=== PATIENT | female | born 1970 | race Caucasian/White ===

== ENCOUNTER 2017-09-23 21:34 | Inpatient (IN) | payer OTHER ==
[2017-09-23] MEDS: HEPARIN 5,000 UNIT/0.5 ML VIAL SC ×2 (09:00→21:00)
[2017-09-24 01:09] LABS: ADD MAN DIFF? NO
[2017-09-24 01:13] LABS: WHITE BLOOD COUNT 12.7 10^3/ul (4.8-10.8)
[2017-09-24 01:13] LABS: BASOPHILS % 0.2 % (0.0-2.0); EOSINOPHILS # 0.1 10^3/ul (0.0-0.5); EOSINOPHILS % 0.9 % (0.0-7.0); HEMOGLOBIN 7.3 g/dl (12.0-16.0); LYMPHOCYTES # 1.3 10^3/ul (0.8-2.9); LYMPHOCYTES % 10.5 % (15.0-51.0); MEAN CORPUSCULAR HEMOGLOBIN 26.3 pg (29.0-33.0); MEAN CORPUSCULAR HGB CONC 33.2 g/dl (32.0-37.0); MEAN CORPUSCULAR VOLUME 79.1 fl (82.0-101.0); MONOCYTE # 0.5 10^3/ul (0.3-0.9); MONOCYTES % 3.6 % (0.0-11.0); NEUTROPHIL # 10.7 10^3/ul (1.6-7.5); NEUTROPHILS % 84.2 % (39.0-77.0); PLATELET COUNT 435 10^3/UL (140-415); RED BLOOD COUNT 2.78 10^6/ul (4.20-5.40); RED CELL DISTRIBUTION WIDTH 13.9 % (11.5-14.5)
[2017-09-24 01:30] LABS: PHOSPHORUS 5.6 mg/dl (2.5-4.9)
[2017-09-24 01:30] LABS: MAGNESIUM 2.1 mg/dl (1.7-2.5)
[2017-09-24 01:31] LABS: INR 1.01; PROTIME 13.4 Sec (11.9-14.9)
[2017-09-24 01:32] LABS: PARTIAL THROMBOPLASTIN TIME 34.3 Sec (25.0-35.0)
[2017-09-24] MEDS: ACETAMINOPHEN 325 MG TAB PO ×2 (01:33→20:13)
[2017-09-24 01:34] LABS: D-DIMER 3446.92 ng/ml (<460)
[2017-09-24 03:24] LABS: ALANINE AMINOTRANSFERASE 64 IU/L (13-69); ALBUMIN 3.1 g/dl (3.3-4.9); ALBUMIN/GLOBULIN RATIO 0.88; ALKALINE PHOSPHATASE 108 IU/L (42-121); ANION GAP 11 (8-16); ASPARTATE AMINO TRANSFERASE 42 IU/L (15-46); BILIRUBIN,INDIRECT 0.9 mg/dl (0-1.1); BILIRUBIN,TOTAL 0.9 mg/dl (0.2-1.3); BLOOD UREA NITROGEN 45 mg/dl (7-20); CALCIUM 8.6 mg/dl (8.4-10.2); CARBON DIOXIDE 21 mmol/L (21-31); CHLORIDE 110 mmol/L (97-110); CREATININE 3.25 mg/dl (0.44-1.00); GLUCOSE 106 mg/dl (70-220); POTASSIUM 3.2 mmol/L (3.5-5.1); SODIUM 139 mmol/L (135-144); TOTAL PROTEIN 6.6 g/dl (6.1-8.1)
[2017-09-24] MEDS: HEPARIN 5,000 UNIT/0.5 ML VIAL SC ×2 (08:37→20:17)
[2017-09-24] MEDS ORDERED: ONDANSETRON 4 MG INJ IV (09:30)
[2017-09-24] MEDS ORDERED: NACL 0.9% 3 ML SYG IV (09:30)
[2017-09-24] MEDS ORDERED: ALBUTEROL/IPRATROPIUM (NEB) 3 ML AMP HHN (09:30)
[2017-09-24] MEDS: POTASSIUM CHLORIDE (SR) 20 MEQ TAB PO (10:18)
[2017-09-24] MEDS: LEVOFLOXACIN 500MG/D5W (PMX) 100 ML IVPB (10:18)
[2017-09-24] MEDS: CEFTRIAXONE 1 GM/50 ML (PMX) 50 ML IVPB (13:08)
[2017-09-24] MEDS: AZITHROMYCIN 500MG/NS (PMX) 250 ML IVPB (13:56)
[2017-09-24] MEDS: SOD CHLORIDE 0.45% 1,000 ML IV (17:39)
[2017-09-24 18:31] LABS: HAAIG REFLEX REFLEX FILED
[2017-09-24 18:50] LABS: MAGNESIUM 2.1 mg/dl (1.7-2.5)
[2017-09-24 19:00] LABS: B-TYPE NATRIURETIC PEPTIDE 4450 PG/ML (0-125)
[2017-09-24 19:12] LABS: IRON 25 ug/dl (35-150)
[2017-09-24 19:21] LABS: % IRON SATURATION 10 % SAT (22-52); TOTAL IRON BINDING CAPACITY 254 ug/dl (241-421)
[2017-09-24 19:22] LABS: HEPATITIS B SURFACE ANTIGEN NEGATIVE (NEGATIVE)
[2017-09-24 19:40] LABS: HEPATITIS B CORE ANTIBODY NEGATIVE (NEGATIVE); HEPATITIS C VIRAL ANTIBODY NEGATIVE (NEGATIVE)
[2017-09-24] MEDS ORDERED: HEPARIN 5,000 UNIT/0.5 ML VIAL SC (21:00)
[2017-09-25] MEDS: ZOLPIDEM 5 MG TAB PO (02:20)
[2017-09-25 06:08] LABS: ADD MAN DIFF? NO
[2017-09-25 06:14] LABS: WHITE BLOOD COUNT 11.2 10^3/ul (4.8-10.8)
[2017-09-25 06:14] LABS: ABNORMAL IP MESSAGE 1; BASOPHILS % 0.1 % (0.0-2.0); EOSINOPHILS # 0.2 10^3/ul (0.0-0.5); EOSINOPHILS % 1.8 % (0.0-7.0); HEMATOCRIT 20.1 % (37.0-47.0); LYMPHOCYTES # 1.3 10^3/ul (0.8-2.9); LYMPHOCYTES % 11.8 % (15.0-51.0); MEAN CORPUSCULAR HEMOGLOBIN 25.7 pg (29.0-33.0); MEAN CORPUSCULAR HGB CONC 32.3 g/dl (32.0-37.0); MEAN CORPUSCULAR VOLUME 79.4 fl (82.0-101.0); MEAN PLATELET VOLUME 9.2 fl (7.4-10.4); MONOCYTE # 0.6 10^3/ul (0.3-0.9); MONOCYTES % 5.2 % (0.0-11.0); NEUTROPHILS % 80.3 % (39.0-77.0); PLATELET COUNT 449 10^3/UL (140-415); RED BLOOD COUNT 2.53 10^6/ul (4.20-5.40); RED CELL DISTRIBUTION WIDTH 14.3 % (11.5-14.5)
[2017-09-25 06:52] LABS: PHOSPHORUS 4.4 mg/dl (2.5-4.9)
[2017-09-25 06:55] LABS: IRON 24 ug/dl (35-150)
[2017-09-25 07:02] LABS: ALANINE AMINOTRANSFERASE 89 IU/L (13-69); ALBUMIN 3.1 g/dl (3.3-4.9); ALBUMIN/GLOBULIN RATIO 0.93; ALKALINE PHOSPHATASE 123 IU/L (42-121); ANION GAP 12 (8-16); ASPARTATE AMINO TRANSFERASE 59 IU/L (15-46); BILIRUBIN,INDIRECT 1.2 mg/dl (0-1.1); BILIRUBIN,TOTAL 1.2 mg/dl (0.2-1.3); BLOOD UREA NITROGEN 53 mg/dl (7-20); CALCIUM 8.2 mg/dl (8.4-10.2); CARBON DIOXIDE 19 mmol/L (21-31); CHLORIDE 114 mmol/L (97-110); GLUCOSE 101 mg/dl (70-220); HEMOGLOBIN 6.5 g/dl (12.0-16.0); MAGNESIUM 2.2 mg/dl (1.7-2.5); POTASSIUM 3.2 mmol/L (3.5-5.1); SODIUM 142 mmol/L (135-144); TOTAL PROTEIN 6.4 g/dl (6.1-8.1)
[2017-09-25 07:03] LABS: POSITIVE DIFF @See below
[2017-09-25 07:04] LABS: TOTAL IRON BINDING CAPACITY 245 ug/dl (241-421)
[2017-09-25 07:13] LABS: % IRON SATURATION 10 % SAT (22-52)
[2017-09-25] MEDS: AMLODIPINE 5 MG TAB PO (08:30)
[2017-09-25] MEDS: HEPARIN 5,000 UNIT/0.5 ML VIAL SC ×2 (08:33→20:21)
[2017-09-25 08:40] LABS: HEMOGLOBIN A1C 5.9 % (0-5.9)
[2017-09-25 10:41] LABS: ANISOCYTOSIS 1+ (0-0); BAND NEUTROPHILS #M 0.1 10^3/ul (0.0-0.6); BAND NEUTROPHILS % (M) 1 % (0-4); EOSINOPHILS % (M) 1 % (0-7); HYPOCHROMASIA 1+ (0-0); LYMPHOCYTES #M 0.6 10^3/ul (0.8-2.9); LYMPHOCYTES % (M) 6 % (15-51); MICROCYTOSIS 1+ (0-0); MONOCYTE #M 0.1 10^3/ul (0.3-0.9); MONOCYTES % (M) 1 % (0-11); PLATELET ESTIMATE NORMAL; POLYCHROMASIA 3+ (0-0); SEG NEUT #M 10.2 10^3/ul (1.6-7.5); SEGMENTED NEUTROPHILS (M) % 91 % (39-77); SMUDGE%M 15 % (0-0)
[2017-09-25] MEDS: POTASSIUM CHLORIDE (SR) 20 MEQ TAB PO (10:43)
[2017-09-25] MEDS: CEFTRIAXONE 1 GM/50 ML (PMX) 50 ML IVPB (12:06)
[2017-09-25] MEDS: AZITHROMYCIN 500MG/NS (PMX) 250 ML IVPB (12:14)
[2017-09-25] MEDS: SOD CHLORIDE 0.45% 1,000 ML IV (13:30)
[2017-09-25 15:21] LABS: IMMEDIATE SPIN CROSSMATCH 1 2
[2017-09-25] MEDS: SOD CHLORIDE 0.9% 250 ML IV* (15:29)
[2017-09-25] MEDS: ACETAMINOPHEN 325 MG TAB PO (16:01)
[2017-09-25 17:02] LABS: COMPLEMENT C3 179 mg/dl (88-165); COMPLEMENT C4 42 mg/dl (14-44)
[2017-09-25 17:40] LABS: RETICULOCYTE COUNT # 0.081 X10^6 (0.020-0.110); RETICULOCYTE COUNT % 2.9 % (0.5-1.5)
[2017-09-25 17:40] LABS: RETICULOCYTE RBC 2.83
[2017-09-25 17:55] LABS: CREATININE,URINE RANDOM 73.92 mg/dl (20-320); CREATININE,URINE RANDOM 74.13 mg/dl (20-320)
[2017-09-25 18:04] LABS: SODIUM,URINE RANDOM 41 mmol/L (30-90)
[2017-09-25 18:05] LABS: LACTATE DEHYDROGENASE 2001 IU/L (313-618)
[2017-09-25] MEDS: FUROSEMIDE 40 MG INJ IV (18:07)
[2017-09-25 18:39] LABS: ADD UMIC YES; UR AMORPHOUS CRYSTAL MODERATE /HPF (NONE SEEN); UR ASCORBIC ACID NEGATIVE (NEGATIVE); UR BACTERIA FEW /HPF (NONE SEEN); UR BILIRUBIN (Dip) NEGATIVE (NEGATIVE); UR BLOOD (Dip) 3+ mg/dL (NEGATIVE); UR CLARITY SLIGHTLY CLOUDY (CLEAR); UR COLOR YELLOW (YELLOW); UR GLUCOSE (Dip) NEGATIVE (NEGATIVE); UR KETONES (Dip) NEGATIVE (NEGATIVE); UR LEUKOCYTE ESTERASE (Dip) NEGATIVE Leu/ul (NEGATIVE); UR NITRITE (Dip) NEGATIVE (NEGATIVE); UR RBC 165 /HPF (0-5); UR SPECIFIC GRAVITY (Dip) 1.015 (1.003-1.030); UR SQUAMOUS EPITHELIAL CELL FEW /HPF (FEW); UR TOTAL PROTEIN (Dip) 3+ mg/dl (NEGATIVE); UR UROBILINOGEN (Dip) NEGATIVE (NEGATIVE); UR WBC 20 /HPF (0-5)
[2017-09-25 19:03] LABS: PROTEIN URINE > 600.0 mg/dl (0.0-11.9); PROTEIN/CREAT RATIO 8.11 RATIO
[2017-09-25] MEDS ORDERED: ZOLPIDEM 5 MG TAB PO (21:00)
[2017-09-25 21:03] LABS: OSMOLALITY,URINE 366 mOsm/kg (250-1200)
[2017-09-25] MEDS: LORAZEPAM 2 MG INJ IV (21:40)
[2017-09-26 07:25] LABS: ADD MAN DIFF? NO
[2017-09-26 07:34] LABS: WHITE BLOOD COUNT 11.7 10^3/ul (4.8-10.8)
[2017-09-26 07:34] LABS: BASOPHILS % 0.1 % (0.0-2.0); EOSINOPHILS # 0.2 10^3/ul (0.0-0.5); HEMATOCRIT 25.1 % (37.0-47.0); HEMOGLOBIN 8.3 g/dl (12.0-16.0); LYMPHOCYTES # 1.2 10^3/ul (0.8-2.9); LYMPHOCYTES % 10.5 % (15.0-51.0); MEAN CORPUSCULAR HEMOGLOBIN 26.6 pg (29.0-33.0); MEAN CORPUSCULAR HGB CONC 33.1 g/dl (32.0-37.0); MEAN CORPUSCULAR VOLUME 80.4 fl (82.0-101.0); MEAN PLATELET VOLUME 8.9 fl (7.4-10.4); MONOCYTE # 0.5 10^3/ul (0.3-0.9); MONOCYTES % 4.4 % (0.0-11.0); NEUTROPHIL # 9.5 10^3/ul (1.6-7.5); NEUTROPHILS % 81.8 % (39.0-77.0); PLATELET COUNT 449 10^3/UL (140-415); RED BLOOD COUNT 3.12 10^6/ul (4.20-5.40); RED CELL DISTRIBUTION WIDTH 15.1 % (11.5-14.5)
[2017-09-26 07:55] LABS: ALANINE AMINOTRANSFERASE 92 IU/L (13-69); ALBUMIN 3.1 g/dl (3.3-4.9); ALBUMIN/GLOBULIN RATIO 0.86; ALKALINE PHOSPHATASE 143 IU/L (42-121); ANION GAP 13 (8-16); ASPARTATE AMINO TRANSFERASE 56 IU/L (15-46); BILIRUBIN,INDIRECT 1.7 mg/dl (0-1.1); BILIRUBIN,TOTAL 1.7 mg/dl (0.2-1.3); BLOOD UREA NITROGEN 63 mg/dl (7-20); CALCIUM 8.2 mg/dl (8.4-10.2); CARBON DIOXIDE 19 mmol/L (21-31); CHLORIDE 114 mmol/L (97-110); CREATININE 4.61 mg/dl (0.44-1.00); GLUCOSE 98 mg/dl (70-220); POTASSIUM 3.3 mmol/L (3.5-5.1); SODIUM 143 mmol/L (135-144); TOTAL PROTEIN 6.7 g/dl (6.1-8.1)
[2017-09-26] MEDS: AMLODIPINE 5 MG TAB PO (09:05)
[2017-09-26] MEDS: HEPARIN 5,000 UNIT/0.5 ML VIAL SC (09:07)
[2017-09-26] MEDS: SOD CHLORIDE 0.45% 1,000 ML IV (09:13)
[2017-09-26] MEDS: CEFTRIAXONE 1 GM/50 ML (PMX) 50 ML IVPB (12:47)
[2017-09-26] MEDS: POTASSIUM CHLORIDE (SR) 20 MEQ TAB PO (13:02)
[2017-09-26] MEDS: METHYLPREDNISOLONE 125 MG INJ IV ×2 (14:16→22:34)
[2017-09-26] MEDS: FUROSEMIDE 20 MG INJ IV (14:17)
[2017-09-26] MEDS: FAMOTIDINE 20 MG INJ IV (14:17)
[2017-09-26] MEDS: ZOLPIDEM 5 MG TAB PO (22:45)
[2017-09-27] MEDS: AMLODIPINE 5 MG TAB PO (08:18)
[2017-09-27] MEDS: METHYLPREDNISOLONE 125 MG INJ IV ×2 (08:19→21:19)
[2017-09-27] MEDS: FUROSEMIDE 20 MG INJ IV (08:19)
[2017-09-27] MEDS: FAMOTIDINE 20 MG INJ IV (08:19)
[2017-09-27 08:22] LABS: HIV 1&2 ANTIBODY NEGATIVE (NEGATIVE)
[2017-09-27 10:09] LABS: ADD MAN DIFF? NO
[2017-09-27 10:14] LABS: WHITE BLOOD COUNT 13.4 10^3/ul (4.8-10.8)
[2017-09-27 10:14] LABS: BASOPHILS % 0.1 % (0.0-2.0); HEMATOCRIT 25.7 % (37.0-47.0); HEMOGLOBIN 8.6 g/dl (12.0-16.0); LYMPHOCYTES % 7.2 % (15.0-51.0); MEAN CORPUSCULAR HEMOGLOBIN 26.4 pg (29.0-33.0); MEAN CORPUSCULAR HGB CONC 33.5 g/dl (32.0-37.0); MEAN CORPUSCULAR VOLUME 78.8 fl (82.0-101.0); MEAN PLATELET VOLUME 9.2 fl (7.4-10.4); MONOCYTE # 0.2 10^3/ul (0.3-0.9); MONOCYTES % 1.8 % (0.0-11.0); NEUTROPHILS % 89.5 % (39.0-77.0); PLATELET COUNT 472 10^3/UL (140-415); RED BLOOD COUNT 3.26 10^6/ul (4.20-5.40); RED CELL DISTRIBUTION WIDTH 15.3 % (11.5-14.5)
[2017-09-27 10:38] LABS: ALANINE AMINOTRANSFERASE 83 IU/L (13-69); ALBUMIN 3.3 g/dl (3.3-4.9); ALBUMIN/GLOBULIN RATIO 0.91; ALKALINE PHOSPHATASE 152 IU/L (42-121); ANION GAP 15 (8-16); ASPARTATE AMINO TRANSFERASE 37 IU/L (15-46); BILIRUBIN,INDIRECT 1.2 mg/dl (0-1.1); BILIRUBIN,TOTAL 1.2 mg/dl (0.2-1.3); BLOOD UREA NITROGEN 88 mg/dl (7-20); CALCIUM 8.2 mg/dl (8.4-10.2); CARBON DIOXIDE 16 mmol/L (21-31); CHLORIDE 113 mmol/L (97-110); CREATININE 5.43 mg/dl (0.44-1.00); GLUCOSE 141 mg/dl (70-220); POTASSIUM 3.4 mmol/L (3.5-5.1); SODIUM 141 mmol/L (135-144); TOTAL PROTEIN 6.9 g/dl (6.1-8.1)
[2017-09-27 13:46] LABS: ANA SCREEN NEGATIVE (NEGATIVE)
[2017-09-27] MEDS: POTASSIUM CHLORIDE 100 ML IVPB (14:13)
[2017-09-27 14:32] LABS: ANCA SCREEN NEGATIVE (NEGATIVE)
[2017-09-27] MEDS: POTASSIUM CHLORIDE (SR) 20 MEQ TAB PO (14:54)
[2017-09-27] MEDS: LORAZEPAM 2 MG INJ IV (21:44)
[2017-09-28] MEDS: DIPHENHYDRAMINE 50 MG INJ IV (06:57)
[2017-09-28 08:27] LABS: ADD MAN DIFF? NO
[2017-09-28] MEDS: PROPOFOL 40 ML (08:27)
[2017-09-28] MEDS: FENTAnyl 50 MCG/ML VIAL (08:27)
[2017-09-28] MEDS: MIDAZOLAM 1 MG/ML 2 ML INJ (08:27)
[2017-09-28 08:36] LABS: WHITE BLOOD COUNT 17.5 10^3/ul (4.8-10.8)
[2017-09-28 08:36] LABS: BASOPHILS % 0.1 % (0.0-2.0); HEMATOCRIT 26.4 % (37.0-47.0); HEMOGLOBIN 8.6 g/dl (12.0-16.0); LYMPHOCYTES # 1.3 10^3/ul (0.8-2.9); LYMPHOCYTES % 7.4 % (15.0-51.0); MEAN CORPUSCULAR HEMOGLOBIN 25.9 pg (29.0-33.0); MEAN CORPUSCULAR HGB CONC 32.6 g/dl (32.0-37.0); MEAN CORPUSCULAR VOLUME 79.5 fl (82.0-101.0); MEAN PLATELET VOLUME 9.1 fl (7.4-10.4); MONOCYTE # 0.6 10^3/ul (0.3-0.9); MONOCYTES % 3.5 % (0.0-11.0); NEUTROPHIL # 15.3 10^3/ul (1.6-7.5); NEUTROPHILS % 87.2 % (39.0-77.0); PLATELET COUNT 512 10^3/UL (140-415); RED BLOOD COUNT 3.32 10^6/ul (4.20-5.40); RED CELL DISTRIBUTION WIDTH 15.7 % (11.5-14.5)
[2017-09-28] MEDS: AMLODIPINE 5 MG TAB PO ×2 (08:37→11:16)
[2017-09-28] MEDS: METHYLPREDNISOLONE 125 MG INJ IV ×2 (08:54→11:16)
[2017-09-28] MEDS: FAMOTIDINE 20 MG INJ IV ×2 (08:54→17:22)
[2017-09-28] MEDS: ONDANSETRON 4 MG INJ (08:56)
[2017-09-28 09:04] LABS: ANION GAP 15 (8-16); BLOOD UREA NITROGEN 116 mg/dl (7-20); CALCIUM 8.1 mg/dl (8.4-10.2); CARBON DIOXIDE 17 mmol/L (21-31); CHLORIDE 113 mmol/L (97-110); CREATININE 6.38 mg/dl (0.44-1.00); GLUCOSE 122 mg/dl (70-220); LACTATE DEHYDROGENASE 1721 IU/L (313-618); MAGNESIUM 2.3 mg/dl (1.7-2.5); PHOSPHORUS 7.6 mg/dl (2.5-4.9); POTASSIUM 4.2 mmol/L (3.5-5.1); SODIUM 141 mmol/L (135-144)
[2017-09-28] MEDS: SOD CHLORIDE 0.9% 500 ML (09:07)
[2017-09-28] MEDS ORDERED: HYDROmorphONE 1 MG/5 ML IV SYRINGE IV ×3 (09:30)
[2017-09-28] MEDS ORDERED: DIPHENHYDRAMINE 50 MG INJ IV (09:30)
[2017-09-28] MEDS ORDERED: MEPERIDINE 25 MG INJ IV (09:30)
[2017-09-28] MEDS ORDERED: FENTAnyl 50 MCG/ML VIAL IV ×2 (09:30)
[2017-09-28] MEDS ORDERED: ONDANSETRON 4 MG INJ IV (09:30)
[2017-09-28] MEDS: LIDOCAINE 1% (MDV) 10 ML INJ (09:45)
[2017-09-28] MEDS: GELATIN 12MM X 7 MM SPONGE (09:50)
[2017-09-28] MEDS: CALCIUM ACETATE 667 MG CAP PO (17:22)
[2017-09-28] MEDS: METHYLPRED. NA SUCC 1,000 MG in DEXTROSE 5% 50 ML IVPB (17:22)
[2017-09-28] MEDS: ONDANSETRON 4 MG INJ IV (17:22)
[2017-09-28] MEDS: INSULIN ASPART [NOVOLOG] 3 ML PEN SC ×2 (17:22→21:08)
[2017-09-28 17:24] LABS: ADD MAN DIFF? NO
[2017-09-28 17:26] LABS: WHITE BLOOD COUNT 16.9 10^3/ul (4.8-10.8)
[2017-09-28 17:26] LABS: BASOPHILS % 0.1 % (0.0-2.0); HEMATOCRIT 26.9 % (37.0-47.0); HEMOGLOBIN 8.9 g/dl (12.0-16.0); LYMPHOCYTES # 1.1 10^3/ul (0.8-2.9); LYMPHOCYTES % 6.6 % (15.0-51.0); MEAN CORPUSCULAR HEMOGLOBIN 26.2 pg (29.0-33.0); MEAN CORPUSCULAR HGB CONC 33.1 g/dl (32.0-37.0); MEAN CORPUSCULAR VOLUME 79.1 fl (82.0-101.0); MEAN PLATELET VOLUME 8.7 fl (7.4-10.4); MONOCYTE # 0.8 10^3/ul (0.3-0.9); MONOCYTES % 4.4 % (0.0-11.0); NEUTROPHIL # 14.7 10^3/ul (1.6-7.5); PLATELET COUNT 524 10^3/UL (140-415); RED CELL DISTRIBUTION WIDTH 15.7 % (11.5-14.5)
[2017-09-28 19:00] LABS: IMMUNOGLOBULIN A 171 mg/dl (70-400); IMMUNOGLOBULIN G 775 mg/dl (700-1600); IMMUNOGLOBULIN M 118 mg/dl (40-230)
[2017-09-28 19:21] LABS: ADD UMIC YES; UR AMORPHOUS CRYSTAL FEW /HPF (NONE SEEN); UR ASCORBIC ACID NEGATIVE (NEGATIVE); UR BACTERIA FEW /HPF (NONE SEEN); UR BILIRUBIN (Dip) NEGATIVE (NEGATIVE); UR BLOOD (Dip) 3+ mg/dL (NEGATIVE); UR CLARITY CLOUDY (CLEAR); UR COLOR RED (YELLOW); UR GLUCOSE (Dip) NEGATIVE (NEGATIVE); UR KETONES (Dip) NEGATIVE (NEGATIVE); UR LEUKOCYTE ESTERASE (Dip) NEGATIVE Leu/ul (NEGATIVE); UR NITRITE (Dip) NEGATIVE (NEGATIVE); UR RBC > 182 /HPF (0-5); UR SPECIFIC GRAVITY (Dip) 1.013 (1.003-1.030); UR SQUAMOUS EPITHELIAL CELL MODERATE /HPF (FEW); UR TOTAL PROTEIN (Dip) 3+ mg/dl (NEGATIVE); UR UROBILINOGEN (Dip) NEGATIVE (NEGATIVE); UR WBC 20 /HPF (0-5)
[2017-09-28] MEDS: NA BICARBONATE 650 MG TAB PO (20:59)
[2017-09-28] MEDS: CALCIUM/VITAMIN D (250/125) TAB PO (21:00)
[2017-09-28] MEDS: LORAZEPAM 2 MG INJ IV (21:10)
[2017-09-28 22:40] LABS: COLD AGGLUTININ 0 (<=1:32)
[2017-09-29] MEDS: ACCU-CHEK XX (02:08)
[2017-09-29 06:08] LABS: ADD MAN DIFF? NO
[2017-09-29 06:16] LABS: BASOPHILS % 0.1 % (0.0-2.0); HEMATOCRIT 26.1 % (37.0-47.0); HEMOGLOBIN 8.8 g/dl (12.0-16.0); LYMPHOCYTES # 1.2 10^3/ul (0.8-2.9); LYMPHOCYTES % 7.8 % (15.0-51.0); MEAN CORPUSCULAR HEMOGLOBIN 27.2 pg (29.0-33.0); MEAN CORPUSCULAR HGB CONC 33.7 g/dl (32.0-37.0); MEAN CORPUSCULAR VOLUME 80.6 fl (82.0-101.0); MEAN PLATELET VOLUME 9.1 fl (7.4-10.4); MONOCYTE # 0.4 10^3/ul (0.3-0.9); MONOCYTES % 2.4 % (0.0-11.0); NEUTROPHIL # 13.1 10^3/ul (1.6-7.5); NEUTROPHILS % 87.8 % (39.0-77.0); PLATELET COUNT 495 10^3/UL (140-415); RED BLOOD COUNT 3.24 10^6/ul (4.20-5.40); RED CELL DISTRIBUTION WIDTH 15.5 % (11.5-14.5)
[2017-09-29 06:42] LABS: ANION GAP 17 (8-16); CALCIUM 8.1 mg/dl (8.4-10.2); CARBON DIOXIDE 15 mmol/L (21-31); CHLORIDE 110 mmol/L (97-110); GLUCOSE 129 mg/dl (70-220); POTASSIUM 4.3 mmol/L (3.5-5.1); SODIUM 138 mmol/L (135-144)
[2017-09-29 06:45] LABS: MAGNESIUM 2.2 mg/dl (1.7-2.5)
[2017-09-29 06:45] LABS: PHOSPHORUS 10.4 mg/dl (2.5-4.9)
[2017-09-29 06:49] LABS: BLOOD UREA NITROGEN 136 mg/dl (7-20)
[2017-09-29 06:57] LABS: CREATINE KINASE 96 IU/L (23-200)
[2017-09-29 07:20] LABS: RETICULOCYTE COUNT # 0.132 X10^6 (0.020-0.110)
[2017-09-29 07:20] LABS: RETICULOCYTE RBC 3.28
[2017-09-29] MEDS: CALCIUM ACETATE 667 MG CAP PO ×3 (08:08→17:44)
[2017-09-29] MEDS: NA BICARBONATE 650 MG TAB PO ×3 (08:10→21:25)
[2017-09-29] MEDS: METHYLPRED. NA SUCC 500 MG in DEXTROSE 5% 50 ML IVPB ×2 (08:10→21:25)
[2017-09-29] MEDS: AMLODIPINE 5 MG TAB PO (08:10)
[2017-09-29] MEDS: CALCIUM/VITAMIN D (250/125) TAB PO ×2 (08:10→21:25)
[2017-09-29] MEDS: ONDANSETRON 4 MG INJ IV (08:11)
[2017-09-29] MEDS: INSULIN ASPART [NOVOLOG] 3 ML PEN SC ×4 (08:21→21:57)
[2017-09-29] MEDS: FAMOTIDINE 20 MG INJ IV (08:23)
[2017-09-29 08:41] LABS: BILIRUBIN,INDIRECT 0.8 mg/dl (0-1.1); BILIRUBIN,TOTAL 0.8 mg/dl (0.2-1.3)
[2017-09-29] MEDS: SODIUM BICARBONATE (IV ADD) 100 MEQ in DEXTROSE 5% 1,000 ML IV (09:37)
[2017-09-29] MEDS ORDERED: ALBUMIN HUMAN 25% 50 ML IV (10:00)
[2017-09-29] MEDS ORDERED: SODIUM CHLORIDE 0.9% 1L BAG IV (10:00)
[2017-09-29] MEDS: CEFTRIAXONE 1 GM/50 ML (PMX) 50 ML IVPB (10:14)
[2017-09-29] MEDS ORDERED: HEPARIN 1000 UNITS/ML 10 ML INJ (12:59)
[2017-09-29] MEDS ORDERED: LIDOCAINE 1% (MDV) 10 ML INJ (12:59)
[2017-09-29 13:04] LABS: OCCULT BLOOD STOOL NEGATIVE (NEGATIVE)
[2017-09-29] MEDS: ACETAMINOPHEN 325 MG TAB PO ×2 (13:49→20:29)
[2017-09-29] MEDS: MANNITOL 25% 50 ML IV ×2 (17:02→17:25)
[2017-09-29] MEDS: HEPARIN 1000 UNITS/ML 10 ML INJ CATHETER (17:46)
[2017-09-29] MEDS ORDERED: CALCIUM GLUCONATE IVPB (19:53)
[2017-09-29] MEDS ORDERED: DEXTROSE 5% IVPB (19:53)
[2017-09-29] MEDS: ALBUMIN HUMAN 5% IV (20:55)
[2017-09-29] MEDS: CITRATE DEXTROSE SOLUTION 1,000 ML SOLUTION MC (20:55)
[2017-09-29] MEDS: DEXTROSE 5% IVPB (20:58)
[2017-09-29] MEDS: CALCIUM GLUCONATE IVPB (20:58)
[2017-09-30] MEDS: ACCU-CHEK XX (02:14)
[2017-09-30 04:57] LABS: ADD MAN DIFF? NO
[2017-09-30 05:00] LABS: BASOPHILS % 0.1 % (0.0-2.0); HEMATOCRIT 24.4 % (37.0-47.0); HEMOGLOBIN 8.4 g/dl (12.0-16.0); LYMPHOCYTES # 1.2 10^3/ul (0.8-2.9); MEAN CORPUSCULAR HGB CONC 34.4 g/dl (32.0-37.0); MEAN CORPUSCULAR VOLUME 78.5 fl (82.0-101.0); MEAN PLATELET VOLUME 8.6 fl (7.4-10.4); MONOCYTE # 0.6 10^3/ul (0.3-0.9); NEUTROPHIL # 12.5 10^3/ul (1.6-7.5); NEUTROPHILS % 86.1 % (39.0-77.0); PLATELET COUNT 404 10^3/UL (140-415); RED BLOOD COUNT 3.11 10^6/ul (4.20-5.40); RED CELL DISTRIBUTION WIDTH 15.4 % (11.5-14.5)
[2017-09-30 05:00] LABS: WHITE BLOOD COUNT 14.6 10^3/ul (4.8-10.8)
[2017-09-30 05:27] LABS: PROTIME 17.4 Sec (11.9-14.9); PT RATIO 1.4
[2017-09-30 05:28] LABS: PARTIAL THROMBOPLASTIN TIME 26.1 Sec (25.0-35.0)
[2017-09-30 05:37] LABS: ANION GAP 18 (8-16); BLOOD UREA NITROGEN 105 mg/dl (7-20); CALCIUM 7.7 mg/dl (8.4-10.2); CARBON DIOXIDE 18 mmol/L (21-31); CHLORIDE 110 mmol/L (97-110); CREATININE 5.12 mg/dl (0.44-1.00); GLUCOSE 115 mg/dl (70-220); POTASSIUM 4.1 mmol/L (3.5-5.1); SODIUM 142 mmol/L (135-144)
[2017-09-30 05:53] LABS: MAGNESIUM 1.8 mg/dl (1.7-2.5)
[2017-09-30] MEDS: CALCIUM ACETATE 667 MG CAP PO ×3 (08:29→17:17)
[2017-09-30] MEDS: NA BICARBONATE 650 MG TAB PO (08:30)
[2017-09-30] MEDS: CEFTRIAXONE 1 GM/50 ML (PMX) 50 ML IVPB (08:30)
[2017-09-30] MEDS: CALCIUM/VITAMIN D (250/125) TAB PO ×2 (08:30→21:11)
[2017-09-30] MEDS: INSULIN ASPART [NOVOLOG] 3 ML PEN SC ×4 (08:31→21:26)
[2017-09-30] MEDS: METHYLPRED. NA SUCC 500 MG in DEXTROSE 5% 50 ML IVPB ×2 (08:32→21:11)
[2017-09-30] MEDS: AMLODIPINE 5 MG TAB PO (08:32)
[2017-09-30] MEDS ORDERED: MANNITOL 25% 50 ML IV (09:00)
[2017-09-30] MEDS ORDERED: SODIUM CHLORIDE 0.9% 1L BAG IV (09:00)
[2017-09-30] MEDS ORDERED: ALBUMIN HUMAN 25% 50 ML IV (09:00)
[2017-09-30] MEDS: ACETAMINOPHEN 325 MG TAB PO ×2 (09:22→23:31)
[2017-09-30] MEDS: ONDANSETRON 4 MG INJ IV (09:22)
[2017-09-30] MEDS ORDERED: FAMOTIDINE 20 MG TAB PO (09:30)
[2017-09-30] MEDS: MANNITOL 25% 50 ML IV ×2 (11:59→13:00)
[2017-09-30] MEDS: HEPARIN 1000 UNITS/ML 10 ML INJ CATHETER (14:20)
[2017-09-30] MEDS: SOD CHLORIDE 0.9% 250 ML IV* (15:35)
[2017-09-30] MEDS ORDERED: CA GLUCONATE (50 MG/ML) IV SYG IVPB (16:00)
[2017-09-30] MEDS: ALBUMIN HUMAN 5% 500ML INJ CATHETER (16:30)
[2017-09-30] MEDS: CALCIUM GLUCONATE IVPB (18:18)
[2017-09-30] MEDS: CITRATE DEXTROSE SOLUTION 1,000 ML SOLUTION MC (18:18)
[2017-09-30] MEDS: DEXTROSE 5% IVPB (18:18)
[2017-09-30] MEDS: ONDANSETRON INJ 16 MG, DEXAMETHASONE 4 MG/ML 20 MG in SOD CHLORIDE 0.9% 50 ML IV (21:56)
[2017-09-30] MEDS: CYCLOPHOSPHAMIDE IV (22:51)
[2017-09-30] MEDS: SOD CHLORIDE 0.9% IV (22:51)
[2017-10-01] MEDS: ACCU-CHEK XX (02:45)
[2017-10-01] MEDS: INSULIN ASPART [NOVOLOG] 3 ML PEN SC ×5 (07:35→21:00)
[2017-10-01] MEDS: CALCIUM/VITAMIN D (250/125) TAB PO ×2 (08:09→21:13)
[2017-10-01] MEDS: CALCIUM ACETATE 667 MG CAP PO ×3 (08:09→18:16)
[2017-10-01] MEDS: MULTIVIT/CA CARB/B CMPLX/FA TAB PO (08:09)
[2017-10-01] MEDS: CEFTRIAXONE 1 GM/50 ML (PMX) 50 ML IVPB (08:09)
[2017-10-01 10:51] LABS: ANION GAP 17 (8-16); BLOOD UREA NITROGEN 85 mg/dl (7-20); CALCIUM 8.1 mg/dl (8.4-10.2); CARBON DIOXIDE 25 mmol/L (21-31); CHLORIDE 101 mmol/L (97-110); CREATININE 4.44 mg/dl (0.44-1.00); GLUCOSE 223 mg/dl (70-220); POTASSIUM 3.6 mmol/L (3.5-5.1); SODIUM 139 mmol/L (135-144)
[2017-10-01] MEDS ORDERED: GLUCOSE GEL 15 GRAM TUBE BUCCAL (13:00)
[2017-10-01] MEDS ORDERED: DEXTROSE 50% 50 ML SYRINGE IV ×2 (13:00)
[2017-10-01] MEDS ORDERED: GLUCAGON 1 MG INJ IM (13:00)
[2017-10-01] MEDS ORDERED: GLUCOSE GEL 15 GRAM TUBE PO ×2 (13:00)
[2017-10-01 13:17] LABS: ADD MAN DIFF? NO
[2017-10-01 13:20] LABS: WHITE BLOOD COUNT 15.2 10^3/ul (4.8-10.8)
[2017-10-01 13:20] LABS: ABNORMAL IP MESSAGE 1; BASOPHILS % 0.1 % (0.0-2.0); HEMATOCRIT 25.5 % (37.0-47.0); HEMOGLOBIN 8.7 g/dl (12.0-16.0); LYMPHOCYTES # 0.5 10^3/ul (0.8-2.9); LYMPHOCYTES % 3.3 % (15.0-51.0); MEAN CORPUSCULAR HEMOGLOBIN 26.7 pg (29.0-33.0); MEAN CORPUSCULAR HGB CONC 34.1 g/dl (32.0-37.0); MEAN CORPUSCULAR VOLUME 78.2 fl (82.0-101.0); MEAN PLATELET VOLUME 8.6 fl (7.4-10.4); MONOCYTE # 0.5 10^3/ul (0.3-0.9); MONOCYTES % 3.4 % (0.0-11.0); NEUTROPHILS % 91.8 % (39.0-77.0); PLATELET COUNT 412 10^3/UL (140-415); POSITIVE DIFF @See below; RED BLOOD COUNT 3.26 10^6/ul (4.20-5.40); RED CELL DISTRIBUTION WIDTH 15.4 % (11.5-14.5)
[2017-10-01] MEDS ORDERED: CA GLUCONATE (50 MG/ML) IV SYG IVPB (14:00)
[2017-10-01] MEDS: ALBUMIN HUMAN 5% 500ML INJ CATHETER (14:00)
[2017-10-01] MEDS: predniSONE 20 MG TAB PO (14:03)
[2017-10-01] MEDS: CITRATE DEXTROSE SOLUTION 1,000 ML SOLUTION MC (16:02)
[2017-10-01] MEDS: DEXTROSE 5% IVPB (16:02)
[2017-10-01] MEDS: CALCIUM GLUCONATE IVPB (16:02)
[2017-10-01] MEDS: TRIMETHOPRIM/SULFAMETHOX (DS) TAB PO (18:15)
[2017-10-02] MEDS: ACCU-CHEK XX (02:00)
[2017-10-02 06:00] LABS: MAGNESIUM 1.9 mg/dl (1.7-2.5)
[2017-10-02 06:00] LABS: PHOSPHORUS 8.4 mg/dl (2.5-4.9)
[2017-10-02 06:05] LABS: ALANINE AMINOTRANSFERASE 30 IU/L (13-69); ALBUMIN 3.2 g/dl (3.3-4.9); ALBUMIN/GLOBULIN RATIO 1.77; ALKALINE PHOSPHATASE 24 IU/L (42-121); ANION GAP 16 (8-16); ASPARTATE AMINO TRANSFERASE 13 IU/L (15-46); BLOOD UREA NITROGEN 101 mg/dl (7-20); CALCIUM 8.5 mg/dl (8.4-10.2); CARBON DIOXIDE 27 mmol/L (21-31); CHLORIDE 102 mmol/L (97-110); CREATININE 5.12 mg/dl (0.44-1.00); GLUCOSE 120 mg/dl (70-220); POTASSIUM 3.8 mmol/L (3.5-5.1); SODIUM 141 mmol/L (135-144)
[2017-10-02] MEDS ORDERED: SODIUM CHLORIDE 0.9% 1L BAG IV (07:00)
[2017-10-02] MEDS ORDERED: MANNITOL 25% 50 ML IV (07:00)
[2017-10-02] MEDS ORDERED: ALBUMIN HUMAN 25% 50 ML IV (07:00)
[2017-10-02] MEDS ORDERED: HEPARIN 1000 UNITS/ML 10 ML INJ CATHETER (07:00)
[2017-10-02] MEDS: INSULIN ASPART [NOVOLOG] 3 ML PEN SC ×7 (07:35→21:00)
[2017-10-02] MEDS: CALCIUM ACETATE 667 MG CAP PO ×3 (07:36→18:06)
[2017-10-02] MEDS ORDERED: ALBUMIN HUMAN 5% 0 ML (10:59)
[2017-10-02] MEDS ORDERED: ONDANSETRON 4 MG INJ IV (11:30)
[2017-10-02] MEDS: ALBUMIN HUMAN 5% 500ML INJ CATHETER (11:30)
[2017-10-02] MEDS: CA GLUCONATE (50 MG/ML) IV SYG IVPB (11:38)
[2017-10-02 11:39] LABS: TYPE AND SCREEN 1 1
[2017-10-02] MEDS: DEXTROSE 5% IVPB (11:39)
[2017-10-02] MEDS: CALCIUM GLUCONATE IVPB (11:39)
[2017-10-02] MEDS: CITRATE DEXTROSE SOLUTION 1,000 ML SOLUTION MC (11:40)
[2017-10-02] MEDS: ONDANSETRON 4 MG INJ IV (12:12)
[2017-10-02] MEDS: CALCIUM/VITAMIN D (250/125) TAB PO ×2 (12:15→21:05)
[2017-10-02] MEDS: MULTIVIT/CA CARB/B CMPLX/FA TAB PO (12:15)
[2017-10-02] MEDS: predniSONE 20 MG TAB PO (12:16)
[2017-10-02] MEDS: MANNITOL 25% 50 ML IV ×2 (17:59→18:59)
[2017-10-02] MEDS: HEPARIN 1000 UNITS/ML 10 ML INJ CATHETER (20:19)
[2017-10-02] MEDS ORDERED: FAMOTIDINE 20 MG INJ IV (21:00)
[2017-10-02] MEDS: PANTOPRAZOLE 40 MG INJ IV (21:05)
[2017-10-03] MEDS: ACCU-CHEK XX (02:00)
[2017-10-03 05:12] LABS: ADD MAN DIFF? NO
[2017-10-03 05:21] LABS: BASOPHILS % 0.1 % (0.0-2.0); HEMATOCRIT 22.3 % (37.0-47.0); HEMOGLOBIN 7.6 g/dl (12.0-16.0); LYMPHOCYTES # 0.8 10^3/ul (0.8-2.9); LYMPHOCYTES % 5.3 % (15.0-51.0); MEAN CORPUSCULAR HEMOGLOBIN 27.4 pg (29.0-33.0); MEAN CORPUSCULAR HGB CONC 34.1 g/dl (32.0-37.0); MEAN CORPUSCULAR VOLUME 80.5 fl (82.0-101.0); MONOCYTE # 0.9 10^3/ul (0.3-0.9); MONOCYTES % 5.5 % (0.0-11.0); NEUTROPHIL # 14.1 10^3/ul (1.6-7.5); NEUTROPHILS % 88.2 % (39.0-77.0); PLATELET COUNT 363 10^3/UL (140-415); RED BLOOD COUNT 2.77 10^6/ul (4.20-5.40); RED CELL DISTRIBUTION WIDTH 15.5 % (11.5-14.5)
[2017-10-03 06:00] LABS: ANION GAP 13 (8-16); BLOOD UREA NITROGEN 71 mg/dl (7-20); CALCIUM 8.6 mg/dl (8.4-10.2); CARBON DIOXIDE 29 mmol/L (21-31); CHLORIDE 103 mmol/L (97-110); CREATININE 3.79 mg/dl (0.44-1.00); GLUCOSE 112 mg/dl (70-220); POTASSIUM 3.9 mmol/L (3.5-5.1); SODIUM 141 mmol/L (135-144)
[2017-10-03] MEDS: PANTOPRAZOLE 40 MG INJ IV ×2 (06:21→17:17)
[2017-10-03] MEDS: INSULIN ASPART [NOVOLOG] 3 ML PEN SC ×8 (07:35→21:13)
[2017-10-03] MEDS: TRIMETHOPRIM/SULFAMETHOX (DS) TAB PO (08:26)
[2017-10-03] MEDS: CALCIUM ACETATE 667 MG CAP PO ×3 (08:27→19:06)
[2017-10-03] MEDS: MULTIVIT/CA CARB/B CMPLX/FA TAB PO (08:27)
[2017-10-03] MEDS: predniSONE 20 MG TAB PO (08:27)
[2017-10-03] MEDS: CALCIUM/VITAMIN D (250/125) TAB PO ×2 (08:27→21:07)
[2017-10-03] MEDS: ONDANSETRON 4 MG INJ IV (09:08)
[2017-10-03] MEDS ORDERED: CALCIUM GLUCONATE IVPB (15:54)
[2017-10-03] MEDS ORDERED: CITRATE DEXTROSE SOLUTION 1,000 ML SOLUTION MC (15:54)
[2017-10-03] MEDS ORDERED: ALBUMIN HUMAN 5% 500ML INJ CATHETER (15:54)
[2017-10-03] MEDS ORDERED: DEXTROSE 5% IVPB (15:54)
[2017-10-03] MEDS: ALBUMIN HUMAN 5% 500ML INJ CATHETER (16:25)
[2017-10-03] MEDS: CITRATE DEXTROSE SOLUTION 1,000 ML SOLUTION MC (18:30)
[2017-10-03] MEDS: DEXTROSE 5% IVPB (18:32)
[2017-10-03] MEDS: CALCIUM GLUCONATE IVPB (18:32)
[2017-10-03] MEDS: DIPHENHYDRAMINE 25 MG CAP PO (23:22)
[2017-10-03] MEDS: HYDROCODONE/APAP (5/325) TAB PO (23:23)
[2017-10-04] MEDS: ACCU-CHEK XX (02:41)
[2017-10-04] MEDS: PANTOPRAZOLE 40 MG INJ IV ×2 (06:08→17:16)
[2017-10-04 06:33] LABS: ADD MAN DIFF? NO
[2017-10-04 06:37] LABS: BASOPHILS % 0.1 % (0.0-2.0); EOSINOPHILS % 0.1 % (0.0-7.0); HEMATOCRIT 21.1 % (37.0-47.0); LYMPHOCYTES % 6.2 % (15.0-51.0); MEAN CORPUSCULAR HEMOGLOBIN 26.8 pg (29.0-33.0); MEAN CORPUSCULAR HGB CONC 33.2 g/dl (32.0-37.0); MEAN CORPUSCULAR VOLUME 80.8 fl (82.0-101.0); MEAN PLATELET VOLUME 9.6 fl (7.4-10.4); MONOCYTES % 5.9 % (0.0-11.0); NEUTROPHILS % 86.8 % (39.0-77.0); PLATELET COUNT 317 10^3/UL (140-415); RED BLOOD COUNT 2.61 10^6/ul (4.20-5.40); RED CELL DISTRIBUTION WIDTH 15.8 % (11.5-14.5)
[2017-10-04 06:37] LABS: WHITE BLOOD COUNT 16.2 10^3/ul (4.8-10.8)
[2017-10-04 07:03] LABS: MAGNESIUM 1.9 mg/dl (1.7-2.5)
[2017-10-04 07:03] LABS: PHOSPHORUS 8.2 mg/dl (2.5-4.9)
[2017-10-04 07:04] LABS: ANION GAP 12 (8-16); BLOOD UREA NITROGEN 94 mg/dl (7-20); CALCIUM 8.8 mg/dl (8.4-10.2); CARBON DIOXIDE 28 mmol/L (21-31); CHLORIDE 104 mmol/L (97-110); CREATININE 4.86 mg/dl (0.44-1.00); GLUCOSE 96 mg/dl (70-220); POTASSIUM 4.2 mmol/L (3.5-5.1); SODIUM 140 mmol/L (135-144)
[2017-10-04] MEDS: INSULIN ASPART [NOVOLOG] 3 ML PEN SC ×7 (07:55→21:00)
[2017-10-04] MEDS: predniSONE 20 MG TAB PO (08:50)
[2017-10-04] MEDS: CALCIUM ACETATE 667 MG CAP PO ×3 (08:50→17:18)
[2017-10-04] MEDS: MULTIVIT/CA CARB/B CMPLX/FA TAB PO (08:50)
[2017-10-04] MEDS: CALCIUM/VITAMIN D (250/125) TAB PO ×2 (08:50→21:43)
[2017-10-04] MEDS ORDERED: CA GLUCONATE (50 MG/ML) IV SYG IVPB (10:00)
[2017-10-04] MEDS: AMLODIPINE 10 MG TAB PO (10:09)
[2017-10-04] MEDS: ALBUMIN HUMAN 5% 500ML INJ CATHETER (11:29)
[2017-10-04] MEDS: CALCIUM GLUCONATE IVPB (11:29)
[2017-10-04] MEDS: CITRATE DEXTROSE SOLUTION 1,000 ML SOLUTION MC (11:29)
[2017-10-04] MEDS: DEXTROSE 5% IVPB (11:29)
[2017-10-04] MEDS ORDERED: HEPARIN 1000 UNITS/ML 10 ML INJ CATHETER (11:30)
[2017-10-04] MEDS ORDERED: SODIUM CHLORIDE 0.9% 1L BAG IV (11:30)
[2017-10-04] MEDS ORDERED: ALBUMIN HUMAN 25% 50 ML IV (11:30)
[2017-10-04] MEDS ORDERED: MANNITOL 25% 50 ML IV (11:30)
[2017-10-04] MEDS: ONDANSETRON 4 MG INJ IV ×2 (12:01→18:40)
[2017-10-04] MEDS: SOD FERRIC GLUC COMPLX 125 MG in SOD CHLORIDE 0.9% 100 ML IVPB ×2 (17:00→23:17)
[2017-10-04] MEDS: EPOETIN 3000 UNITS/1 ML INJ (ESRD) SC (22:50)
[2017-10-05] MEDS: ACCU-CHEK XX (02:00)
[2017-10-05 05:59] LABS: ADD MAN DIFF? NO
[2017-10-05] MEDS: PANTOPRAZOLE 40 MG INJ IV ×2 (06:01→17:41)
[2017-10-05 06:34] LABS: ANION GAP 11 (8-16); BLOOD UREA NITROGEN 56 mg/dl (7-20); CARBON DIOXIDE 26 mmol/L (21-31); CHLORIDE 103 mmol/L (97-110); CREATININE 3.32 mg/dl (0.44-1.00); GLUCOSE 83 mg/dl (70-220); POTASSIUM 4.9 mmol/L (3.5-5.1); SODIUM 135 mmol/L (135-144)
[2017-10-05] MEDS: INSULIN ASPART [NOVOLOG] 3 ML PEN SC ×7 (07:55→20:56)
[2017-10-05] MEDS: TRIMETHOPRIM/SULFAMETHOX (DS) TAB PO (08:44)
[2017-10-05] MEDS: MULTIVIT/CA CARB/B CMPLX/FA TAB PO (08:44)
[2017-10-05] MEDS: predniSONE 20 MG TAB PO (08:44)
[2017-10-05] MEDS: AMLODIPINE 10 MG TAB PO (08:44)
[2017-10-05] MEDS: CALCIUM/VITAMIN D (250/125) TAB PO ×2 (08:44→20:57)
[2017-10-05] MEDS: CALCIUM ACETATE 667 MG CAP PO ×3 (08:45→17:41)
[2017-10-05 09:05] LABS: BASOPHILS % 0.1 % (0.0-2.0); EOSINOPHILS # 0.1 10^3/ul (0.0-0.5); EOSINOPHILS % 0.3 % (0.0-7.0); HEMATOCRIT 22.7 % (37.0-47.0); HEMOGLOBIN 7.6 g/dl (12.0-16.0); LYMPHOCYTES # 1.4 10^3/ul (0.8-2.9); LYMPHOCYTES % 8.4 % (15.0-51.0); MEAN CORPUSCULAR HGB CONC 33.5 g/dl (32.0-37.0); MEAN CORPUSCULAR VOLUME 80.5 fl (82.0-101.0); MEAN PLATELET VOLUME 9.6 fl (7.4-10.4); MONOCYTE # 1.1 10^3/ul (0.3-0.9); MONOCYTES % 6.4 % (0.0-11.0); NEUTROPHIL # 14.3 10^3/ul (1.6-7.5); NEUTROPHILS % 84.1 % (39.0-77.0); PLATELET COUNT 312 10^3/UL (140-415); RED BLOOD COUNT 2.82 10^6/ul (4.20-5.40); RED CELL DISTRIBUTION WIDTH 15.3 % (11.5-14.5)
[2017-10-05] MEDS ORDERED: POLYETHYLENE GLYCOL 17 GM PACKET PO (10:30)
[2017-10-05] MEDS ORDERED: CA GLUCONATE (50 MG/ML) IV SYG IVPB (11:00)
[2017-10-05] MEDS: ONDANSETRON 4 MG INJ IV (11:54)
[2017-10-05] MEDS: DOCUSATE SODIUM 100 MG CAP PO ×2 (11:57→20:57)
[2017-10-05] MEDS: CALCIUM GLUCONATE IVPB (12:16)
[2017-10-05] MEDS: DEXTROSE 5% IVPB (12:16)
[2017-10-05] MEDS: CITRATE DEXTROSE SOLUTION 1,000 ML SOLUTION MC (12:17)
[2017-10-05] MEDS: ALBUMIN HUMAN 5% 500ML INJ CATHETER (12:18)
[2017-10-05] MEDS: SOD FERRIC GLUC COMPLX 125 MG in SOD CHLORIDE 0.9% 100 ML IVPB (23:20)
[2017-10-06] MEDS: ACCU-CHEK XX (02:00)
[2017-10-06] MEDS: PANTOPRAZOLE 40 MG INJ IV ×2 (06:06→18:43)
[2017-10-06] MEDS: INSULIN ASPART [NOVOLOG] 3 ML PEN SC ×7 (07:28→20:52)
[2017-10-06 07:44] LABS: ADD MAN DIFF? NO
[2017-10-06 07:53] LABS: BASOPHILS % 0.1 % (0.0-2.0); EOSINOPHILS % 0.1 % (0.0-7.0); HEMATOCRIT 21.7 % (37.0-47.0); HEMOGLOBIN 7.4 g/dl (12.0-16.0); LYMPHOCYTES # 1.4 10^3/ul (0.8-2.9); LYMPHOCYTES % 7.8 % (15.0-51.0); MEAN CORPUSCULAR HEMOGLOBIN 27.7 pg (29.0-33.0); MEAN CORPUSCULAR HGB CONC 34.1 g/dl (32.0-37.0); MEAN CORPUSCULAR VOLUME 81.3 fl (82.0-101.0); MEAN PLATELET VOLUME 9.5 fl (7.4-10.4); MONOCYTE # 1.3 10^3/ul (0.3-0.9); MONOCYTES % 6.9 % (0.0-11.0); NEUTROPHIL # 15.2 10^3/ul (1.6-7.5); NEUTROPHILS % 84.4 % (39.0-77.0); PLATELET COUNT 303 10^3/UL (140-415); RED BLOOD COUNT 2.67 10^6/ul (4.20-5.40); RED CELL DISTRIBUTION WIDTH 15.3 % (11.5-14.5)
[2017-10-06 08:18] LABS: ALANINE AMINOTRANSFERASE 51 IU/L (13-69); ALBUMIN/GLOBULIN RATIO 1.66; ALKALINE PHOSPHATASE 29 IU/L (42-121); ANION GAP 13 (8-16); ASPARTATE AMINO TRANSFERASE 23 IU/L (15-46); BILIRUBIN,INDIRECT 1.7 mg/dl (0-1.1); BILIRUBIN,TOTAL 1.7 mg/dl (0.2-1.3); BLOOD UREA NITROGEN 73 mg/dl (7-20); CALCIUM 8.6 mg/dl (8.4-10.2); CARBON DIOXIDE 26 mmol/L (21-31); CHLORIDE 102 mmol/L (97-110); CREATININE 4.77 mg/dl (0.44-1.00); GLUCOSE 86 mg/dl (70-220); POTASSIUM 3.6 mmol/L (3.5-5.1); SODIUM 137 mmol/L (135-144); TOTAL PROTEIN 4.8 g/dl (6.1-8.1)
[2017-10-06 08:36] LABS: INR 1.21; PROTIME 15.5 Sec (11.9-14.9); PT RATIO 1.2
[2017-10-06] MEDS: CALCIUM/VITAMIN D (250/125) TAB PO ×2 (09:08→21:30)
[2017-10-06] MEDS: DOCUSATE SODIUM 100 MG CAP PO ×2 (09:08→21:30)
[2017-10-06] MEDS: CALCIUM ACETATE 667 MG CAP PO ×3 (09:08→18:42)
[2017-10-06] MEDS: predniSONE 20 MG TAB PO (09:09)
[2017-10-06] MEDS: MULTIVIT/CA CARB/B CMPLX/FA TAB PO (09:09)
[2017-10-06] MEDS: AMLODIPINE 10 MG TAB PO (09:09)
[2017-10-06] MEDS ORDERED: ALBUMIN HUMAN 25% 50 ML IV (10:30)
[2017-10-06] MEDS ORDERED: SODIUM CHLORIDE 0.9% 1L BAG IV (10:30)
[2017-10-06 12:21] LABS: IMMEDIATE SPIN CROSSMATCH 1 2
[2017-10-06] MEDS: ALBUMIN HUMAN 5% 500ML INJ CATHETER (12:30)
[2017-10-06] MEDS: DEXTROSE 5% IVPB (12:30)
[2017-10-06] MEDS: CITRATE DEXTROSE SOLUTION 1,000 ML SOLUTION MC (12:30)
[2017-10-06] MEDS: CALCIUM GLUCONATE IVPB (12:30)
[2017-10-06 16:24] LABS: IMMEDIATE SPIN CROSSMATCH 1
[2017-10-06] MEDS: EPOETIN 4000 UNITS/1 ML INJ (ESRD) SC (18:43)
[2017-10-06] MEDS: HEPARIN 1000 UNITS/ML 10 ML INJ CATHETER (20:35)
[2017-10-06] MEDS: SOD FERRIC GLUC COMPLX 125 MG in SOD CHLORIDE 0.9% 100 ML IVPB (23:57)
[2017-10-07] MEDS: ACCU-CHEK XX (02:00)
[2017-10-07] MEDS: hydrALAzine 20 MG INJ IV (02:36)
[2017-10-07] MEDS: PANTOPRAZOLE 40 MG INJ IV ×2 (05:06→17:52)
[2017-10-07] MEDS: METOPROLOL 25 MG TAB PO (05:06)
[2017-10-07 07:34] LABS: ADD MAN DIFF? NO
[2017-10-07 07:41] LABS: WHITE BLOOD COUNT 16.4 10^3/ul (4.8-10.8)
[2017-10-07 07:41] LABS: BASOPHILS % 0.1 % (0.0-2.0); EOSINOPHILS % 0.1 % (0.0-7.0); HEMOGLOBIN 7.7 g/dl (12.0-16.0); LYMPHOCYTES # 1.9 10^3/ul (0.8-2.9); LYMPHOCYTES % 11.3 % (15.0-51.0); MEAN CORPUSCULAR HEMOGLOBIN 27.1 pg (29.0-33.0); MEAN CORPUSCULAR HGB CONC 33.5 g/dl (32.0-37.0); MEAN PLATELET VOLUME 9.6 fl (7.4-10.4); MONOCYTE # 1.2 10^3/ul (0.3-0.9); MONOCYTES % 7.4 % (0.0-11.0); NEUTROPHIL # 13.2 10^3/ul (1.6-7.5); PLATELET COUNT 269 10^3/UL (140-415); RED BLOOD COUNT 2.84 10^6/ul (4.20-5.40); RED CELL DISTRIBUTION WIDTH 14.8 % (11.5-14.5)
[2017-10-07] MEDS: INSULIN ASPART [NOVOLOG] 3 ML PEN SC ×7 (07:55→21:00)
[2017-10-07 08:03] LABS: ANION GAP 9 (8-16); BLOOD UREA NITROGEN 45 mg/dl (7-20); CALCIUM 8.4 mg/dl (8.4-10.2); CARBON DIOXIDE 31 mmol/L (21-31); CHLORIDE 100 mmol/L (97-110); CREATININE 3.37 mg/dl (0.44-1.00); GLUCOSE 81 mg/dl (70-220); POTASSIUM 3.3 mmol/L (3.5-5.1); SODIUM 137 mmol/L (135-144)
[2017-10-07] MEDS: CALCIUM ACETATE 667 MG CAP PO ×3 (08:18→17:52)
[2017-10-07] MEDS: DOCUSATE SODIUM 100 MG CAP PO ×2 (08:19→21:09)
[2017-10-07] MEDS: MULTIVIT/CA CARB/B CMPLX/FA TAB PO (08:19)
[2017-10-07] MEDS: predniSONE 20 MG TAB PO (08:19)
[2017-10-07] MEDS: CALCIUM/VITAMIN D (250/125) TAB PO ×2 (08:19→21:09)
[2017-10-07] MEDS: AMLODIPINE 10 MG TAB PO (08:21)
[2017-10-07] MEDS: TRIMETHOPRIM/SULFAMETHOX (DS) TAB PO (11:08)
[2017-10-07] MEDS: ALBUMIN HUMAN 5% 500ML INJ CATHETER (13:19)
[2017-10-07] MEDS ORDERED: CA GLUCONATE (50 MG/ML) IV SYG IVPB (13:30)
[2017-10-07] MEDS: FUROSEMIDE 20 MG TAB PO (16:19)
[2017-10-07] MEDS: POTASSIUM CHLORIDE (SR) 20 MEQ TAB PO (16:20)
[2017-10-07] MEDS: ONDANSETRON 4 MG INJ IV (16:41)
[2017-10-07] MEDS: CITRATE DEXTROSE SOLUTION 1,000 ML SOLUTION MC (18:58)
[2017-10-07] MEDS: DEXTROSE 5% IVPB (18:59)
[2017-10-07] MEDS: CALCIUM GLUCONATE IVPB (18:59)
[2017-10-08] MEDS: ACCU-CHEK XX (02:00)
[2017-10-08] MEDS: PANTOPRAZOLE 40 MG INJ IV ×2 (06:17→17:51)
[2017-10-08 06:40] LABS: ADD MAN DIFF? NO
[2017-10-08 06:51] LABS: WHITE BLOOD COUNT 15.1 10^3/ul (4.8-10.8)
[2017-10-08 06:51] LABS: BASOPHILS % 0.1 % (0.0-2.0); EOSINOPHILS % 0.1 % (0.0-7.0); HEMATOCRIT 22.5 % (37.0-47.0); HEMOGLOBIN 7.5 g/dl (12.0-16.0); LYMPHOCYTES # 1.6 10^3/ul (0.8-2.9); LYMPHOCYTES % 10.3 % (15.0-51.0); MEAN CORPUSCULAR HEMOGLOBIN 27.5 pg (29.0-33.0); MEAN CORPUSCULAR HGB CONC 33.3 g/dl (32.0-37.0); MEAN CORPUSCULAR VOLUME 82.4 fl (82.0-101.0); MEAN PLATELET VOLUME 9.8 fl (7.4-10.4); MONOCYTE # 1.2 10^3/ul (0.3-0.9); MONOCYTES % 7.9 % (0.0-11.0); NEUTROPHIL # 12.2 10^3/ul (1.6-7.5); NEUTROPHILS % 80.6 % (39.0-77.0); PLATELET COUNT 252 10^3/UL (140-415); RED BLOOD COUNT 2.73 10^6/ul (4.20-5.40); RED CELL DISTRIBUTION WIDTH 15.2 % (11.5-14.5)
[2017-10-08 07:51] LABS: ANION GAP 12 (8-16); BLOOD UREA NITROGEN 61 mg/dl (7-20); CALCIUM 8.7 mg/dl (8.4-10.2); CARBON DIOXIDE 28 mmol/L (21-31); CHLORIDE 102 mmol/L (97-110); CREATININE 5.04 mg/dl (0.44-1.00); GLUCOSE 87 mg/dl (70-220); POTASSIUM 3.9 mmol/L (3.5-5.1); SODIUM 138 mmol/L (135-144)
[2017-10-08] MEDS: INSULIN ASPART [NOVOLOG] 3 ML PEN SC ×7 (07:55→20:37)
[2017-10-08] MEDS: MULTIVIT/CA CARB/B CMPLX/FA TAB PO (08:36)
[2017-10-08] MEDS: CALCIUM/VITAMIN D (250/125) TAB PO ×2 (08:36→22:40)
[2017-10-08] MEDS: CALCIUM ACETATE 667 MG CAP PO ×3 (08:36→17:51)
[2017-10-08] MEDS: DOCUSATE SODIUM 100 MG CAP PO ×2 (08:36→22:40)
[2017-10-08] MEDS: predniSONE 20 MG TAB PO (08:37)
[2017-10-08] MEDS: AMLODIPINE 10 MG TAB PO (08:37)
[2017-10-08] MEDS ORDERED: CA GLUCONATE (50 MG/ML) IV SYG IVPB (08:57)
[2017-10-08] MEDS: ALBUMIN HUMAN 5% 500ML INJ CATHETER (09:00)
[2017-10-08] MEDS: ONDANSETRON 4 MG INJ IV ×2 (10:55→18:41)
[2017-10-08] MEDS: CALCIUM GLUCONATE IVPB (13:08)
[2017-10-08] MEDS: DEXTROSE 5% IVPB (13:08)
[2017-10-08] MEDS: CITRATE DEXTROSE SOLUTION 1,000 ML SOLUTION MC (13:08)
[2017-10-08] MEDS ORDERED: SOD CHLORIDE 0.9% 1,000 ML IV (16:50)
[2017-10-08] MEDS: EPOETIN 4000 UNITS/1 ML INJ (ESRD) SC (17:52)
[2017-10-08] MEDS: HEPARIN 1000 UNITS/ML 10 ML INJ CATHETER (22:31)
[2017-10-09] MEDS: ACCU-CHEK XX (01:22)
[2017-10-09] MEDS: PANTOPRAZOLE 40 MG INJ IV ×2 (06:13→18:20)
[2017-10-09 07:24] LABS: ADD MAN DIFF? NO
[2017-10-09 07:26] LABS: BASOPHILS % 0.1 % (0.0-2.0); EOSINOPHILS % 0.3 % (0.0-7.0); HEMATOCRIT 21.9 % (37.0-47.0); HEMOGLOBIN 7.2 g/dl (12.0-16.0); LYMPHOCYTES % 12.9 % (15.0-51.0); MEAN CORPUSCULAR HEMOGLOBIN 27.9 pg (29.0-33.0); MEAN CORPUSCULAR HGB CONC 32.9 g/dl (32.0-37.0); MEAN CORPUSCULAR VOLUME 84.9 fl (82.0-101.0); MEAN PLATELET VOLUME 9.5 fl (7.4-10.4); MONOCYTE # 1.1 10^3/ul (0.3-0.9); MONOCYTES % 7.4 % (0.0-11.0); NEUTROPHIL # 11.9 10^3/ul (1.6-7.5); NEUTROPHILS % 78.2 % (39.0-77.0); PLATELET COUNT 265 10^3/UL (140-415); RED BLOOD COUNT 2.58 10^6/ul (4.20-5.40); RED CELL DISTRIBUTION WIDTH 15.5 % (11.5-14.5)
[2017-10-09 07:26] LABS: WHITE BLOOD COUNT 15.2 10^3/ul (4.8-10.8)
[2017-10-09 07:37] LABS: RETICULOCYTE RBC 2.58
[2017-10-09 07:37] LABS: RETICULOCYTE COUNT # 0.067 X10^6 (0.020-0.110); RETICULOCYTE COUNT % 2.6 % (0.5-1.5)
[2017-10-09] MEDS: INSULIN ASPART [NOVOLOG] 3 ML PEN SC ×7 (07:48→21:00)
[2017-10-09 08:02] LABS: ANION GAP 10 (8-16); BLOOD UREA NITROGEN 35 mg/dl (7-20); CALCIUM 8.5 mg/dl (8.4-10.2); CARBON DIOXIDE 30 mmol/L (21-31); CHLORIDE 103 mmol/L (97-110); GLUCOSE 80 mg/dl (70-220); POTASSIUM 3.6 mmol/L (3.5-5.1); SODIUM 139 mmol/L (135-144)
[2017-10-09 08:03] LABS: LACTATE DEHYDROGENASE 488 IU/L (313-618)
[2017-10-09] MEDS: CALCIUM ACETATE 667 MG CAP PO ×3 (08:19→18:20)
[2017-10-09] MEDS: MULTIVIT/CA CARB/B CMPLX/FA TAB PO (08:19)
[2017-10-09] MEDS: CALCIUM/VITAMIN D (250/125) TAB PO ×2 (08:19→21:44)
[2017-10-09] MEDS: predniSONE 20 MG TAB PO (08:19)
[2017-10-09] MEDS: AMLODIPINE 10 MG TAB PO (08:19)
[2017-10-09] MEDS: DOCUSATE SODIUM 100 MG CAP PO ×2 (08:20→21:45)
[2017-10-10] MEDS: ACCU-CHEK XX (02:00)
[2017-10-10] MEDS: PANTOPRAZOLE 40 MG INJ IV ×2 (06:34→17:32)
[2017-10-10 07:50] LABS: ADD MAN DIFF? NO
[2017-10-10] MEDS: INSULIN ASPART [NOVOLOG] 3 ML PEN SC ×7 (07:55→21:00)
[2017-10-10] MEDS: CALCIUM ACETATE 667 MG CAP PO ×3 (07:58→17:32)
[2017-10-10 08:01] LABS: BASOPHILS % 0.1 % (0.0-2.0); EOSINOPHILS % 0.2 % (0.0-7.0); HEMATOCRIT 22.2 % (37.0-47.0); HEMOGLOBIN 7.2 g/dl (12.0-16.0); LYMPHOCYTES # 1.7 10^3/ul (0.8-2.9); MEAN CORPUSCULAR HEMOGLOBIN 27.9 pg (29.0-33.0); MEAN CORPUSCULAR HGB CONC 32.4 g/dl (32.0-37.0); MEAN PLATELET VOLUME 9.8 fl (7.4-10.4); MONOCYTES % 5.9 % (0.0-11.0); NEUTROPHIL # 14.3 10^3/ul (1.6-7.5); PLATELET COUNT 276 10^3/UL (140-415); RED BLOOD COUNT 2.58 10^6/ul (4.20-5.40); RED CELL DISTRIBUTION WIDTH 16.6 % (11.5-14.5)
[2017-10-10 08:01] LABS: WHITE BLOOD COUNT 17.3 10^3/ul (4.8-10.8)
[2017-10-10 08:24] LABS: ANION GAP 10 (8-16); BLOOD UREA NITROGEN 58 mg/dl (7-20); CALCIUM 8.7 mg/dl (8.4-10.2); CARBON DIOXIDE 30 mmol/L (21-31); CHLORIDE 102 mmol/L (97-110); CREATININE 5.37 mg/dl (0.44-1.00); GLUCOSE 85 mg/dl (70-220); MAGNESIUM 1.9 mg/dl (1.7-2.5); PHOSPHORUS 4.1 mg/dl (2.5-4.9); POTASSIUM 3.9 mmol/L (3.5-5.1); SODIUM 138 mmol/L (135-144)
[2017-10-10] MEDS: MULTIVIT/CA CARB/B CMPLX/FA TAB PO (09:17)
[2017-10-10] MEDS: CALCIUM/VITAMIN D (250/125) TAB PO ×2 (09:17→23:50)
[2017-10-10] MEDS: DOCUSATE SODIUM 100 MG CAP PO ×2 (09:17→21:00)
[2017-10-10] MEDS: AMLODIPINE 10 MG TAB PO (09:18)
[2017-10-10] MEDS: predniSONE 20 MG TAB PO (09:18)
[2017-10-10] MEDS: TRIMETHOPRIM/SULFAMETHOX (DS) TAB PO (09:31)
[2017-10-10] MEDS ORDERED: CA GLUCONATE (50 MG/ML) IV SYG IVPB (10:13)
[2017-10-10] MEDS: ONDANSETRON 4 MG INJ IV ×2 (11:28→20:52)
[2017-10-10] MEDS: ALBUMIN HUMAN 5% 500ML INJ CATHETER (11:40)
[2017-10-10] MEDS: CITRATE DEXTROSE SOLUTION 1,000 ML SOLUTION MC (11:44)
[2017-10-10] MEDS: CALCIUM GLUCONATE IVPB (11:44)
[2017-10-10] MEDS: DEXTROSE 5% IVPB (11:44)
[2017-10-10 11:45] LABS: TYPE AND SCREEN 1 1
[2017-10-10] MEDS ORDERED: SODIUM CHLORIDE 0.9% 1L BAG IV (12:00)
[2017-10-10] MEDS ORDERED: ALBUMIN HUMAN 25% 100 ML IV (12:00)
[2017-10-10] MEDS: FUROSEMIDE 40 MG INJ IV (14:20)
[2017-10-10] MEDS: HEPARIN 1000 UNITS/ML 10 ML INJ CATHETER (23:33)
[2017-10-11] MEDS: ACCU-CHEK XX (02:00)
[2017-10-11] MEDS: PANTOPRAZOLE 40 MG INJ IV ×2 (05:29→18:04)
[2017-10-11] MEDS ORDERED: MIDAZOLAM 1 MG/ML 2 ML INJ (08:19)
[2017-10-11] MEDS ORDERED: LIDOCAINE 1% (MDV) 10 ML INJ (08:19)
[2017-10-11] MEDS ORDERED: FENTAnyl 50 MCG/ML VIAL (08:19)
[2017-10-11] MEDS ORDERED: HEPARIN 1000 UNITS/ML 10 ML INJ (08:20)
[2017-10-11] MEDS ORDERED: HEPARIN 1000 UNITS/NS (A-LINE) 1,000 ML (08:20)
[2017-10-11] MEDS: HYDROCODONE/APAP (5/325) TAB PO (10:15)
[2017-10-11] MEDS: DOCUSATE SODIUM 100 MG CAP PO ×2 (10:21→20:37)
[2017-10-11] MEDS: CALCIUM ACETATE 667 MG CAP PO ×3 (10:21→18:04)
[2017-10-11] MEDS: CALCIUM/VITAMIN D (250/125) TAB PO ×2 (10:21→20:37)
[2017-10-11] MEDS: AMLODIPINE 10 MG TAB PO (10:21)
[2017-10-11] MEDS: MULTIVIT/CA CARB/B CMPLX/FA TAB PO (10:21)
[2017-10-11] MEDS: predniSONE 20 MG TAB PO (10:22)
[2017-10-11] MEDS: INSULIN ASPART [NOVOLOG] 3 ML PEN SC ×7 (10:32→20:46)
[2017-10-11 10:47] LABS: ADD MAN DIFF? NO
[2017-10-11 10:48] LABS: ADD MAN DIFF? NO
[2017-10-11 10:51] LABS: BASOPHILS % 0.1 % (0.0-2.0); EOSINOPHILS # 0.1 10^3/ul (0.0-0.5); EOSINOPHILS % 0.5 % (0.0-7.0); HEMATOCRIT 22.3 % (37.0-47.0); HEMOGLOBIN 7.1 g/dl (12.0-16.0); LYMPHOCYTES # 1.9 10^3/ul (0.8-2.9); MEAN CORPUSCULAR HEMOGLOBIN 27.7 pg (29.0-33.0); MEAN CORPUSCULAR HGB CONC 31.8 g/dl (32.0-37.0); MEAN CORPUSCULAR VOLUME 87.1 fl (82.0-101.0); MEAN PLATELET VOLUME 8.9 fl (7.4-10.4); MONOCYTE # 0.9 10^3/ul (0.3-0.9); MONOCYTES % 6.7 % (0.0-11.0); NEUTROPHIL # 9.7 10^3/ul (1.6-7.5); NEUTROPHILS % 76.9 % (39.0-77.0); PLATELET COUNT 211 10^3/UL (140-415); RED BLOOD COUNT 2.56 10^6/ul (4.20-5.40); RED CELL DISTRIBUTION WIDTH 17.2 % (11.5-14.5)
[2017-10-11 10:51] LABS: WHITE BLOOD COUNT 12.6 10^3/ul (4.8-10.8)
[2017-10-11 10:52] LABS: WHITE BLOOD COUNT 13.5 10^3/ul (4.8-10.8)
[2017-10-11 10:52] LABS: BASOPHILS % 0.1 % (0.0-2.0); EOSINOPHILS # 0.1 10^3/ul (0.0-0.5); EOSINOPHILS % 0.7 % (0.0-7.0); HEMATOCRIT 21.8 % (37.0-47.0); HEMOGLOBIN 7.1 g/dl (12.0-16.0); LYMPHOCYTES # 2.1 10^3/ul (0.8-2.9); LYMPHOCYTES % 15.7 % (15.0-51.0); MEAN CORPUSCULAR HEMOGLOBIN 28.3 pg (29.0-33.0); MEAN CORPUSCULAR HGB CONC 32.6 g/dl (32.0-37.0); MEAN CORPUSCULAR VOLUME 86.9 fl (82.0-101.0); MEAN PLATELET VOLUME 8.9 fl (7.4-10.4); MONOCYTE # 0.9 10^3/ul (0.3-0.9); MONOCYTES % 6.5 % (0.0-11.0); NEUTROPHIL # 10.3 10^3/ul (1.6-7.5); NEUTROPHILS % 76.1 % (39.0-77.0); PLATELET COUNT 207 10^3/UL (140-415); RED BLOOD COUNT 2.51 10^6/ul (4.20-5.40); RED CELL DISTRIBUTION WIDTH 17.2 % (11.5-14.5)
[2017-10-11 11:19] LABS: ANION GAP 10 (8-16); BLOOD UREA NITROGEN 50 mg/dl (7-20); CALCIUM 8.3 mg/dl (8.4-10.2); CARBON DIOXIDE 32 mmol/L (21-31); CHLORIDE 99 mmol/L (97-110); CREATININE 4.77 mg/dl (0.44-1.00); GLUCOSE 82 mg/dl (70-220); POTASSIUM 4.1 mmol/L (3.5-5.1); SODIUM 137 mmol/L (135-144)
[2017-10-11] MEDS ORDERED: AL HYDROX/MG HYDROX/SIMETH 30 ML CUP PO (11:30)
[2017-10-11 15:42] LABS: ALBUMIN 2.9 g/dl (3.3-4.9); ANION GAP 10 (8-16); BLOOD UREA NITROGEN 50 mg/dl (7-20); CALCIUM 8.4 mg/dl (8.4-10.2); CARBON DIOXIDE 31 mmol/L (21-31); CHLORIDE 98 mmol/L (97-110); CREATININE 4.83 mg/dl (0.44-1.00); GLUCOSE 82 mg/dl (70-220); MAGNESIUM 1.8 mg/dl (1.7-2.5); PHOSPHORUS 3.6 mg/dl (2.5-4.9); POTASSIUM 4.1 mmol/L (3.5-5.1); SODIUM 135 mmol/L (135-144)
[2017-10-11] MEDS: EPOETIN 4000 UNITS/1 ML INJ (ESRD) SC (16:35)
[2017-10-11] MEDS: ALBUMIN HUMAN 5% 500ML INJ CATHETER (17:30)
[2017-10-11] MEDS: CALCIUM GLUCONATE IVPB (17:30)
[2017-10-11] MEDS: DEXTROSE 5% IVPB (17:30)
[2017-10-11] MEDS: CITRATE DEXTROSE SOLUTION 1,000 ML SOLUTION MC (17:30)
[2017-10-11] MEDS: ACETAMINOPHEN 325 MG TAB PO (18:35)
[2017-10-11] MEDS: CYCLOPHOSPHAMIDE 25 MG PO (20:47)
[2017-10-11] MEDS: ONDANSETRON 4 MG INJ IV (20:53)
[2017-10-12 05:27] LABS: ADD MAN DIFF? NO
[2017-10-12 05:34] LABS: WHITE BLOOD COUNT 13.5 10^3/ul (4.8-10.8)
[2017-10-12 05:34] LABS: ABNORMAL IP MESSAGE 1; BASOPHILS % 0.1 % (0.0-2.0); HEMATOCRIT 20.7 % (37.0-47.0); LYMPHOCYTES # 0.8 10^3/ul (0.8-2.9); LYMPHOCYTES % 6.1 % (15.0-51.0); MEAN CORPUSCULAR HEMOGLOBIN 28.5 pg (29.0-33.0); MEAN CORPUSCULAR HGB CONC 32.9 g/dl (32.0-37.0); MEAN CORPUSCULAR VOLUME 86.6 fl (82.0-101.0); MEAN PLATELET VOLUME 9.6 fl (7.4-10.4); MONOCYTE # 0.5 10^3/ul (0.3-0.9); MONOCYTES % 3.6 % (0.0-11.0); NEUTROPHIL # 12.1 10^3/ul (1.6-7.5); NEUTROPHILS % 89.4 % (39.0-77.0); PLATELET COUNT 189 10^3/UL (140-415); RED BLOOD COUNT 2.39 10^6/ul (4.20-5.40); RED CELL DISTRIBUTION WIDTH 17.2 % (11.5-14.5)
[2017-10-12 05:47] LABS: HEMOGLOBIN 6.8 g/dl (12.0-16.0); POSITIVE DIFF @See below
[2017-10-12 06:08] LABS: ALBUMIN 3.2 g/dl (3.3-4.9); ANION GAP 16 (8-16); BLOOD UREA NITROGEN 71 mg/dl (7-20); CARBON DIOXIDE 29 mmol/L (21-31); CHLORIDE 100 mmol/L (97-110); CREATININE 5.73 mg/dl (0.44-1.00); GLUCOSE 92 mg/dl (70-220); MAGNESIUM 1.8 mg/dl (1.7-2.5); PHOSPHORUS 4.8 mg/dl (2.5-4.9); POTASSIUM 5.1 mmol/L (3.5-5.1); SODIUM 140 mmol/L (135-144)
[2017-10-12] MEDS: PANTOPRAZOLE 40 MG INJ IV ×2 (06:20→17:50)
[2017-10-12 06:25] LABS: ANION GAP 16 (8-16); BLOOD UREA NITROGEN 72 mg/dl (7-20); CALCIUM 8.9 mg/dl (8.4-10.2); CARBON DIOXIDE 29 mmol/L (21-31); CHLORIDE 99 mmol/L (97-110); CREATININE 5.79 mg/dl (0.44-1.00); GLUCOSE 95 mg/dl (70-220); SODIUM 139 mmol/L (135-144)
[2017-10-12] MEDS: INSULIN ASPART [NOVOLOG] 3 ML PEN SC ×7 (07:50→21:00)
[2017-10-12] MEDS: CALCIUM ACETATE 667 MG CAP PO ×3 (08:39→17:50)
[2017-10-12] MEDS: CYCLOPHOSPHAMIDE 25 MG PO ×2 (08:41→23:30)
[2017-10-12] MEDS: MULTIVIT/CA CARB/B CMPLX/FA TAB PO (08:47)
[2017-10-12] MEDS: DOCUSATE SODIUM 100 MG CAP PO ×2 (08:47→23:27)
[2017-10-12] MEDS: AMLODIPINE 10 MG TAB PO (08:47)
[2017-10-12] MEDS: predniSONE 20 MG TAB PO (08:48)
[2017-10-12] MEDS: CALCIUM/VITAMIN D (250/125) TAB PO ×2 (08:48→23:28)
[2017-10-12] MEDS: ACETAMINOPHEN 325 MG TAB PO (08:49)
[2017-10-12] MEDS: TRIMETHOPRIM/SULFAMETHOX (DS) TAB PO (08:54)
[2017-10-12] MEDS ORDERED: CA GLUCONATE (50 MG/ML) IV SYG IVPB (10:30)
[2017-10-12] MEDS: ALBUMIN HUMAN 5% 500ML INJ CATHETER (11:40)
[2017-10-12] MEDS: CITRATE DEXTROSE SOLUTION 1,000 ML SOLUTION MC (11:40)
[2017-10-12] MEDS: CALCIUM GLUCONATE IVPB (11:42)
[2017-10-12] MEDS: DEXTROSE 5% IVPB (11:42)
[2017-10-12] MEDS ORDERED: SODIUM CHLORIDE 0.9% 1L BAG IV (12:30)
[2017-10-12] MEDS ORDERED: ALBUMIN HUMAN 25% 50 ML IV (12:30)
[2017-10-12] MEDS: ONDANSETRON 4 MG INJ IV ×2 (13:41→17:51)
[2017-10-12 20:02] LABS: IMMEDIATE SPIN CROSSMATCH 1
[2017-10-12] MEDS: HEPARIN 1000 UNITS/ML 10 ML INJ CATHETER (22:07)
[2017-10-13] MEDS: PANTOPRAZOLE 40 MG INJ IV ×2 (05:32→18:02)
[2017-10-13 05:34] LABS: ADD MAN DIFF? NO
[2017-10-13 05:36] LABS: BASOPHILS % 0.1 % (0.0-2.0); EOSINOPHILS % 0.2 % (0.0-7.0); HEMATOCRIT 22.6 % (37.0-47.0); HEMOGLOBIN 7.4 g/dl (12.0-16.0); LYMPHOCYTES # 1.3 10^3/ul (0.8-2.9); LYMPHOCYTES % 10.3 % (15.0-51.0); MEAN CORPUSCULAR HEMOGLOBIN 28.6 pg (29.0-33.0); MEAN CORPUSCULAR HGB CONC 32.7 g/dl (32.0-37.0); MEAN CORPUSCULAR VOLUME 87.3 fl (82.0-101.0); MEAN PLATELET VOLUME 9.4 fl (7.4-10.4); MONOCYTE # 0.8 10^3/ul (0.3-0.9); NEUTROPHIL # 10.8 10^3/ul (1.6-7.5); NEUTROPHILS % 82.9 % (39.0-77.0); PLATELET COUNT 152 10^3/UL (140-415); RED BLOOD COUNT 2.59 10^6/ul (4.20-5.40); RED CELL DISTRIBUTION WIDTH 17.2 % (11.5-14.5)
[2017-10-13 05:36] LABS: WHITE BLOOD COUNT 13.1 10^3/ul (4.8-10.8)
[2017-10-13] MEDS: ACETAMINOPHEN 325 MG TAB PO ×2 (05:37→20:25)
[2017-10-13 06:01] LABS: ALBUMIN 3.1 g/dl (3.3-4.9); ANION GAP 11 (8-16); BLOOD UREA NITROGEN 44 mg/dl (7-20); CALCIUM 8.6 mg/dl (8.4-10.2); CARBON DIOXIDE 30 mmol/L (21-31); CHLORIDE 104 mmol/L (97-110); CREATININE 4.11 mg/dl (0.44-1.00); GLUCOSE 83 mg/dl (70-220); MAGNESIUM 1.9 mg/dl (1.7-2.5); PHOSPHORUS 3.6 mg/dl (2.5-4.9); POTASSIUM 4.1 mmol/L (3.5-5.1); SODIUM 141 mmol/L (135-144)
[2017-10-13] MEDS: predniSONE 20 MG TAB PO (08:40)
[2017-10-13] MEDS: MULTIVIT/CA CARB/B CMPLX/FA TAB PO (08:40)
[2017-10-13] MEDS: AMLODIPINE 10 MG TAB PO (08:41)
[2017-10-13] MEDS: CALCIUM ACETATE 667 MG CAP PO ×3 (08:41→18:00)
[2017-10-13] MEDS: DOCUSATE SODIUM 100 MG CAP PO ×2 (08:41→20:27)
[2017-10-13] MEDS: FUROSEMIDE 40 MG INJ IV (08:42)
[2017-10-13] MEDS: CALCIUM/VITAMIN D (250/125) TAB PO ×2 (08:42→20:27)
[2017-10-13] MEDS: INSULIN ASPART [NOVOLOG] 3 ML PEN SC ×7 (08:45→21:00)
[2017-10-13] MEDS: CYCLOPHOSPHAMIDE 25 MG PO ×2 (08:47→20:32)
[2017-10-13] MEDS ORDERED: CYCLOPHOSPHAMIDE 25 MG PO (09:00)
[2017-10-13] MEDS ORDERED: DIPHENHYDRAMINE 50 MG INJ IV (10:30)
[2017-10-13] MEDS: ALBUMIN HUMAN 5% 500ML INJ CATHETER (11:00)
[2017-10-13 11:53] LABS: IMMEDIATE SPIN CROSSMATCH 1 1
[2017-10-13] MEDS: ONDANSETRON 4 MG INJ IV (12:09)
[2017-10-13] MEDS: CITRATE DEXTROSE SOLUTION 1,000 ML SOLUTION MC (13:21)
[2017-10-13] MEDS: CALCIUM GLUCONATE IVPB (13:22)
[2017-10-13] MEDS: DEXTROSE IVPB (13:22)
[2017-10-13] MEDS: NACL IVPB (13:22)
[2017-10-13] MEDS ORDERED: HEPARIN 1000 UNITS/ML 10 ML INJ CATHETER (15:30)
[2017-10-13] MEDS ORDERED: SODIUM CHLORIDE 0.9% 1L BAG IV (15:30)
[2017-10-13] MEDS: EPOETIN 4000 UNITS/1 ML INJ (ESRD) SC (18:02)
[2017-10-14] MEDS: PANTOPRAZOLE 40 MG INJ IV ×2 (05:26→17:58)
[2017-10-14] MEDS: CALCIUM ACETATE 667 MG CAP PO ×3 (07:50→17:58)
[2017-10-14] MEDS: INSULIN ASPART [NOVOLOG] 3 ML PEN SC ×7 (07:50→21:00)
[2017-10-14] MEDS: ONDANSETRON 4 MG INJ IV (09:37)
[2017-10-14 09:45] LABS: ADD MAN DIFF? NO
[2017-10-14 09:47] LABS: WHITE BLOOD COUNT 13.6 10^3/ul (4.8-10.8)
[2017-10-14 09:47] LABS: BASOPHILS % 0.1 % (0.0-2.0); EOSINOPHILS # 0.1 10^3/ul (0.0-0.5); EOSINOPHILS % 0.5 % (0.0-7.0); HEMATOCRIT 21.5 % (37.0-47.0); LYMPHOCYTES # 1.7 10^3/ul (0.8-2.9); LYMPHOCYTES % 12.5 % (15.0-51.0); MEAN CORPUSCULAR HEMOGLOBIN 28.7 pg (29.0-33.0); MEAN CORPUSCULAR HGB CONC 32.6 g/dl (32.0-37.0); MEAN CORPUSCULAR VOLUME 88.1 fl (82.0-101.0); MEAN PLATELET VOLUME 8.7 fl (7.4-10.4); MONOCYTE # 0.6 10^3/ul (0.3-0.9); MONOCYTES % 4.3 % (0.0-11.0); NEUTROPHIL # 11.1 10^3/ul (1.6-7.5); NEUTROPHILS % 81.8 % (39.0-77.0); PLATELET COUNT 110 10^3/UL (140-415); RED BLOOD COUNT 2.44 10^6/ul (4.20-5.40); RED CELL DISTRIBUTION WIDTH 17.5 % (11.5-14.5)
[2017-10-14 10:04] LABS: ALBUMIN 3.4 g/dl (3.3-4.9); ANION GAP 14 (8-16); BLOOD UREA NITROGEN 64 mg/dl (7-20); CALCIUM 8.9 mg/dl (8.4-10.2); CARBON DIOXIDE 28 mmol/L (21-31); CHLORIDE 103 mmol/L (97-110); CREATININE 5.86 mg/dl (0.44-1.00); GLUCOSE 98 mg/dl (70-220); MAGNESIUM 1.7 mg/dl (1.7-2.5); POTASSIUM 4.1 mmol/L (3.5-5.1); SODIUM 141 mmol/L (135-144)
[2017-10-14] MEDS ORDERED: ACETAMINOPHEN 500 MG TAB PO ×2 (12:00→17:00)
[2017-10-14] MEDS: CYCLOPHOSPHAMIDE 25 MG PO ×2 (13:02→21:54)
[2017-10-14] MEDS: MULTIVIT/CA CARB/B CMPLX/FA TAB PO (13:03)
[2017-10-14] MEDS: CALCIUM/VITAMIN D (250/125) TAB PO ×2 (13:03→21:57)
[2017-10-14] MEDS: predniSONE 20 MG TAB PO (13:03)
[2017-10-14] MEDS: DOCUSATE SODIUM 100 MG CAP PO ×2 (13:04→21:00)
[2017-10-14] MEDS: FUROSEMIDE 40 MG INJ IV ×2 (13:04→18:03)
[2017-10-14] MEDS: AMLODIPINE 10 MG TAB PO (13:04)
[2017-10-14] MEDS: HEPARIN 1000 UNITS/ML 10 ML INJ CATHETER (13:54)
[2017-10-14] MEDS: TRIMETHOPRIM/SULFAMETHOX (DS) TAB PO (14:22)
[2017-10-14] MEDS: ACETAMINOPHEN 325 MG TAB PO (14:31)
[2017-10-14] MEDS: LORAZEPAM 2 MG INJ IV (14:32)
[2017-10-14] MEDS ORDERED: DIPHENHYDRAMINE 50 MG CAP PO (17:00)
[2017-10-14] MEDS ORDERED: EPINEPHrine 1 MG INJ IM (17:00)
[2017-10-14] MEDS ORDERED: MEPERIDINE 50 MG INJ IV (17:00)
[2017-10-14] MEDS ORDERED: ACETAMINOPHEN 325 MG TAB PO (17:00)
[2017-10-14 21:27] LABS: ADD MAN DIFF? NO
[2017-10-14 21:30] LABS: ABNORMAL IP MESSAGE 1; EOSINOPHILS % 0.1 % (0.0-7.0); HEMATOCRIT 19.8 % (37.0-47.0); IMMATURE GRANS #M 0.05 10^3/ul; IMMATURE GRANS % (M) 0.6 %; LYMPHOCYTES # 0.4 10^3/ul (0.8-2.9); LYMPHOCYTES % 4.4 % (15.0-51.0); MEAN CORPUSCULAR HEMOGLOBIN 28.9 pg (29.0-33.0); MEAN CORPUSCULAR HGB CONC 32.8 g/dl (32.0-37.0); MEAN PLATELET VOLUME 9.3 fl (7.4-10.4); MONOCYTE # 0.1 10^3/ul (0.3-0.9); NEUTROPHIL # 8.3 10^3/ul (1.6-7.5); NEUTROPHILS % 93.9 % (39.0-77.0); PLATELET COUNT 97 10^3/UL (140-415); RED BLOOD COUNT 2.25 10^6/ul (4.20-5.40); RED CELL DISTRIBUTION WIDTH 17.5 % (11.5-14.5)
[2017-10-14 21:53] LABS: ANION GAP 14 (8-16); BLOOD UREA NITROGEN 42 mg/dl (7-20); CALCIUM 8.5 mg/dl (8.4-10.2); CARBON DIOXIDE 30 mmol/L (21-31); CHLORIDE 101 mmol/L (97-110); CREATININE 3.92 mg/dl (0.44-1.00); GLUCOSE 165 mg/dl (70-220); POTASSIUM 4.8 mmol/L (3.5-5.1); SODIUM 140 mmol/L (135-144)
[2017-10-14 21:58] LABS: HEMOGLOBIN 6.5 g/dl (12.0-16.0); POSITIVE DIFF @See below
[2017-10-14 21:59] LABS: WHITE BLOOD COUNT 8.9 10^3/ul (4.8-10.8)
[2017-10-15] MEDS ORDERED: FUROSEMIDE 100 MG INJ IV (06:00)
[2017-10-15] MEDS: PANTOPRAZOLE 40 MG INJ IV ×2 (06:54→17:50)
[2017-10-15] MEDS: FUROSEMIDE 40 MG INJ IV ×3 (06:57→17:50)
[2017-10-15] MEDS: INSULIN ASPART [NOVOLOG] 3 ML PEN SC ×7 (07:50→21:00)
[2017-10-15] MEDS: CALCIUM ACETATE 667 MG CAP PO ×3 (07:50→17:49)
[2017-10-15 10:32] LABS: IMMEDIATE SPIN CROSSMATCH 1 2
[2017-10-15] MEDS: ONDANSETRON 4 MG INJ IV (13:41)
[2017-10-15] MEDS: HEPARIN 1000 UNITS/ML 10 ML INJ CATHETER (13:46)
[2017-10-15] MEDS: LORAZEPAM 2 MG INJ IV (14:25)
[2017-10-15] MEDS: MULTIVIT/CA CARB/B CMPLX/FA TAB PO (14:32)
[2017-10-15] MEDS: predniSONE 20 MG TAB PO (14:32)
[2017-10-15] MEDS: DOCUSATE SODIUM 100 MG CAP PO ×2 (14:32→20:49)
[2017-10-15] MEDS: CALCIUM/VITAMIN D (250/125) TAB PO ×2 (14:33→21:01)
[2017-10-15] MEDS: AMLODIPINE 10 MG TAB PO (14:33)
[2017-10-15] MEDS: CYCLOPHOSPHAMIDE 25 MG PO ×2 (14:42→20:53)
[2017-10-15 16:00] LABS: ADD MAN DIFF? NO
[2017-10-15 16:04] LABS: ABNORMAL IP MESSAGE 1; EOSINOPHILS # 0.1 10^3/ul (0.0-0.5); EOSINOPHILS % 0.7 % (0.0-7.0); HEMATOCRIT 25.4 % (37.0-47.0); HEMOGLOBIN 8.6 g/dl (12.0-16.0); IMMATURE GRANS #M 0.04 10^3/ul; IMMATURE GRANS % (M) 0.4 %; LYMPHOCYTES # 1.3 10^3/ul (0.8-2.9); LYMPHOCYTES % 12.9 % (15.0-51.0); MEAN CORPUSCULAR HEMOGLOBIN 29.5 pg (29.0-33.0); MEAN CORPUSCULAR HGB CONC 33.9 g/dl (32.0-37.0); MEAN PLATELET VOLUME 10.1 fl (7.4-10.4); MONOCYTE # 0.4 10^3/ul (0.3-0.9); MONOCYTES % 3.8 % (0.0-11.0); NEUTROPHIL # 8.3 10^3/ul (1.6-7.5); NEUTROPHILS % 82.2 % (39.0-77.0); PLATELET COUNT 82 10^3/UL (140-415); RED BLOOD COUNT 2.92 10^6/ul (4.20-5.40)
[2017-10-15 16:04] LABS: WHITE BLOOD COUNT 10.1 10^3/ul (4.8-10.8)
[2017-10-15 16:10] LABS: POSITIVE DIFF @See below
[2017-10-15 16:21] LABS: ANION GAP 13 (8-16); BLOOD UREA NITROGEN 24 mg/dl (7-20); CALCIUM 8.2 mg/dl (8.4-10.2); CARBON DIOXIDE 27 mmol/L (21-31); CHLORIDE 101 mmol/L (97-110); CREATININE 2.43 mg/dl (0.44-1.00); GLUCOSE 128 mg/dl (70-220); POTASSIUM 3.8 mmol/L (3.5-5.1); SODIUM 137 mmol/L (135-144)
[2017-10-15 16:27] LABS: ANION GAP 12 (8-16); BLOOD UREA NITROGEN 25 mg/dl (7-20); CALCIUM 8.3 mg/dl (8.4-10.2); CARBON DIOXIDE 28 mmol/L (21-31); CHLORIDE 101 mmol/L (97-110); GLUCOSE 127 mg/dl (70-220); MAGNESIUM 1.6 mg/dl (1.7-2.5); PHOSPHORUS 2.3 mg/dl (2.5-4.9); POTASSIUM 3.8 mmol/L (3.5-5.1); SODIUM 137 mmol/L (135-144)
[2017-10-15] MEDS: ACETAMINOPHEN 500 MG TAB PO (16:58)
[2017-10-15] MEDS: DIPHENHYDRAMINE 50 MG CAP PO (16:58)
[2017-10-15] MEDS ORDERED: DIPHENHYDRAMINE 50 MG CAP PO (17:00)
[2017-10-15] MEDS: SOD CHLORIDE 0.9% IV ×2 (18:00→18:09)
[2017-10-15] MEDS: RITUXIMAB IV ×2 (18:00→18:09)
[2017-10-16] MEDS: EPOETIN 4000 UNITS/1 ML INJ (ESRD) SC (02:18)
[2017-10-16] MEDS: PANTOPRAZOLE 40 MG INJ IV ×2 (06:25→17:24)
[2017-10-16] MEDS: FUROSEMIDE 40 MG INJ IV ×2 (06:26→17:24)
[2017-10-16] MEDS: INSULIN ASPART [NOVOLOG] 3 ML PEN SC ×7 (07:50→20:44)
[2017-10-16] MEDS: CALCIUM ACETATE 667 MG CAP PO ×3 (08:31→17:25)
[2017-10-16] MEDS: predniSONE 20 MG TAB PO (08:31)
[2017-10-16] MEDS: AMLODIPINE 10 MG TAB PO (08:32)
[2017-10-16] MEDS: MULTIVIT/CA CARB/B CMPLX/FA TAB PO (08:32)
[2017-10-16] MEDS: CALCIUM/VITAMIN D (250/125) TAB PO ×2 (08:32→20:43)
[2017-10-16] MEDS: DOCUSATE SODIUM 100 MG CAP PO ×2 (08:36→20:43)
[2017-10-16 09:25] LABS: ADD MAN DIFF? NO
[2017-10-16 09:36] LABS: ABNORMAL IP MESSAGE 1; BASOPHILS % 0.1 % (0.0-2.0); HEMATOCRIT 27.5 % (37.0-47.0); IMMATURE GRANS #M 0.08 10^3/ul; IMMATURE GRANS % (M) 0.7 %; LYMPHOCYTES # 0.5 10^3/ul (0.8-2.9); LYMPHOCYTES % 4.2 % (15.0-51.0); MEAN CORPUSCULAR HGB CONC 32.7 g/dl (32.0-37.0); MEAN CORPUSCULAR VOLUME 85.7 fl (82.0-101.0); MEAN PLATELET VOLUME 9.6 fl (7.4-10.4); MONOCYTE # 0.3 10^3/ul (0.3-0.9); MONOCYTES % 2.6 % (0.0-11.0); NEUTROPHIL # 11.1 10^3/ul (1.6-7.5); NEUTROPHILS % 92.4 % (39.0-77.0); PLATELET COUNT 89 10^3/UL (140-415); RED BLOOD COUNT 3.21 10^6/ul (4.20-5.40); RED CELL DISTRIBUTION WIDTH 16.3 % (11.5-14.5)
[2017-10-16] MEDS: CYCLOPHOSPHAMIDE 25 MG PO ×2 (09:48→21:44)
[2017-10-16 09:54] LABS: ALBUMIN 3.4 g/dl (3.3-4.9); ANION GAP 15 (8-16); BLOOD UREA NITROGEN 52 mg/dl (7-20); CALCIUM 8.9 mg/dl (8.4-10.2); CARBON DIOXIDE 28 mmol/L (21-31); CHLORIDE 101 mmol/L (97-110); CREATININE 4.42 mg/dl (0.44-1.00); GLUCOSE 130 mg/dl (70-220); MAGNESIUM 1.9 mg/dl (1.7-2.5); PHOSPHORUS 3.8 mg/dl (2.5-4.9); POTASSIUM 4.6 mmol/L (3.5-5.1); SODIUM 139 mmol/L (135-144)
[2017-10-16 09:59] LABS: ALANINE AMINOTRANSFERASE 51 IU/L (13-69); ALBUMIN 3.5 g/dl (3.3-4.9); ALBUMIN/GLOBULIN RATIO 1.52; ALKALINE PHOSPHATASE 45 IU/L (42-121); ANION GAP 15 (8-16); ASPARTATE AMINO TRANSFERASE 28 IU/L (15-46); BILIRUBIN,INDIRECT 1.8 mg/dl (0-1.1); BILIRUBIN,TOTAL 1.8 mg/dl (0.2-1.3); BLOOD UREA NITROGEN 52 mg/dl (7-20); CALCIUM 8.9 mg/dl (8.4-10.2); CARBON DIOXIDE 28 mmol/L (21-31); CHLORIDE 101 mmol/L (97-110); CREATININE 4.45 mg/dl (0.44-1.00); GLUCOSE 130 mg/dl (70-220); POTASSIUM 4.6 mmol/L (3.5-5.1); SODIUM 139 mmol/L (135-144); TOTAL PROTEIN 5.8 g/dl (6.1-8.1)
[2017-10-16 14:03] LABS: HAPTOGLOBIN <15 mg/dL (43-212); MYELOPEROXIDASE ANTIBODY <1.0 AI; NIL 0.04 IU/mL; PROTEINASE-3 ANTIBODY <1.0 AI; PTH INTACT 162 pg/mL (14-64); QUANTIFERON(R)-TB GOLD INDETERMINATE (NEGATIVE); TB-NIL <0.00 IU/mL
[2017-10-16 14:04] LABS: ALBUMIN 3.1 g/dL (3.8-4.8); ALPHA-1-GLOBULINS 0.7 g/dL (0.2-0.3); ALPHA-2-GLOBULINS 0.6 g/dL (0.5-0.9); ANA SCREEN NEGATIVE (NEGATIVE); BETA 2 GLOBULINS 0.4 g/dL (0.2-0.5); BETA GLOBULINS 0.5 g/dL (0.4-0.6); GAMMA GLOBULINS 0.8 g/dL (0.8-1.7)
[2017-10-16 14:05] LABS: HAPTOGLOBIN 134 mg/dL (43-212); HAPTOGLOBIN 154 mg/dL (43-212)
[2017-10-16] MEDS: METHYLPRED. NA SUCC 500 MG in DEXTROSE 5% 50 ML IVPB (17:25)
[2017-10-16] MEDS: ONDANSETRON 4 MG INJ IV (17:45)
[2017-10-16] MEDS: LORAZEPAM 2 MG INJ IV (17:45)
[2017-10-17] MEDS: PANTOPRAZOLE 40 MG INJ IV ×2 (05:20→17:44)
[2017-10-17] MEDS: FUROSEMIDE 40 MG INJ IV ×2 (05:22→17:44)
[2017-10-17] MEDS: INSULIN ASPART [NOVOLOG] 3 ML PEN SC ×7 (07:50→20:19)
[2017-10-17] MEDS: CALCIUM ACETATE 667 MG CAP PO ×3 (08:41→17:43)
[2017-10-17] MEDS: DOCUSATE SODIUM 100 MG CAP PO ×2 (08:42→20:03)
[2017-10-17] MEDS: MULTIVIT/CA CARB/B CMPLX/FA TAB PO (08:42)
[2017-10-17] MEDS: CALCIUM/VITAMIN D (250/125) TAB PO ×2 (08:42→20:04)
[2017-10-17] MEDS: AMLODIPINE 10 MG TAB PO (08:43)
[2017-10-17] MEDS: METHYLPRED. NA SUCC 500 MG in DEXTROSE 5% 50 ML IVPB (08:44)
[2017-10-17] MEDS: CYCLOPHOSPHAMIDE 25 MG PO ×2 (08:47→20:27)
[2017-10-17] MEDS: TRIMETHOPRIM/SULFAMETHOX (DS) TAB PO (08:50)
[2017-10-17 09:40] LABS: ADD MAN DIFF? NO
[2017-10-17 09:42] LABS: WHITE BLOOD COUNT 11.2 10^3/ul (4.8-10.8)
[2017-10-17 09:42] LABS: ABNORMAL IP MESSAGE 1; HEMATOCRIT 26.1 % (37.0-47.0); HEMOGLOBIN 8.8 g/dl (12.0-16.0); IMMATURE GRANS #M 0.08 10^3/ul; IMMATURE GRANS % (M) 0.7 %; LYMPHOCYTES # 0.5 10^3/ul (0.8-2.9); LYMPHOCYTES % 4.2 % (15.0-51.0); MEAN CORPUSCULAR HEMOGLOBIN 29.1 pg (29.0-33.0); MEAN CORPUSCULAR HGB CONC 33.7 g/dl (32.0-37.0); MEAN CORPUSCULAR VOLUME 86.4 fl (82.0-101.0); MEAN PLATELET VOLUME 9.8 fl (7.4-10.4); MONOCYTE # 0.2 10^3/ul (0.3-0.9); NEUTROPHIL # 10.5 10^3/ul (1.6-7.5); NEUTROPHILS % 93.1 % (39.0-77.0); PLATELET COUNT 113 10^3/UL (140-415); RED BLOOD COUNT 3.02 10^6/ul (4.20-5.40); RED CELL DISTRIBUTION WIDTH 15.9 % (11.5-14.5)
[2017-10-17 09:44] LABS: POSITIVE DIFF @See below
[2017-10-17 10:14] LABS: ALANINE AMINOTRANSFERASE 42 IU/L (13-69); ALBUMIN 3.4 g/dl (3.3-4.9); ALBUMIN/GLOBULIN RATIO 1.41; ALKALINE PHOSPHATASE 49 IU/L (42-121); ANION GAP 18 (8-16); ASPARTATE AMINO TRANSFERASE 27 IU/L (15-46); BILIRUBIN,INDIRECT 1.7 mg/dl (0-1.1); BILIRUBIN,TOTAL 1.7 mg/dl (0.2-1.3); BLOOD UREA NITROGEN 86 mg/dl (7-20); CALCIUM 9.3 mg/dl (8.4-10.2); CARBON DIOXIDE 25 mmol/L (21-31); CHLORIDE 100 mmol/L (97-110); CREATININE 6.56 mg/dl (0.44-1.00); GLUCOSE 137 mg/dl (70-220); SODIUM 138 mmol/L (135-144); TOTAL PROTEIN 5.8 g/dl (6.1-8.1)
[2017-10-17 10:22] LABS: ALBUMIN 3.3 g/dl (3.3-4.9); ANION GAP 19 (8-16); BLOOD UREA NITROGEN 87 mg/dl (7-20); CALCIUM 9.3 mg/dl (8.4-10.2); CARBON DIOXIDE 24 mmol/L (21-31); CHLORIDE 100 mmol/L (97-110); CREATININE 6.24 mg/dl (0.44-1.00); GLUCOSE 136 mg/dl (70-220); MAGNESIUM 2.1 mg/dl (1.7-2.5); PHOSPHORUS 4.7 mg/dl (2.5-4.9); SODIUM 138 mmol/L (135-144)
[2017-10-17 10:23] LABS: POTASSIUM 5.3 mmol/L (3.5-5.1)
[2017-10-17 10:24] LABS: POTASSIUM 5.3 mmol/L (3.5-5.1)
[2017-10-17] MEDS: ONDANSETRON 4 MG INJ IV (13:46)
[2017-10-17] MEDS: HEPARIN 1000 UNITS/ML 10 ML INJ CATHETER (17:28)
[2017-10-17] MEDS: ACETAMINOPHEN 325 MG TAB PO (20:03)
[2017-10-18] MEDS: FUROSEMIDE 40 MG INJ IV ×2 (06:52→18:11)
[2017-10-18] MEDS: PANTOPRAZOLE 40 MG INJ IV ×2 (06:52→18:12)
[2017-10-18] MEDS: INSULIN ASPART [NOVOLOG] 3 ML PEN SC ×7 (07:50→21:00)
[2017-10-18] MEDS: CYCLOPHOSPHAMIDE 25 MG PO (08:28)
[2017-10-18] MEDS: METHYLPRED. NA SUCC 500 MG in DEXTROSE 5% 50 ML IVPB (08:30)
[2017-10-18] MEDS: MULTIVIT/CA CARB/B CMPLX/FA TAB PO (08:31)
[2017-10-18] MEDS: CALCIUM ACETATE 667 MG CAP PO ×3 (08:31→18:12)
[2017-10-18] MEDS: DOCUSATE SODIUM 100 MG CAP PO (08:32)
[2017-10-18] MEDS: AMLODIPINE 10 MG TAB PO (08:32)
[2017-10-18] MEDS: CALCIUM/VITAMIN D (250/125) TAB PO (08:33)
[2017-10-18 10:49] LABS: ADD MAN DIFF? NO
[2017-10-18 10:51] LABS: WHITE BLOOD COUNT 9.2 10^3/ul (4.8-10.8)
[2017-10-18 10:51] LABS: ABNORMAL IP MESSAGE 1; BASOPHILS % 0.1 % (0.0-2.0); HEMATOCRIT 24.4 % (37.0-47.0); HEMOGLOBIN 7.9 g/dl (12.0-16.0); IMMATURE GRANS #M 0.07 10^3/ul; IMMATURE GRANS % (M) 0.8 %; LYMPHOCYTES # 0.6 10^3/ul (0.8-2.9); LYMPHOCYTES % 6.4 % (15.0-51.0); MEAN CORPUSCULAR HEMOGLOBIN 28.4 pg (29.0-33.0); MEAN CORPUSCULAR HGB CONC 32.4 g/dl (32.0-37.0); MEAN CORPUSCULAR VOLUME 87.8 fl (82.0-101.0); MEAN PLATELET VOLUME 10.2 fl (7.4-10.4); MONOCYTE # 0.4 10^3/ul (0.3-0.9); MONOCYTES % 4.5 % (0.0-11.0); NEUTROPHIL # 8.1 10^3/ul (1.6-7.5); NEUTROPHILS % 88.2 % (39.0-77.0); PLATELET COUNT 116 10^3/UL (140-415); RED BLOOD COUNT 2.78 10^6/ul (4.20-5.40); RED CELL DISTRIBUTION WIDTH 16.4 % (11.5-14.5)
[2017-10-18 10:54] LABS: POSITIVE DIFF @See below
[2017-10-18 11:13] LABS: ANION GAP 15 (8-16); BLOOD UREA NITROGEN 77 mg/dl (7-20); CALCIUM 8.9 mg/dl (8.4-10.2); CARBON DIOXIDE 28 mmol/L (21-31); CHLORIDE 98 mmol/L (97-110); CREATININE 5.34 mg/dl (0.44-1.00); GLUCOSE 148 mg/dl (70-220); MAGNESIUM 2.1 mg/dl (1.7-2.5); PHOSPHORUS 4.4 mg/dl (2.5-4.9); POTASSIUM 5.3 mmol/L (3.5-5.1); SODIUM 136 mmol/L (135-144)
[2017-10-18] MEDS: ONDANSETRON 4 MG INJ IV (12:56)
[2017-10-18] MEDS: EPOETIN 4000 UNITS/1 ML INJ (ESRD) SC (18:14)
[2017-10-18] MEDS: HEPARIN 1000 UNITS/ML 10 ML INJ CATHETER (23:25)
[2017-10-19] MEDS: LORAZEPAM 2 MG INJ IV (00:10)
[2017-10-19] MEDS: DOCUSATE SODIUM 100 MG CAP PO ×3 (00:38→20:22)
[2017-10-19] MEDS: CALCIUM/VITAMIN D (250/125) TAB PO ×3 (00:38→20:22)
[2017-10-19] MEDS: CYCLOPHOSPHAMIDE 25 MG PO ×3 (00:40→20:26)
[2017-10-19] MEDS: PANTOPRAZOLE 40 MG INJ IV ×2 (06:30→17:43)
[2017-10-19] MEDS: FUROSEMIDE 40 MG INJ IV ×2 (06:31→17:43)
[2017-10-19] MEDS: INSULIN ASPART [NOVOLOG] 3 ML PEN SC ×7 (07:50→20:27)
[2017-10-19] MEDS: CALCIUM ACETATE 667 MG CAP PO ×3 (08:24→17:42)
[2017-10-19] MEDS: MULTIVIT/CA CARB/B CMPLX/FA TAB PO (08:26)
[2017-10-19] MEDS: AMLODIPINE 10 MG TAB PO (08:27)
[2017-10-19] MEDS: TRIMETHOPRIM/SULFAMETHOX (DS) TAB PO (08:27)
[2017-10-19] MEDS: METHYLPREDNISOLONE 125 MG INJ IV ×2 (08:28→20:24)
[2017-10-19 09:10] LABS: ADD MAN DIFF? NO
[2017-10-19 09:13] LABS: WHITE BLOOD COUNT 8.7 10^3/ul (4.8-10.8)
[2017-10-19 09:13] LABS: ABNORMAL IP MESSAGE 1; BASOPHILS % 0.1 % (0.0-2.0); HEMATOCRIT 25.1 % (37.0-47.0); HEMOGLOBIN 8.2 g/dl (12.0-16.0); LYMPHOCYTES # 0.6 10^3/ul (0.8-2.9); LYMPHOCYTES % 6.5 % (15.0-51.0); MEAN CORPUSCULAR HEMOGLOBIN 28.7 pg (29.0-33.0); MEAN CORPUSCULAR HGB CONC 32.7 g/dl (32.0-37.0); MEAN CORPUSCULAR VOLUME 87.8 fl (82.0-101.0); MEAN PLATELET VOLUME 9.5 fl (7.4-10.4); MONOCYTE # 0.5 10^3/ul (0.3-0.9); NEUTROPHIL # 7.6 10^3/ul (1.6-7.5); NEUTROPHILS % 86.7 % (39.0-77.0); PLATELET COUNT 127 10^3/UL (140-415); RED BLOOD COUNT 2.86 10^6/ul (4.20-5.40); RED CELL DISTRIBUTION WIDTH 16.4 % (11.5-14.5)
[2017-10-19 09:19] LABS: POSITIVE DIFF @See below
[2017-10-19 09:42] LABS: IRON 60 ug/dl (35-150)
[2017-10-19 09:44] LABS: ALANINE AMINOTRANSFERASE 58 IU/L (13-69); ALBUMIN 3.1 g/dl (3.3-4.9); ALKALINE PHOSPHATASE 49 IU/L (42-121); ANION GAP 14 (8-16); ASPARTATE AMINO TRANSFERASE 20 IU/L (15-46); BILIRUBIN,INDIRECT 1.9 mg/dl (0-1.1); BILIRUBIN,TOTAL 1.9 mg/dl (0.2-1.3); BLOOD UREA NITROGEN 58 mg/dl (7-20); CALCIUM 8.8 mg/dl (8.4-10.2); CARBON DIOXIDE 29 mmol/L (21-31); CHLORIDE 98 mmol/L (97-110); CREATININE 4.41 mg/dl (0.44-1.00); GLUCOSE 116 mg/dl (70-220); POTASSIUM 4.9 mmol/L (3.5-5.1); SODIUM 136 mmol/L (135-144); TOTAL PROTEIN 5.3 g/dl (6.1-8.1)
[2017-10-19 09:51] LABS: % IRON SATURATION 29 % SAT (22-52); TOTAL IRON BINDING CAPACITY 209 ug/dl (241-421)
[2017-10-19 10:08] LABS: ALBUMIN 3.1 g/dl (3.3-4.9); ANION GAP 13 (8-16); BLOOD UREA NITROGEN 58 mg/dl (7-20); CALCIUM 8.7 mg/dl (8.4-10.2); CARBON DIOXIDE 29 mmol/L (21-31); CHLORIDE 98 mmol/L (97-110); CREATININE 4.46 mg/dl (0.44-1.00); GLUCOSE 115 mg/dl (70-220); PHOSPHORUS 4.8 mg/dl (2.5-4.9); SODIUM 135 mmol/L (135-144)
[2017-10-19] MEDS ORDERED: SODIUM CHLORIDE 0.9% 1L BAG IV (15:30)
[2017-10-19] MEDS ORDERED: ALBUMIN HUMAN 25% 100 ML IV (15:30)
[2017-10-20] MEDS: PANTOPRAZOLE 40 MG INJ IV ×2 (05:50→17:51)
[2017-10-20] MEDS: FUROSEMIDE 40 MG INJ IV (05:58)
[2017-10-20] MEDS: INSULIN ASPART [NOVOLOG] 3 ML PEN SC ×7 (07:50→21:00)
[2017-10-20 08:08] LABS: AADO2 Arterial 93.3 mmHg (7.0-24.0); Allen Test ACCEPTAB; Arterial Base Excess 1.4 mmol/L (-3.0-3); Arterial Blood Gas Oxygen Sat 95.6 mmHG (95.0-98.0); Arterial COHb 0.8 % (0.0-3.0); Arterial Fraction of Oxyhgb 94.5 % (93.0-99.0); Arterial HCO3 24.7 mmol/L (22.0-26.0); Arterial MetHb 0.4 % (0.0-1.5); Arterial Total Hemglobin 8.9 g/dl (12.0-18.0); Arterial pCO2 33.8 mmhg (35-45); MODE NASAL CANNULA; Site Right Radial
[2017-10-20] MEDS: DOCUSATE SODIUM 100 MG CAP PO ×2 (08:46→21:46)
[2017-10-20] MEDS: MULTIVIT/CA CARB/B CMPLX/FA TAB PO (08:47)
[2017-10-20] MEDS: METHYLPREDNISOLONE 125 MG INJ IV ×2 (08:47→21:42)
[2017-10-20] MEDS: CALCIUM ACETATE 667 MG CAP PO ×3 (08:47→17:51)
[2017-10-20] MEDS: AMLODIPINE 10 MG TAB PO (08:47)
[2017-10-20] MEDS: CYCLOPHOSPHAMIDE 25 MG PO ×2 (08:50→21:44)
[2017-10-20] MEDS: CALCIUM/VITAMIN D (250/125) TAB PO ×3 (09:00→21:46)
[2017-10-20 11:56] LABS: ADD MAN DIFF? NO
[2017-10-20 12:08] LABS: WHITE BLOOD COUNT 8.6 10^3/ul (4.8-10.8)
[2017-10-20 12:08] LABS: ABNORMAL IP MESSAGE 1; BASOPHILS % 0.1 % (0.0-2.0); HEMOGLOBIN 8.3 g/dl (12.0-16.0); LYMPHOCYTES # 0.3 10^3/ul (0.8-2.9); LYMPHOCYTES % 3.7 % (15.0-51.0); MEAN CORPUSCULAR HEMOGLOBIN 29.4 pg (29.0-33.0); MEAN CORPUSCULAR HGB CONC 33.2 g/dl (32.0-37.0); MEAN CORPUSCULAR VOLUME 88.7 fl (82.0-101.0); MEAN PLATELET VOLUME 9.6 fl (7.4-10.4); MONOCYTE # 0.4 10^3/ul (0.3-0.9); MONOCYTES % 4.9 % (0.0-11.0); NEUTROPHIL # 7.8 10^3/ul (1.6-7.5); NEUTROPHILS % 90.4 % (39.0-77.0); PLATELET COUNT 146 10^3/UL (140-415); RED BLOOD COUNT 2.82 10^6/ul (4.20-5.40)
[2017-10-20] MEDS: BUMETANIDE 1 MG TAB PO ×2 (12:09→18:44)
[2017-10-20 12:23] LABS: ANION GAP 15 (8-16); BLOOD UREA NITROGEN 97 mg/dl (7-20); CALCIUM 8.8 mg/dl (8.4-10.2); CARBON DIOXIDE 25 mmol/L (21-31); CHLORIDE 99 mmol/L (97-110); GLUCOSE 141 mg/dl (70-220); POTASSIUM 5.4 mmol/L (3.5-5.1); SODIUM 134 mmol/L (135-144)
[2017-10-20 12:30] LABS: CREATININE 5.97 mg/dl (0.44-1.00)
[2017-10-20 12:48] LABS: POSITIVE DIFF @See below
[2017-10-20] MEDS: ONDANSETRON 4 MG INJ IV (12:49)
[2017-10-20] MEDS: EPOETIN 4000 UNITS/1 ML INJ (ESRD) SC (17:52)
[2017-10-21] MEDS: PANTOPRAZOLE 40 MG INJ IV ×2 (06:16→18:14)
[2017-10-21] MEDS: BUMETANIDE 1 MG TAB PO (06:16)
[2017-10-21] MEDS: INSULIN ASPART [NOVOLOG] 3 ML PEN SC ×7 (07:50→21:00)
[2017-10-21] MEDS: CALCIUM ACETATE 667 MG CAP PO ×3 (08:57→18:14)
[2017-10-21 09:28] LABS: ADD MAN DIFF? NO
[2017-10-21 09:39] LABS: WHITE BLOOD COUNT 6.7 10^3/ul (4.8-10.8)
[2017-10-21 09:39] LABS: ABNORMAL IP MESSAGE 1; BASOPHILS % 0.1 % (0.0-2.0); HEMATOCRIT 24.3 % (37.0-47.0); HEMOGLOBIN 8.1 g/dl (12.0-16.0); LYMPHOCYTES # 0.4 10^3/ul (0.8-2.9); LYMPHOCYTES % 5.8 % (15.0-51.0); MEAN CORPUSCULAR HEMOGLOBIN 29.2 pg (29.0-33.0); MEAN CORPUSCULAR HGB CONC 33.3 g/dl (32.0-37.0); MEAN CORPUSCULAR VOLUME 87.7 fl (82.0-101.0); MEAN PLATELET VOLUME 9.7 fl (7.4-10.4); MONOCYTE # 0.4 10^3/ul (0.3-0.9); MONOCYTES % 6.6 % (0.0-11.0); NEUTROPHIL # 5.8 10^3/ul (1.6-7.5); NEUTROPHILS % 86.6 % (39.0-77.0); PLATELET COUNT 150 10^3/UL (140-415); RED BLOOD COUNT 2.77 10^6/ul (4.20-5.40); RED CELL DISTRIBUTION WIDTH 16.4 % (11.5-14.5)
[2017-10-21 09:43] LABS: POSITIVE DIFF @See below
[2017-10-21 10:01] LABS: ANION GAP 16 (8-16); BLOOD UREA NITROGEN 70 mg/dl (7-20); CALCIUM 8.7 mg/dl (8.4-10.2); CARBON DIOXIDE 26 mmol/L (21-31); CHLORIDE 98 mmol/L (97-110); CREATININE 5.29 mg/dl (0.44-1.00); GLUCOSE 97 mg/dl (70-220); PHOSPHORUS 5.7 mg/dl (2.5-4.9); POTASSIUM 5.3 mmol/L (3.5-5.1); SODIUM 135 mmol/L (135-144)
[2017-10-21] MEDS: MULTIVIT/CA CARB/B CMPLX/FA TAB PO (10:05)
[2017-10-21] MEDS: METHYLPREDNISOLONE 125 MG INJ IV ×2 (10:05→23:30)
[2017-10-21] MEDS: DOCUSATE SODIUM 100 MG CAP PO ×2 (10:05→23:30)
[2017-10-21] MEDS: CALCIUM/VITAMIN D (250/125) TAB PO ×2 (10:05→23:30)
[2017-10-21] MEDS: FUROSEMIDE 40 MG INJ IV ×2 (10:10→18:14)
[2017-10-21] MEDS: AMLODIPINE 10 MG TAB PO (10:14)
[2017-10-21] MEDS: CYCLOPHOSPHAMIDE 25 MG PO ×2 (10:14→23:38)
[2017-10-21] MEDS: TRIMETHOPRIM/SULFAMETHOX (DS) TAB PO (13:00)
[2017-10-21] MEDS: HEPARIN 1000 UNITS/ML 10 ML INJ HE (13:56)
[2017-10-21] MEDS: NA POLYST SULFON 15 GM/60 ML BTL PO (14:23)
[2017-10-21] MEDS ORDERED: ALBUMIN HUMAN 25% 50 ML IV (17:30)
[2017-10-21] MEDS ORDERED: SODIUM CHLORIDE 0.9% 1L BAG IV (17:30)
[2017-10-21] MEDS: ONDANSETRON 4 MG INJ IV (19:51)
[2017-10-21 20:18] LABS: IMMEDIATE SPIN CROSSMATCH 1 1
[2017-10-21] MEDS: ALBUMIN HUMAN 5% 500ML INJ CATHETER (21:00)
[2017-10-21] MEDS: CITRATE DEXTROSE SOLUTION 1,000 ML SOLUTION MC (21:16)
[2017-10-21] MEDS: DEXTROSE IVPB (21:18)
[2017-10-21] MEDS: NACL IVPB (21:18)
[2017-10-21] MEDS: CALCIUM GLUCONATE IVPB (21:18)
[2017-10-21] MEDS: DIPHENHYDRAMINE 50 MG INJ IV (21:58)
[2017-10-22] MEDS: PANTOPRAZOLE 40 MG INJ IV ×2 (06:05→19:01)
[2017-10-22] MEDS: FUROSEMIDE 40 MG INJ IV ×2 (06:06→19:00)
[2017-10-22] MEDS: CALCIUM ACETATE 667 MG CAP PO ×3 (07:50→19:01)
[2017-10-22] MEDS: INSULIN ASPART [NOVOLOG] 3 ML PEN SC ×8 (07:50→21:00)
[2017-10-22 09:07] LABS: ADD MAN DIFF? NO
[2017-10-22 09:09] LABS: ABNORMAL IP MESSAGE 1; BASOPHILS % 0.2 % (0.0-2.0); HEMATOCRIT 22.3 % (37.0-47.0); HEMOGLOBIN 7.4 g/dl (12.0-16.0); LYMPHOCYTES # 0.3 10^3/ul (0.8-2.9); LYMPHOCYTES % 5.1 % (15.0-51.0); MEAN CORPUSCULAR HEMOGLOBIN 29.5 pg (29.0-33.0); MEAN CORPUSCULAR HGB CONC 33.2 g/dl (32.0-37.0); MEAN CORPUSCULAR VOLUME 88.8 fl (82.0-101.0); MEAN PLATELET VOLUME 9.4 fl (7.4-10.4); MONOCYTE # 0.3 10^3/ul (0.3-0.9); MONOCYTES % 4.8 % (0.0-11.0); NEUTROPHILS % 88.8 % (39.0-77.0); PLATELET COUNT 134 10^3/UL (140-415); RED BLOOD COUNT 2.51 10^6/ul (4.20-5.40); RED CELL DISTRIBUTION WIDTH 16.5 % (11.5-14.5)
[2017-10-22 09:09] LABS: WHITE BLOOD COUNT 5.6 10^3/ul (4.8-10.8)
[2017-10-22 09:13] LABS: POSITIVE DIFF @See below
[2017-10-22 09:34] LABS: ANION GAP 19 (8-16); BLOOD UREA NITROGEN 99 mg/dl (7-20); CARBON DIOXIDE 26 mmol/L (21-31); CHLORIDE 98 mmol/L (97-110); GLUCOSE 97 mg/dl (70-220); PHOSPHORUS 6.6 mg/dl (2.5-4.9); POTASSIUM 5.7 mmol/L (3.5-5.1); SODIUM 137 mmol/L (135-144)
[2017-10-22] MEDS: LORAZEPAM 0.5 MG TAB PO ×2 (09:56→22:39)
[2017-10-22] MEDS: HEPARIN 1000 UNITS/ML 10 ML INJ CATHETER (13:50)
[2017-10-22] MEDS: METHYLPREDNISOLONE 125 MG INJ IV ×2 (13:52→21:30)
[2017-10-22] MEDS: AMLODIPINE 10 MG TAB PO (13:52)
[2017-10-22] MEDS: CALCIUM/VITAMIN D (250/125) TAB PO ×2 (13:55→20:33)
[2017-10-22] MEDS: MULTIVIT/CA CARB/B CMPLX/FA TAB PO (13:55)
[2017-10-22] MEDS: DOCUSATE SODIUM 100 MG CAP PO ×2 (13:55→20:33)
[2017-10-22] MEDS: CYCLOPHOSPHAMIDE 25 MG PO ×2 (13:57→20:44)
[2017-10-22] MEDS ORDERED: DIPHENHYDRAMINE 50 MG INJ IV (15:30)
[2017-10-22] MEDS: EPOETIN 4000 UNITS/1 ML INJ (ESRD) SC (16:02)
[2017-10-22 16:19] LABS: AADO2 Arterial 86.7 mmHg (7.0-24.0); Allen Test ACCEPTAB; Arterial Base Excess 3.4 mmol/L (-3.0-3); Arterial Blood Gas Oxygen Sat 95.9 mmHG (95.0-98.0); Arterial COHb 0.5 % (0.0-3.0); Arterial Fraction of Oxyhgb 94.8 % (93.0-99.0); Arterial HCO3 26.8 mmol/L (22.0-26.0); Arterial MetHb 0.6 % (0.0-1.5); Arterial pCO2 35.1 mmhg (35-45); MODE NASAL CANNULA; Site Right Radial
[2017-10-22] MEDS ORDERED: EPINEPHrine 1 MG INJ SC (17:00)
[2017-10-22] MEDS: ACETAMINOPHEN 325 MG TAB PO (18:10)
[2017-10-22] MEDS: DIPHENHYDRAMINE 50 MG CAP PO (18:11)
[2017-10-22] MEDS: RITUXIMAB IV (18:20)
[2017-10-22] MEDS: SOD CHLORIDE 0.9% IV (18:20)
[2017-10-22] MEDS: hydrALAzine 20 MG INJ IV ×2 (19:00→23:08)
[2017-10-22] MEDS: ACETAMINOPHEN 500 MG TAB PO (19:43)
[2017-10-22] MEDS: SOD CHLORIDE 0.9% 250 ML IV* (20:15)
[2017-10-23] MEDS: FUROSEMIDE 40 MG INJ IV ×2 (05:37→18:01)
[2017-10-23] MEDS: PANTOPRAZOLE 40 MG INJ IV ×2 (05:37→17:59)
[2017-10-23 07:52] LABS: IMMEDIATE SPIN CROSSMATCH 1
[2017-10-23] MEDS: CALCIUM ACETATE 667 MG CAP PO ×3 (08:16→18:05)
[2017-10-23] MEDS: DIPHENHYDRAMINE 50 MG INJ IV ×2 (08:16→18:25)
[2017-10-23] MEDS: SOD CHLORIDE 0.9% 250 ML IV* (08:17)
[2017-10-23] MEDS: MULTIVIT/CA CARB/B CMPLX/FA TAB PO (08:18)
[2017-10-23] MEDS: AMLODIPINE 10 MG TAB PO (08:18)
[2017-10-23] MEDS: METHYLPREDNISOLONE 125 MG INJ IV ×2 (08:19→20:58)
[2017-10-23] MEDS: CALCIUM/VITAMIN D (250/125) TAB PO ×2 (08:19→20:59)
[2017-10-23] MEDS: DOCUSATE SODIUM 100 MG CAP PO ×2 (08:19→20:59)
[2017-10-23] MEDS: ACETAMINOPHEN 325 MG TAB PO ×2 (08:20→21:05)
[2017-10-23] MEDS: INSULIN ASPART [NOVOLOG] 3 ML PEN SC ×7 (08:23→21:00)
[2017-10-23] MEDS: CYCLOPHOSPHAMIDE 25 MG PO ×2 (08:24→21:01)
[2017-10-23 09:19] LABS: ALANINE AMINOTRANSFERASE 25 IU/L (13-69); ALBUMIN/GLOBULIN RATIO 1.42; ALKALINE PHOSPHATASE 31 IU/L (42-121); ANION GAP 14 (8-16); ASPARTATE AMINO TRANSFERASE 18 IU/L (15-46); BILIRUBIN,INDIRECT 1.6 mg/dl (0-1.1); BILIRUBIN,TOTAL 1.6 mg/dl (0.2-1.3); BLOOD UREA NITROGEN 73 mg/dl (7-20); CARBON DIOXIDE 29 mmol/L (21-31); CHLORIDE 101 mmol/L (97-110); CREATININE 5.22 mg/dl (0.44-1.00); GLUCOSE 94 mg/dl (70-220); POTASSIUM 5.2 mmol/L (3.5-5.1); SODIUM 139 mmol/L (135-144); TOTAL PROTEIN 5.1 g/dl (6.1-8.1)
[2017-10-23] MEDS: ONDANSETRON 4 MG INJ IV (18:01)
[2017-10-23] MEDS: hydrALAzine 20 MG INJ IV (18:25)
[2017-10-23] MEDS: DIPHENHYDRAMINE 50 MG CAP PO (19:22)
[2017-10-24] MEDS: PANTOPRAZOLE 40 MG INJ IV ×2 (05:30→18:00)
[2017-10-24] MEDS: FUROSEMIDE 40 MG INJ IV ×2 (05:30→18:00)
[2017-10-24] MEDS: INSULIN ASPART [NOVOLOG] 3 ML PEN SC ×7 (07:50→21:00)
[2017-10-24] MEDS: CALCIUM/VITAMIN D (250/125) TAB PO ×2 (08:28→21:23)
[2017-10-24] MEDS: DOCUSATE SODIUM 100 MG CAP PO ×2 (08:28→21:23)
[2017-10-24] MEDS: CALCIUM ACETATE 667 MG CAP PO ×3 (08:28→17:55)
[2017-10-24] MEDS: MULTIVIT/CA CARB/B CMPLX/FA TAB PO (08:28)
[2017-10-24] MEDS: AMLODIPINE 10 MG TAB PO (08:29)
[2017-10-24] MEDS: METHYLPREDNISOLONE 125 MG INJ IV ×2 (08:30→21:23)
[2017-10-24] MEDS: CYCLOPHOSPHAMIDE 25 MG PO ×2 (08:32→21:40)
[2017-10-24] MEDS: TRIMETHOPRIM/SULFAMETHOX (DS) TAB PO (10:11)
[2017-10-24 11:33] LABS: ADD MAN DIFF? NO
[2017-10-24 11:41] LABS: WHITE BLOOD COUNT 7.4 10^3/ul (4.8-10.8)
[2017-10-24 11:41] LABS: ABNORMAL IP MESSAGE 1; HEMATOCRIT 27.1 % (37.0-47.0); HEMOGLOBIN 8.9 g/dl (12.0-16.0); LYMPHOCYTES # 0.2 10^3/ul (0.8-2.9); MEAN CORPUSCULAR HEMOGLOBIN 29.6 pg (29.0-33.0); MEAN CORPUSCULAR HGB CONC 32.8 g/dl (32.0-37.0); MEAN PLATELET VOLUME 9.5 fl (7.4-10.4); MONOCYTE # 0.3 10^3/ul (0.3-0.9); MONOCYTES % 4.2 % (0.0-11.0); NEUTROPHIL # 6.8 10^3/ul (1.6-7.5); NEUTROPHILS % 91.3 % (39.0-77.0); PLATELET COUNT 154 10^3/UL (140-415); RED BLOOD COUNT 3.01 10^6/ul (4.20-5.40); RED CELL DISTRIBUTION WIDTH 17.6 % (11.5-14.5)
[2017-10-24 11:43] LABS: POSITIVE DIFF @See below
[2017-10-24 12:06] LABS: ALANINE AMINOTRANSFERASE 42 IU/L (13-69); ALBUMIN 3.1 g/dl (3.3-4.9); ALKALINE PHOSPHATASE 40 IU/L (42-121); ANION GAP 18 (8-16); ASPARTATE AMINO TRANSFERASE 23 IU/L (15-46); BILIRUBIN,INDIRECT 0.9 mg/dl (0-1.1); BILIRUBIN,TOTAL 0.9 mg/dl (0.2-1.3); BLOOD UREA NITROGEN 107 mg/dl (7-20); CALCIUM 9.2 mg/dl (8.4-10.2); CARBON DIOXIDE 23 mmol/L (21-31); CHLORIDE 101 mmol/L (97-110); GLUCOSE 153 mg/dl (70-220); POTASSIUM 5.4 mmol/L (3.5-5.1); SODIUM 137 mmol/L (135-144); TOTAL PROTEIN 5.3 g/dl (6.1-8.1)
[2017-10-24 12:12] LABS: CREATININE 6.58 mg/dl (0.44-1.00)
[2017-10-24] MEDS: ONDANSETRON 4 MG INJ IV (16:15)
[2017-10-24] MEDS: HEPARIN 1000 UNITS/ML 10 ML INJ CATHETER (20:35)
[2017-10-25] MEDS: FUROSEMIDE 40 MG INJ IV ×2 (05:41→17:45)
[2017-10-25] MEDS: PANTOPRAZOLE 40 MG INJ IV ×2 (05:41→17:42)
[2017-10-25] MEDS: INSULIN ASPART [NOVOLOG] 3 ML PEN SC ×7 (07:50→21:00)
[2017-10-25] MEDS: CALCIUM ACETATE 667 MG CAP PO ×3 (08:30→17:42)
[2017-10-25] MEDS: CYCLOPHOSPHAMIDE 25 MG PO ×2 (08:31→20:34)
[2017-10-25] MEDS: AMLODIPINE 10 MG TAB PO (08:32)
[2017-10-25] MEDS: MULTIVIT/CA CARB/B CMPLX/FA TAB PO (08:32)
[2017-10-25] MEDS: DOCUSATE SODIUM 100 MG CAP PO ×2 (08:32→20:18)
[2017-10-25] MEDS: CALCIUM/VITAMIN D (250/125) TAB PO ×2 (08:33→20:18)
[2017-10-25] MEDS: METHYLPREDNISOLONE 125 MG INJ IV (08:37)
[2017-10-25 11:06] LABS: ADD MAN DIFF? NO
[2017-10-25 11:09] LABS: WHITE BLOOD COUNT 6.7 10^3/ul (4.8-10.8)
[2017-10-25 11:09] LABS: ABNORMAL IP MESSAGE 1; EOSINOPHILS % 0.1 % (0.0-7.0); HEMATOCRIT 25.2 % (37.0-47.0); HEMOGLOBIN 8.4 g/dl (12.0-16.0); LYMPHOCYTES # 0.3 10^3/ul (0.8-2.9); LYMPHOCYTES % 3.9 % (15.0-51.0); MEAN CORPUSCULAR HEMOGLOBIN 29.9 pg (29.0-33.0); MEAN CORPUSCULAR HGB CONC 33.3 g/dl (32.0-37.0); MEAN CORPUSCULAR VOLUME 89.7 fl (82.0-101.0); MEAN PLATELET VOLUME 9.4 fl (7.4-10.4); MONOCYTE # 0.5 10^3/ul (0.3-0.9); MONOCYTES % 7.3 % (0.0-11.0); NEUTROPHIL # 5.9 10^3/ul (1.6-7.5); NEUTROPHILS % 87.5 % (39.0-77.0); PLATELET COUNT 136 10^3/UL (140-415); RED BLOOD COUNT 2.81 10^6/ul (4.20-5.40); RED CELL DISTRIBUTION WIDTH 17.8 % (11.5-14.5)
[2017-10-25 11:15] LABS: POSITIVE DIFF @See below
[2017-10-25 11:30] LABS: ANION GAP 19 (8-16); BLOOD UREA NITROGEN 73 mg/dl (7-20); CALCIUM 9.1 mg/dl (8.4-10.2); CARBON DIOXIDE 26 mmol/L (21-31); CHLORIDE 97 mmol/L (97-110); GLUCOSE 136 mg/dl (70-220); POTASSIUM 5.2 mmol/L (3.5-5.1); SODIUM 137 mmol/L (135-144)
[2017-10-25 11:38] LABS: CREATININE 5.44 mg/dl (0.44-1.00)
[2017-10-25] MEDS ORDERED: SODIUM CHLORIDE 0.9% 1L BAG IV (12:00)
[2017-10-25] MEDS ORDERED: ALBUMIN HUMAN 25% 50 ML IV (12:00)
[2017-10-25] MEDS: EPOETIN 4000 UNITS/1 ML INJ (ESRD) SC (17:42)
[2017-10-25] MEDS: predniSONE 10 MG TAB PO (17:42)
[2017-10-25] MEDS: ONDANSETRON 4 MG INJ IV (20:18)
[2017-10-25] MEDS: CITRATE DEXTROSE SOLUTION 1,000 ML SOLUTION MC (22:20)
[2017-10-25] MEDS: ALBUMIN HUMAN 5% 2,000 ML IV (22:20)
[2017-10-25] MEDS: CALCIUM GLUCONATE IVPB (22:20)
[2017-10-25] MEDS: DEXTROSE 5% IVPB (22:20)
[2017-10-25] MEDS: DIPHENHYDRAMINE 50 MG CAP PO (23:01)
[2017-10-26] MEDS: PANTOPRAZOLE 40 MG INJ IV ×2 (05:32→18:33)
[2017-10-26] MEDS: FUROSEMIDE 40 MG INJ IV ×2 (05:33→18:35)
[2017-10-26] MEDS: INSULIN ASPART [NOVOLOG] 3 ML PEN SC ×7 (07:50→21:00)
[2017-10-26] MEDS: DOCUSATE SODIUM 100 MG CAP PO ×2 (09:06→21:01)
[2017-10-26] MEDS: CALCIUM ACETATE 667 MG CAP PO ×3 (09:07→19:40)
[2017-10-26] MEDS: MULTIVIT/CA CARB/B CMPLX/FA TAB PO (09:07)
[2017-10-26] MEDS: predniSONE 10 MG TAB PO ×2 (09:08→18:34)
[2017-10-26] MEDS: CALCIUM/VITAMIN D (250/125) TAB PO ×2 (09:08→21:01)
[2017-10-26] MEDS: AMLODIPINE 10 MG TAB PO (09:09)
[2017-10-26] MEDS: CYCLOPHOSPHAMIDE 25 MG PO ×2 (09:10→21:02)
[2017-10-26] MEDS: TRIMETHOPRIM/SULFAMETHOX (DS) TAB PO (09:15)
[2017-10-26 12:21] LABS: HEPATITIS B SURFACE ANTIGEN NEGATIVE (NEGATIVE)
[2017-10-26 12:38] LABS: HEPATITIS B SURFACE ANTIBODY POSITIVE (NEGATIVE)
[2017-10-26] MEDS ORDERED: CA GLUCONATE (50 MG/ML) IV SYG IVPB (19:06)
[2017-10-26 20:40] LABS: TYPE AND SCREEN 1 1
[2017-10-26] MEDS: CALCIUM GLUCONATE IVPB (20:49)
[2017-10-26] MEDS: DEXTROSE 5% IVPB (20:49)
[2017-10-26] MEDS: CITRATE DEXTROSE SOLUTION 1,000 ML SOLUTION MC (20:50)
[2017-10-26] MEDS: ALBUMIN HUMAN 5% 500ML INJ CATHETER (20:50)
[2017-10-26] MEDS: ONDANSETRON 4 MG INJ IV (21:01)
[2017-10-26] MEDS: DIPHENHYDRAMINE 50 MG CAP PO (21:04)
[2017-10-27] MEDS: FUROSEMIDE 40 MG INJ IV ×2 (06:22→18:11)
[2017-10-27] MEDS: PANTOPRAZOLE (EC) 40 MG TAB PO ×2 (06:22→18:08)
[2017-10-27] MEDS: INSULIN ASPART [NOVOLOG] 3 ML PEN SC ×7 (07:50→21:00)
[2017-10-27] MEDS: predniSONE 10 MG TAB PO ×2 (07:50→17:53)
[2017-10-27] MEDS: CALCIUM ACETATE 667 MG CAP PO ×3 (07:50→18:09)
[2017-10-27] MEDS: ONDANSETRON 4 MG INJ IV (08:49)
[2017-10-27] MEDS: DIPHENHYDRAMINE 50 MG CAP PO (08:49)
[2017-10-27] MEDS: CYCLOPHOSPHAMIDE 25 MG PO ×3 (09:00→21:29)
[2017-10-27] MEDS: CALCIUM/VITAMIN D (250/125) TAB PO ×3 (09:00→21:40)
[2017-10-27] MEDS: MULTIVIT/CA CARB/B CMPLX/FA TAB PO ×2 (09:00→13:04)
[2017-10-27] MEDS: AMLODIPINE 10 MG TAB PO ×2 (09:00→13:07)
[2017-10-27] MEDS: DOCUSATE SODIUM 100 MG CAP PO ×3 (09:00→21:20)
[2017-10-27] MEDS: HEPARIN 1000 UNITS/ML 10 ML INJ CATHETER (13:09)
[2017-10-27 14:10] LABS: ADD MAN DIFF? NO
[2017-10-27 14:14] LABS: WHITE BLOOD COUNT 5.1 10^3/ul (4.8-10.8)
[2017-10-27 14:14] LABS: ABNORMAL IP MESSAGE 1; EOSINOPHILS % 0.2 % (0.0-7.0); HEMATOCRIT 23.4 % (37.0-47.0); HEMOGLOBIN 7.7 g/dl (12.0-16.0); LYMPHOCYTES # 0.3 10^3/ul (0.8-2.9); LYMPHOCYTES % 6.3 % (15.0-51.0); MEAN CORPUSCULAR HEMOGLOBIN 29.5 pg (29.0-33.0); MEAN CORPUSCULAR HGB CONC 32.9 g/dl (32.0-37.0); MEAN CORPUSCULAR VOLUME 89.7 fl (82.0-101.0); MONOCYTE # 0.3 10^3/ul (0.3-0.9); MONOCYTES % 4.9 % (0.0-11.0); NEUTROPHIL # 4.5 10^3/ul (1.6-7.5); NEUTROPHILS % 87.6 % (39.0-77.0); PLATELET COUNT 92 10^3/UL (140-415); RED BLOOD COUNT 2.61 10^6/ul (4.20-5.40); RED CELL DISTRIBUTION WIDTH 17.8 % (11.5-14.5)
[2017-10-27 14:15] LABS: POSITIVE DIFF @See below
[2017-10-27 14:31] LABS: ANION GAP 17 (8-16); BLOOD UREA NITROGEN 42 mg/dl (7-20); CALCIUM 8.3 mg/dl (8.4-10.2); CARBON DIOXIDE 27 mmol/L (21-31); CHLORIDE 100 mmol/L (97-110); CREATININE 3.67 mg/dl (0.44-1.00); GLUCOSE 135 mg/dl (70-220); POTASSIUM 4.1 mmol/L (3.5-5.1); SODIUM 140 mmol/L (135-144)
[2017-10-27] MEDS: EPOETIN 4000 UNITS/1 ML INJ (ESRD) SC (17:54)
[2017-10-27] MEDS: ACETAMINOPHEN 325 MG TAB PO (18:08)
[2017-10-28] MEDS: PANTOPRAZOLE (EC) 40 MG TAB PO ×2 (06:23→17:58)
[2017-10-28] MEDS: FUROSEMIDE 40 MG INJ IV ×2 (06:27→17:41)
[2017-10-28] MEDS: INSULIN ASPART [NOVOLOG] 3 ML PEN SC ×7 (07:50→21:00)
[2017-10-28] MEDS: CALCIUM ACETATE 667 MG CAP PO ×3 (08:28→17:41)
[2017-10-28] MEDS: MULTIVIT/CA CARB/B CMPLX/FA TAB PO (08:28)
[2017-10-28] MEDS: AMLODIPINE 10 MG TAB PO (08:29)
[2017-10-28] MEDS: CALCIUM/VITAMIN D (250/125) TAB PO ×2 (08:29→21:46)
[2017-10-28] MEDS: predniSONE 10 MG TAB PO ×2 (08:29→17:41)
[2017-10-28] MEDS: DOCUSATE SODIUM 100 MG CAP PO ×2 (08:30→21:00)
[2017-10-28] MEDS: CYCLOPHOSPHAMIDE 25 MG PO ×2 (08:33→21:45)
[2017-10-28] MEDS: TRIMETHOPRIM/SULFAMETHOX (DS) TAB PO (09:50)
[2017-10-28 10:28] LABS: ADD MAN DIFF? NO
[2017-10-28 10:30] LABS: WHITE BLOOD COUNT 6.1 10^3/ul (4.8-10.8)
[2017-10-28 10:30] LABS: ABNORMAL IP MESSAGE 1; EOSINOPHILS % 0.2 % (0.0-7.0); HEMATOCRIT 24.9 % (37.0-47.0); HEMOGLOBIN 8.2 g/dl (12.0-16.0); LYMPHOCYTES # 0.3 10^3/ul (0.8-2.9); LYMPHOCYTES % 4.1 % (15.0-51.0); MEAN CORPUSCULAR HEMOGLOBIN 30.1 pg (29.0-33.0); MEAN CORPUSCULAR HGB CONC 32.9 g/dl (32.0-37.0); MEAN CORPUSCULAR VOLUME 91.5 fl (82.0-101.0); MEAN PLATELET VOLUME 9.4 fl (7.4-10.4); MONOCYTE # 0.3 10^3/ul (0.3-0.9); MONOCYTES % 5.2 % (0.0-11.0); NEUTROPHIL # 5.5 10^3/ul (1.6-7.5); NEUTROPHILS % 89.8 % (39.0-77.0); PLATELET COUNT 92 10^3/UL (140-415); RED BLOOD COUNT 2.72 10^6/ul (4.20-5.40); RED CELL DISTRIBUTION WIDTH 17.5 % (11.5-14.5)
[2017-10-28 10:31] LABS: POSITIVE DIFF @See below
[2017-10-28] MEDS: ONDANSETRON 4 MG INJ IV (12:09)
[2017-10-28] MEDS ORDERED: ALBUMIN HUMAN 25% 50 ML IV (17:30)
[2017-10-28] MEDS ORDERED: SODIUM CHLORIDE 0.9% 1L BAG IV (17:30)
[2017-10-28] MEDS: HYDROCODONE/APAP (5/325) TAB PO (21:46)
[2017-10-29] MEDS: PANTOPRAZOLE (EC) 40 MG TAB PO ×2 (06:19→18:05)
[2017-10-29] MEDS: FUROSEMIDE 40 MG INJ IV (06:21)
[2017-10-29] MEDS: INSULIN ASPART [NOVOLOG] 3 ML PEN SC ×7 (07:50→20:29)
[2017-10-29] MEDS: predniSONE 10 MG TAB PO ×2 (08:17→17:44)
[2017-10-29] MEDS: CALCIUM ACETATE 667 MG CAP PO ×3 (08:17→17:44)
[2017-10-29] MEDS: DOCUSATE SODIUM 100 MG CAP PO ×3 (08:17→20:33)
[2017-10-29] MEDS: AMLODIPINE 10 MG TAB PO (08:19)
[2017-10-29] MEDS: MULTIVIT/CA CARB/B CMPLX/FA TAB PO (08:20)
[2017-10-29] MEDS: CALCIUM/VITAMIN D (250/125) TAB PO ×2 (08:20→20:27)
[2017-10-29] MEDS: ONDANSETRON 4 MG INJ IV ×2 (08:49→17:16)
[2017-10-29 10:40] LABS: ADD MAN DIFF? NO
[2017-10-29 10:45] LABS: ABNORMAL IP MESSAGE 1; HEMATOCRIT 20.9 % (37.0-47.0); LYMPHOCYTES # 0.2 10^3/ul (0.8-2.9); LYMPHOCYTES % 4.9 % (15.0-51.0); MEAN CORPUSCULAR HEMOGLOBIN 30.4 pg (29.0-33.0); MEAN CORPUSCULAR HGB CONC 33.5 g/dl (32.0-37.0); MEAN CORPUSCULAR VOLUME 90.9 fl (82.0-101.0); MEAN PLATELET VOLUME 9.8 fl (7.4-10.4); MONOCYTE # 0.3 10^3/ul (0.3-0.9); MONOCYTES % 5.8 % (0.0-11.0); NEUTROPHIL # 4.1 10^3/ul (1.6-7.5); NEUTROPHILS % 88.4 % (39.0-77.0); PLATELET COUNT 72 10^3/UL (140-415); RED CELL DISTRIBUTION WIDTH 17.5 % (11.5-14.5)
[2017-10-29 10:45] LABS: WHITE BLOOD COUNT 4.7 10^3/ul (4.8-10.8)
[2017-10-29 10:46] LABS: POSITIVE DIFF @See below
[2017-10-29 11:13] LABS: ALANINE AMINOTRANSFERASE 32 IU/L (13-69); ALBUMIN 2.8 g/dl (3.3-4.9); ALKALINE PHOSPHATASE 33 IU/L (42-121); ANION GAP 17 (8-16); ASPARTATE AMINO TRANSFERASE 16 IU/L (15-46); BILIRUBIN,INDIRECT 1.3 mg/dl (0-1.1); BILIRUBIN,TOTAL 1.3 mg/dl (0.2-1.3); BLOOD UREA NITROGEN 85 mg/dl (7-20); CALCIUM 8.4 mg/dl (8.4-10.2); CARBON DIOXIDE 27 mmol/L (21-31); CHLORIDE 98 mmol/L (97-110); GLUCOSE 140 mg/dl (70-220); POTASSIUM 5.1 mmol/L (3.5-5.1); SODIUM 137 mmol/L (135-144); TOTAL PROTEIN 4.8 g/dl (6.1-8.1)
[2017-10-29 11:20] LABS: CREATININE 6.91 mg/dl (0.44-1.00)
[2017-10-29] MEDS ORDERED: EPINEPHrine 1 MG INJ IM ×2 (12:00→18:00)
[2017-10-29] MEDS ORDERED: MEPERIDINE 50 MG INJ IV ×2 (12:00→18:00)
[2017-10-29] MEDS: CYCLOPHOSPHAMIDE 25 MG PO ×2 (12:36→20:29)
[2017-10-29] MEDS: HEPARIN 1000 UNITS/ML 10 ML INJ CATHETER (12:45)
[2017-10-29] MEDS ORDERED: RITUXIMAB IV (13:00)
[2017-10-29] MEDS ORDERED: SOD CHLORIDE 0.9% IV (13:00)
[2017-10-29] MEDS: EPOETIN 4000 UNITS/1 ML INJ (ESRD) SC (16:53)
[2017-10-29] MEDS: DIPHENHYDRAMINE 50 MG CAP PO (17:16)
[2017-10-29] MEDS: ACETAMINOPHEN 500 MG TAB PO (17:16)
[2017-10-29] MEDS: SOD CHLORIDE 0.9% IV (18:36)
[2017-10-29] MEDS: RITUXIMAB IV (18:36)
[2017-10-29] MEDS: hydrALAzine 20 MG INJ IV (21:52)
[2017-10-30] MEDS: hydrALAzine 20 MG INJ IV (02:13)
[2017-10-30] MEDS: ACETAMINOPHEN 325 MG TAB PO (03:25)
[2017-10-30] MEDS: PANTOPRAZOLE (EC) 40 MG TAB PO ×2 (05:26→18:11)
[2017-10-30 08:17] LABS: ADD MAN DIFF? NO
[2017-10-30 08:21] LABS: WHITE BLOOD COUNT 5.5 10^3/ul (4.8-10.8)
[2017-10-30 08:21] LABS: ABNORMAL IP MESSAGE 1; BASOPHILS % 0.2 % (0.0-2.0); EOSINOPHILS % 0.2 % (0.0-7.0); HEMATOCRIT 21.9 % (37.0-47.0); HEMOGLOBIN 7.2 g/dl (12.0-16.0); LYMPHOCYTES # 0.3 10^3/ul (0.8-2.9); LYMPHOCYTES % 5.8 % (15.0-51.0); MEAN CORPUSCULAR HGB CONC 32.9 g/dl (32.0-37.0); MEAN CORPUSCULAR VOLUME 91.3 fl (82.0-101.0); MONOCYTE # 0.5 10^3/ul (0.3-0.9); MONOCYTES % 8.9 % (0.0-11.0); NEUTROPHIL # 4.7 10^3/ul (1.6-7.5); NEUTROPHILS % 84.2 % (39.0-77.0); PLATELET COUNT 86 10^3/UL (140-415)
[2017-10-30 08:22] LABS: POSITIVE DIFF @See below
[2017-10-30] MEDS: INSULIN ASPART [NOVOLOG] 3 ML PEN SC ×7 (08:45→21:00)
[2017-10-30] MEDS: DOCUSATE SODIUM 100 MG CAP PO ×2 (09:31→20:27)
[2017-10-30] MEDS: CALCIUM/VITAMIN D (250/125) TAB PO ×2 (09:31→20:27)
[2017-10-30] MEDS: FUROSEMIDE 40 MG INJ IV (09:31)
[2017-10-30] MEDS: AMLODIPINE 10 MG TAB PO (09:32)
[2017-10-30] MEDS: MULTIVIT/CA CARB/B CMPLX/FA TAB PO (09:32)
[2017-10-30] MEDS: predniSONE 10 MG TAB PO ×2 (09:32→18:11)
[2017-10-30] MEDS: CALCIUM ACETATE 667 MG CAP PO ×3 (09:32→18:11)
[2017-10-30] MEDS: CYCLOPHOSPHAMIDE 25 MG PO ×2 (09:34→20:36)
[2017-10-30] MEDS: ONDANSETRON 4 MG INJ IV (17:21)
[2017-10-31] MEDS: PANTOPRAZOLE (EC) 40 MG TAB PO ×2 (05:56→18:48)
[2017-10-31] MEDS: INSULIN ASPART [NOVOLOG] 3 ML PEN SC ×7 (08:30→21:32)
[2017-10-31] MEDS: CALCIUM ACETATE 667 MG CAP PO ×3 (08:45→18:48)
[2017-10-31] MEDS: MULTIVIT/CA CARB/B CMPLX/FA TAB PO (09:12)
[2017-10-31] MEDS: CALCIUM/VITAMIN D (250/125) TAB PO ×2 (09:13→21:32)
[2017-10-31] MEDS: DOCUSATE SODIUM 100 MG CAP PO ×2 (09:13→21:32)
[2017-10-31] MEDS: predniSONE 10 MG TAB PO ×2 (09:13→18:49)
[2017-10-31] MEDS: AMLODIPINE 10 MG TAB PO (09:13)
[2017-10-31] MEDS: FUROSEMIDE 40 MG INJ IV (09:14)
[2017-10-31] MEDS: CYCLOPHOSPHAMIDE 25 MG PO ×2 (09:17→21:30)
[2017-10-31] MEDS: TRIMETHOPRIM/SULFAMETHOX (DS) TAB PO (11:07)
[2017-10-31] MEDS: ONDANSETRON 4 MG INJ IV (12:28)
[2017-10-31 13:02] LABS: ADD MAN DIFF? NO
[2017-10-31 13:05] LABS: WHITE BLOOD COUNT 7.4 10^3/ul (4.8-10.8)
[2017-10-31 13:05] LABS: ABNORMAL IP MESSAGE 1; HEMATOCRIT 22.4 % (37.0-47.0); HEMOGLOBIN 7.4 g/dl (12.0-16.0); LYMPHOCYTES # 0.2 10^3/ul (0.8-2.9); MEAN CORPUSCULAR HEMOGLOBIN 30.7 pg (29.0-33.0); MEAN CORPUSCULAR VOLUME 92.9 fl (82.0-101.0); MEAN PLATELET VOLUME 10.2 fl (7.4-10.4); MONOCYTE # 0.5 10^3/ul (0.3-0.9); MONOCYTES % 6.4 % (0.0-11.0); NEUTROPHIL # 6.6 10^3/ul (1.6-7.5); NEUTROPHILS % 89.7 % (39.0-77.0); PLATELET COUNT 87 10^3/UL (140-415); RED BLOOD COUNT 2.41 10^6/ul (4.20-5.40); RED CELL DISTRIBUTION WIDTH 18.1 % (11.5-14.5)
[2017-10-31 13:11] LABS: POSITIVE DIFF @See below
[2017-10-31 13:19] LABS: ANION GAP 17 (8-16); BLOOD UREA NITROGEN 97 mg/dl (7-20); CALCIUM 9.3 mg/dl (8.4-10.2); CARBON DIOXIDE 25 mmol/L (21-31); CHLORIDE 101 mmol/L (97-110); GLUCOSE 90 mg/dl (70-220); SODIUM 137 mmol/L (135-144)
[2017-10-31 13:27] LABS: CREATININE 7.57 mg/dl (0.44-1.00); POTASSIUM 6.2 mmol/L (3.5-5.1)
[2017-10-31] MEDS: DIPHENHYDRAMINE 50 MG INJ IV (16:20)
[2017-10-31 17:08] LABS: IMMEDIATE SPIN CROSSMATCH 1 1
[2017-10-31] MEDS: HEPARIN 1000 UNITS/ML 10 ML INJ CATHETER (19:56)
[2017-11-01] MEDS: PANTOPRAZOLE (EC) 40 MG TAB PO ×2 (05:19→18:00)
[2017-11-01] MEDS: INSULIN ASPART [NOVOLOG] 3 ML PEN SC ×6 (07:50→17:55)
[2017-11-01] MEDS: CALCIUM ACETATE 667 MG CAP PO ×3 (08:30→17:55)
[2017-11-01] MEDS: CYCLOPHOSPHAMIDE 25 MG PO (08:33)
[2017-11-01] MEDS: DOCUSATE SODIUM 100 MG CAP PO (08:33)
[2017-11-01] MEDS: CALCIUM/VITAMIN D (250/125) TAB PO (08:34)
[2017-11-01] MEDS: AMLODIPINE 10 MG TAB PO (08:34)
[2017-11-01] MEDS: MULTIVIT/CA CARB/B CMPLX/FA TAB PO (08:35)
[2017-11-01] MEDS: FUROSEMIDE 40 MG TAB PO (08:35)
[2017-11-01] MEDS: predniSONE 10 MG TAB PO ×2 (08:36→17:55)
[2017-11-01 09:06] LABS: ADD MAN DIFF? NO
[2017-11-01 09:08] LABS: ABNORMAL IP MESSAGE 1; HEMATOCRIT 25.3 % (37.0-47.0); HEMOGLOBIN 8.5 g/dl (12.0-16.0); LYMPHOCYTES # 0.4 10^3/ul (0.8-2.9); LYMPHOCYTES % 6.2 % (15.0-51.0); MEAN CORPUSCULAR HEMOGLOBIN 30.2 pg (29.0-33.0); MEAN CORPUSCULAR HGB CONC 33.6 g/dl (32.0-37.0); MEAN PLATELET VOLUME 10.5 fl (7.4-10.4); MONOCYTE # 0.5 10^3/ul (0.3-0.9); MONOCYTES % 8.3 % (0.0-11.0); NEUTROPHIL # 5.3 10^3/ul (1.6-7.5); NEUTROPHILS % 84.9 % (39.0-77.0); PLATELET COUNT 84 10^3/UL (140-415); RED BLOOD COUNT 2.81 10^6/ul (4.20-5.40); RED CELL DISTRIBUTION WIDTH 17.1 % (11.5-14.5)
[2017-11-01 09:08] LABS: WHITE BLOOD COUNT 6.3 10^3/ul (4.8-10.8)
[2017-11-01 09:12] LABS: POSITIVE DIFF @See below
[2017-11-01 09:37] LABS: ANION GAP 15 (8-16); BLOOD UREA NITROGEN 61 mg/dl (7-20); CARBON DIOXIDE 30 mmol/L (21-31); CHLORIDE 97 mmol/L (97-110); GLUCOSE 84 mg/dl (70-220); POTASSIUM 5.4 mmol/L (3.5-5.1); SODIUM 137 mmol/L (135-144)
[2017-11-01] MEDS: ONDANSETRON 4 MG INJ IV (13:33)
[2017-11-01] MEDS: HEPARIN 1000 UNITS/ML 10 ML INJ CATHETER (16:12)
[2017-11-01] MEDS: EPOETIN 4000 UNITS/1 ML INJ (ESRD) SC (18:06)
== END 2017-11-01 18:10 | disposition home or self-care (01) | DRG 545 ==
LOC: TEL 09-24 06:13 → ICU 09-29 19:08 → MS1 10-11 17:28
PROC: 5A1D70Z Performance of Urinary Filtration, Intermittent, Less than 6 Hours Per Day (ICD-10-PCS; principal; 2017-09-29 11:45)
PROC: 0TB03ZX Excision of Right Kidney, Percutaneous Approach, Diagnostic (ICD-10-PCS; 2017-09-29 11:45)
PROC: 30233K1 Transfusion of Nonautologous Frozen Plasma into Peripheral Vein, Percutaneous Approach (ICD-10-PCS; 2017-09-29 11:45)
PROC: 30233N1 Transfusion of Nonautologous Red Blood Cells into Peripheral Vein, Percutaneous Approach (ICD-10-PCS; 2017-09-29 11:45)
PROC: 05HM33Z Insertion of Infusion Device into Right Internal Jugular Vein, Percutaneous Approach (ICD-10-PCS; 2017-09-29 11:45)
PROC: 0JH60XZ Insertion of Tunneled Vascular Access Device into Chest Subcutaneous Tissue and Fascia, Open Approach (ICD-10-PCS; 2017-09-29 11:45)
PROC: 05PY33Z Removal of Infusion Device from Upper Vein, Percutaneous Approach (ICD-10-PCS; 2017-09-29 11:45)
PROC: 05HM33Z Insertion of Infusion Device into Right Internal Jugular Vein, Percutaneous Approach (ICD-10-PCS; 2017-09-29 11:45)
PROC: 3E04305 Introduction of Other Antineoplastic into Central Vein, Percutaneous Approach (ICD-10-PCS; 2017-09-29 11:45)
DX: M31.0 Hypersensitivity angiitis (principal); J18.8 Other pneumonia, unspecified organism; N17.0 Acute kidney failure with tubular necrosis; E87.2 Acidosis; B37.49 Other urogenital candidiasis; J81.1 Chronic pulmonary edema; E66.01 Morbid (severe) obesity due to excess calories; Z68.38 Body mass index [BMI] 38.0-38.9, adult; Z72.0 Tobacco use; E87.6 Hypokalemia; D50.9 Iron deficiency anemia, unspecified; I12.9 Hypertensive chronic kidney disease with stage 1 through stage 4 chronic kidney disease, or unspecified chronic kidney disease; E88.09 Other disorders of plasma-protein metabolism, not elsewhere classified; D63.1 Anemia in chronic kidney disease; E83.39 Other disorders of phosphorus metabolism; R34 Anuria and oliguria; J44.9 Chronic obstructive pulmonary disease, unspecified; I51.7 Cardiomegaly; R10.13 Epigastric pain; R11.2 Nausea with vomiting, unspecified; R31.9 Hematuria, unspecified; R09.02 Hypoxemia; T38.3X5A Adverse effect of insulin and oral hypoglycemic [antidiabetic] drugs, initial encounter; Y92.239 Unspecified place in hospital as the place of occurrence of the external cause; R73.9 Hyperglycemia, unspecified; N14.1 Nephropathy induced by other drugs, medicaments and biological substances; T50.8X5A Adverse effect of diagnostic agents, initial encounter
CPT/HCPCS: 36430; 36514; 36600; 71045; 71046; 71250; 76705; 76775; 76937; 77012; 80048; 80053; 80069; 81001; 81003; 82247; 82248; 82270; 82550; 82570; 82728; 82784; 82803; 82962; 83010; 83036; 83540; 83615; 83735; 83880; 83935; 83970; 84100; 84155; 84165; 84300; 84703; 85025; 85045; 85378; 85384; 85610; 85730; 86021; 86038; 86157; 86160; 86320; 86480; 86703; 86704; 86706; 86709; 86803; 86850; 86880; 86900; 86901; 86920; 87045; 87081; 87086; 87340; 88305; 88313; 88346; 88348; 88350; 89190; 90935; 93306; 93970; 97110; 97116; 97162; 97530; J9310

== ENCOUNTER 2017-11-07 12:56 | Inpatient (IN) | payer OTHER ==
[2017-11-07] MEDS: SODIUM CHLORIDE 0.9% 1L BAG IV* (13:29)
[2017-11-07 13:35] LABS: ADD MAN DIFF? NO
[2017-11-07 13:43] LABS: ABNORMAL IP MESSAGE 1; EOSINOPHILS % 0.4 % (0.0-7.0); HEMATOCRIT 18.7 % (37.0-47.0); LYMPHOCYTES # 0.4 10^3/ul (0.8-2.9); LYMPHOCYTES % 7.8 % (15.0-51.0); MEAN CORPUSCULAR HEMOGLOBIN 31.2 pg (29.0-33.0); MEAN CORPUSCULAR HGB CONC 33.2 g/dl (32.0-37.0); MEAN PLATELET VOLUME 9.5 fl (7.4-10.4); MONOCYTE # 0.3 10^3/ul (0.3-0.9); MONOCYTES % 6.5 % (0.0-11.0); NEUTROPHIL # 3.9 10^3/ul (1.6-7.5); NEUTROPHILS % 84.7 % (39.0-77.0); PLATELET COUNT 99 10^3/UL (140-415); RED BLOOD COUNT 1.99 10^6/ul (4.20-5.40); RED CELL DISTRIBUTION WIDTH 17.5 % (11.5-14.5)
[2017-11-07 13:43] LABS: WHITE BLOOD COUNT 4.6 10^3/ul (4.8-10.8)
[2017-11-07 13:48] LABS: POSITIVE DIFF @See below
[2017-11-07 13:50] LABS: HEMOGLOBIN 6.2 g/dl (12.0-16.0); PATH REVIEW? YES
[2017-11-07 14:00] LABS: ANION GAP 14 (8-16); BLOOD UREA NITROGEN 61 mg/dl (7-20); CALCIUM 8.6 mg/dl (8.4-10.2); CARBON DIOXIDE 30 mmol/L (21-31); CHLORIDE 101 mmol/L (97-110); CREATININE 7.52 mg/dl (0.44-1.00); GLUCOSE 89 mg/dl (70-220); POTASSIUM 4.4 mmol/L (3.5-5.1); SODIUM 141 mmol/L (135-144)
[2017-11-07 14:03] LABS: INR 0.99; PROTIME 13.2 Sec (11.9-14.9)
[2017-11-07 14:04] LABS: PARTIAL THROMBOPLASTIN TIME 28.4 Sec (25.0-35.0)
[2017-11-07 14:06] LABS: LACTIC ACID 0.9 mmol/L (0.5-2.0)
[2017-11-07 14:17] LABS: ANISOCYTOSIS 1+ (0-0); BAND NEUTROPHILS #M 0.3 10^3/ul (0.0-0.6); BAND NEUTROPHILS % (M) 8 % (0-4); LYMPHOCYTES #M 0.2 10^3/ul (0.8-2.9); LYMPHOCYTES % (M) 6 % (15-51); MICROCYTOSIS 1+ (0-0); MONOCYTES % (M) 2 % (0-11); OVALOCYTES 1+ (0-0); PLATELET ESTIMATE DECREASED; POLYCHROMASIA 2+ (0-0); SCHISTOCYTES 1+ (0-0); SEG NEUT #M 3.9 10^3/ul (1.6-7.5); SEGMENTED NEUTROPHILS (M) % 84 % (39-77); SMUDGE%M 40 % (0-0)
[2017-11-07 15:24] LABS: LACTIC ACID 0.6 mmol/L (0.5-2.0)
[2017-11-07 15:54] LABS: IMMEDIATE SPIN CROSSMATCH 1 2
[2017-11-07] MEDS: SOD CHLORIDE 0.9% 250 ML IV (16:25)
[2017-11-07] MEDS ORDERED: ONDANSETRON 4 MG INJ (16:30)
[2017-11-07] MEDS: ONDANSETRON 4 MG INJ IV (16:38)
[2017-11-07] MEDS: CEFEPIME 1GM/50 ML (PMX) 50 ML IVPB (16:39)
[2017-11-07] MEDS: VANCOMYCIN 1 GM (PMX) 250 ML IVPB (17:22)
[2017-11-07] MEDS ORDERED: ONDANSETRON 4 MG INJ IV (20:30)
[2017-11-07] MEDS ORDERED: ACETAMINOPHEN 325 MG TAB PO (20:30)
[2017-11-07] MEDS: SOD CHLORIDE 0.9% 100 ML (21:03)
[2017-11-07] MEDS: IODIXANOL LOCM 100 ML BTL (21:03)
[2017-11-07 21:24] LABS: LACTIC ACID 0.5 mmol/L (0.5-2.0)
[2017-11-07] MEDS ORDERED: NACL 0.9% 3 ML SYG IV (22:30)
[2017-11-07] MEDS ORDERED: BISACODYL (EC) 5 MG TAB PO (22:30)
[2017-11-07] MEDS ORDERED: morphine 2 MG INJ IV (22:30)
[2017-11-07] MEDS ORDERED: predniSONE 20 MG TAB PO (23:00)
[2017-11-07 23:19] LABS: COMPLEMENT C3 101 mg/dl (88-165); COMPLEMENT C4 39 mg/dl (14-44)
[2017-11-08] MEDS: AMLODIPINE 10 MG TAB PO ×2 (00:02→08:23)
[2017-11-08] MEDS: ONDANSETRON 4 MG INJ IV (00:14)
[2017-11-08] MEDS: CYCLOPHOSPHAMIDE 25 MG PO ×3 (00:18→21:55)
[2017-11-08] MEDS ORDERED: PIPER-TAZO 2.25 GM (PMX) 50 ML IVPB (00:30)
[2017-11-08] MEDS: DIPHENHYDRAMINE 50 MG CAP PO ×2 (00:46→21:45)
[2017-11-08] MEDS: PIPER-TAZO 2.25 GM (PMX) 50 ML IVPB ×2 (00:57→13:28)
[2017-11-08] MEDS ORDERED: VANCOMYCIN IV PER PHARMACY XX (03:00)
[2017-11-08] MEDS: PANTOPRAZOLE 40 MG INJ IV (06:34)
[2017-11-08] MEDS: METHYLPREDNISOLONE 125 MG INJ IV ×4 (06:34→22:01)
[2017-11-08] MEDS ORDERED: predniSONE 20 MG TAB PO (07:55)
[2017-11-08] MEDS: DOCUSATE SODIUM 100 MG CAP PO ×2 (08:23→21:00)
[2017-11-08] MEDS: CALCIUM/VITAMIN D (500/200) TAB PO ×2 (08:23→21:46)
[2017-11-08] MEDS: VANCOMYCIN 750 MG in SOD CHLORIDE 0.9% 150 ML IVPB (08:37)
[2017-11-08] MEDS: CALCIUM ACETATE 667 MG CAP PO ×3 (08:37→17:43)
[2017-11-08 10:35] LABS: ADD MAN DIFF? NO
[2017-11-08 10:38] LABS: WHITE BLOOD COUNT 4.7 10^3/ul (4.8-10.8)
[2017-11-08 10:38] LABS: ABNORMAL IP MESSAGE 1; HEMATOCRIT 21.2 % (37.0-47.0); HEMOGLOBIN 7.1 g/dl (12.0-16.0); LYMPHOCYTES # 0.2 10^3/ul (0.8-2.9); LYMPHOCYTES % 4.5 % (15.0-51.0); MEAN CORPUSCULAR HEMOGLOBIN 31.7 pg (29.0-33.0); MEAN CORPUSCULAR HGB CONC 33.5 g/dl (32.0-37.0); MEAN CORPUSCULAR VOLUME 94.6 fl (82.0-101.0); MEAN PLATELET VOLUME 9.7 fl (7.4-10.4); MONOCYTE # 0.1 10^3/ul (0.3-0.9); MONOCYTES % 2.1 % (0.0-11.0); NEUTROPHIL # 4.3 10^3/ul (1.6-7.5); NEUTROPHILS % 92.8 % (39.0-77.0); PLATELET COUNT 100 10^3/UL (140-415); RED BLOOD COUNT 2.24 10^6/ul (4.20-5.40); RED CELL DISTRIBUTION WIDTH 17.1 % (11.5-14.5)
[2017-11-08 10:49] LABS: POSITIVE DIFF @See below
[2017-11-08 11:04] LABS: LACTATE DEHYDROGENASE 1569 IU/L (313-618)
[2017-11-08 11:08] LABS: IRON 30 ug/dl (35-150)
[2017-11-08 11:17] LABS: % IRON SATURATION 15 % SAT (22-52); TOTAL IRON BINDING CAPACITY 203 ug/dl (241-421)
[2017-11-08 11:32] LABS: ALANINE AMINOTRANSFERASE 38 IU/L (13-69); ALBUMIN 3.2 g/dl (3.3-4.9); ALBUMIN/GLOBULIN RATIO 1.33; ALKALINE PHOSPHATASE 64 IU/L (42-121); ANION GAP 13 (8-16); ASPARTATE AMINO TRANSFERASE 31 IU/L (15-46); BILIRUBIN,INDIRECT 1.8 mg/dl (0-1.1); BILIRUBIN,TOTAL 1.8 mg/dl (0.2-1.3); BLOOD UREA NITROGEN 32 mg/dl (7-20); CALCIUM 9.5 mg/dl (8.4-10.2); CARBON DIOXIDE 30 mmol/L (21-31); CHLORIDE 103 mmol/L (97-110); GLUCOSE 158 mg/dl (70-220); MAGNESIUM 1.9 mg/dl (1.7-2.5); POTASSIUM 4.8 mmol/L (3.5-5.1); SODIUM 141 mmol/L (135-144); TOTAL PROTEIN 5.6 g/dl (6.1-8.1)
[2017-11-08 11:33] LABS: HEPATITIS B SURFACE ANTIGEN NEGATIVE (NEGATIVE)
[2017-11-08] MEDS: ACETAMINOPHEN 325 MG TAB PO (12:00)
[2017-11-08 14:39] LABS: THYROID STIMULATING HORMONE 0.513 MIU/L (0.465-4.680)
[2017-11-08] MEDS: FERROUS SULFATE (EC) 325 MG TAB PO ×2 (14:39→21:46)
[2017-11-08] MEDS: EPOETIN 3000 UNITS/1 ML INJ (ESRD) SC (14:40)
[2017-11-08 16:19] LABS: ABNORMAL IP MESSAGE 1; HEMATOCRIT 19.7 % (37.0-47.0); MEAN CORPUSCULAR HEMOGLOBIN 30.8 pg (29.0-33.0); MEAN CORPUSCULAR HGB CONC 32.5 g/dl (32.0-37.0); MEAN CORPUSCULAR VOLUME 94.7 fl (82.0-101.0); MEAN PLATELET VOLUME 10.3 fl (7.4-10.4); PLATELET COUNT 117 10^3/UL (140-415); RED BLOOD COUNT 2.08 10^6/ul (4.20-5.40); RED CELL DISTRIBUTION WIDTH 17.2 % (11.5-14.5)
[2017-11-08 16:19] LABS: WHITE BLOOD COUNT 4.2 10^3/ul (4.8-10.8)
[2017-11-08 16:33] LABS: ADD MAN DIFF? YES; HEMOGLOBIN 6.4 g/dl (12.0-16.0); POSITIVE DIFF @See below
[2017-11-08 17:01] LABS: ANISOCYTOSIS 1+ (0-0); BAND NEUTROPHILS % (M) 1 % (0-4); LYMPHOCYTES #M 0.2 10^3/ul (0.8-2.9); LYMPHOCYTES % (M) 6 % (15-51); MICROCYTOSIS 1+ (0-0); MONOCYTES % (M) 1 % (0-11); PLATELET ESTIMATE DECREASED; POLYCHROMASIA 1+ (0-0); SEG NEUT #M 3.9 10^3/ul (1.6-7.5); SEGMENTED NEUTROPHILS (M) % 92 % (39-77); SMUDGE%M 1 % (0-0)
[2017-11-08] MEDS ORDERED: DIPHENHYDRAMINE 50 MG INJ IV (20:00)
[2017-11-08] MEDS ORDERED: EPINEPHrine 1 MG INJ IM (20:30)
[2017-11-08] MEDS ORDERED: MEPERIDINE 50 MG INJ IV ×2 (20:30)
[2017-11-08 21:22] LABS: ADD MAN DIFF? NO
[2017-11-08 21:23] LABS: ABNORMAL IP MESSAGE 1; HEMATOCRIT 18.9 % (37.0-47.0); LYMPHOCYTES # 0.2 10^3/ul (0.8-2.9); LYMPHOCYTES % 5.1 % (15.0-51.0); MEAN CORPUSCULAR HEMOGLOBIN 32.7 pg (29.0-33.0); MEAN CORPUSCULAR HGB CONC 33.9 g/dl (32.0-37.0); MEAN CORPUSCULAR VOLUME 96.4 fl (82.0-101.0); MEAN PLATELET VOLUME 9.7 fl (7.4-10.4); MONOCYTE # 0.2 10^3/ul (0.3-0.9); MONOCYTES % 4.4 % (0.0-11.0); NEUTROPHIL # 3.7 10^3/ul (1.6-7.5); NEUTROPHILS % 89.8 % (39.0-77.0); PLATELET COUNT 101 10^3/UL (140-415); RED BLOOD COUNT 1.96 10^6/ul (4.20-5.40); RED CELL DISTRIBUTION WIDTH 17.4 % (11.5-14.5)
[2017-11-08 21:23] LABS: WHITE BLOOD COUNT 4.1 10^3/ul (4.8-10.8)
[2017-11-08 21:35] LABS: HEMOGLOBIN 6.4 g/dl (12.0-16.0); POSITIVE DIFF @See below
[2017-11-08] MEDS: ACETAMINOPHEN 500 MG TAB PO (21:45)
[2017-11-08] MEDS ORDERED: RITUXIMAB IV (22:30)
[2017-11-08] MEDS ORDERED: SOD CHLORIDE 0.9% IV (22:30)
[2017-11-09] MEDS: METHYLPREDNISOLONE 125 MG INJ IV ×3 (06:41→21:10)
[2017-11-09] MEDS: PANTOPRAZOLE 40 MG INJ IV (06:41)
[2017-11-09] MEDS: DOCUSATE SODIUM 100 MG CAP PO ×2 (09:00→21:10)
[2017-11-09] MEDS: CALCIUM ACETATE 667 MG CAP PO ×3 (09:16→17:37)
[2017-11-09] MEDS: FERROUS SULFATE (EC) 325 MG TAB PO (09:17)
[2017-11-09] MEDS: TRIMETHOPRIM/SULFAMETHOX (DS) TAB PO (09:17)
[2017-11-09] MEDS: AMLODIPINE 10 MG TAB PO (09:17)
[2017-11-09] MEDS: CALCIUM/VITAMIN D (500/200) TAB PO ×2 (09:18→21:10)
[2017-11-09] MEDS: CYCLOPHOSPHAMIDE 25 MG PO ×2 (09:22→21:09)
[2017-11-09] MEDS ORDERED: MEPERIDINE 50 MG INJ IV (10:00)
[2017-11-09] MEDS ORDERED: RITUXIMAB IV (11:00)
[2017-11-09] MEDS ORDERED: SOD CHLORIDE 0.9% IV (11:00)
[2017-11-09 11:46] LABS: ADD MAN DIFF? NO
[2017-11-09 11:56] LABS: WHITE BLOOD COUNT 5.1 10^3/ul (4.8-10.8)
[2017-11-09 11:56] LABS: ABNORMAL IP MESSAGE 1; BASOPHILS % 0.2 % (0.0-2.0); HEMATOCRIT 23.9 % (37.0-47.0); HEMOGLOBIN 7.9 g/dl (12.0-16.0); LYMPHOCYTES # 0.2 10^3/ul (0.8-2.9); LYMPHOCYTES % 2.9 % (15.0-51.0); MEAN CORPUSCULAR HEMOGLOBIN 31.3 pg (29.0-33.0); MEAN CORPUSCULAR HGB CONC 33.1 g/dl (32.0-37.0); MEAN CORPUSCULAR VOLUME 94.8 fl (82.0-101.0); MEAN PLATELET VOLUME 9.9 fl (7.4-10.4); MONOCYTE # 0.2 10^3/ul (0.3-0.9); MONOCYTES % 3.1 % (0.0-11.0); NEUTROPHIL # 4.7 10^3/ul (1.6-7.5); NEUTROPHILS % 92.6 % (39.0-77.0); PLATELET COUNT 122 10^3/UL (140-415); RED BLOOD COUNT 2.52 10^6/ul (4.20-5.40); RED CELL DISTRIBUTION WIDTH 17.7 % (11.5-14.5)
[2017-11-09 12:08] LABS: ANION GAP 13 (8-16); BLOOD UREA NITROGEN 70 mg/dl (7-20); CALCIUM 9.5 mg/dl (8.4-10.2); CARBON DIOXIDE 27 mmol/L (21-31); CHLORIDE 103 mmol/L (97-110); CREATININE 6.77 mg/dl (0.44-1.00); GLUCOSE 187 mg/dl (70-220); POTASSIUM 5.3 mmol/L (3.5-5.1); SODIUM 138 mmol/L (135-144)
[2017-11-09 12:14] LABS: POSITIVE DIFF @See below
[2017-11-09] MEDS: ONDANSETRON 4 MG INJ IV (13:02)
[2017-11-09] MEDS: DIPHENHYDRAMINE 50 MG CAP PO (13:18)
[2017-11-09] MEDS: ACETAMINOPHEN 500 MG TAB PO (13:19)
[2017-11-09] MEDS: SOD CHLORIDE 0.9% IV (13:41)
[2017-11-09] MEDS: RITUXIMAB IV (13:41)
[2017-11-09] MEDS: MULTIVIT/CA CARB/B CMPLX/FA TAB PO (15:14)
[2017-11-09] MEDS: FUROSEMIDE 40 MG TAB PO (15:14)
[2017-11-09] MEDS ORDERED: morphine LIQ (10 MG/5 ML) CUP PO (17:00)
[2017-11-09] MEDS ORDERED: ALBUMIN HUMAN 25% 50 ML IV (18:00)
[2017-11-09] MEDS ORDERED: SODIUM CHLORIDE 0.9% 1L BAG IV (18:00)
[2017-11-09] MEDS ORDERED: HEPARIN 1000 UNITS/ML 10 ML INJ CATHETER (18:00)
[2017-11-09 18:52] LABS: HAPTOGLOBIN <15 mg/dL (43-212)
[2017-11-10] MEDS: PANTOPRAZOLE 40 MG INJ IV (05:40)
[2017-11-10] MEDS: METHYLPREDNISOLONE 125 MG INJ IV ×2 (05:41→20:07)
[2017-11-10] MEDS: DOCUSATE SODIUM 100 MG CAP PO ×2 (08:22→20:11)
[2017-11-10] MEDS: CALCIUM/VITAMIN D (500/200) TAB PO ×2 (08:22→20:09)
[2017-11-10] MEDS: MULTIVIT/CA CARB/B CMPLX/FA TAB PO (08:22)
[2017-11-10] MEDS: CALCIUM ACETATE 667 MG CAP PO ×3 (08:22→17:13)
[2017-11-10] MEDS: FUROSEMIDE 40 MG TAB PO (08:24)
[2017-11-10] MEDS: AMLODIPINE 10 MG TAB PO (08:25)
[2017-11-10] MEDS: CYCLOPHOSPHAMIDE 25 MG PO ×2 (08:28→20:16)
[2017-11-10 09:37] LABS: WHITE BLOOD COUNT 6.8 10^3/ul (4.8-10.8)
[2017-11-10 09:37] LABS: ABNORMAL IP MESSAGE 1; ADD MAN DIFF? NO; BASOPHILS % 0.1 % (0.0-2.0); HEMATOCRIT 23.5 % (37.0-47.0); HEMOGLOBIN 7.6 g/dl (12.0-16.0); LYMPHOCYTES # 0.1 10^3/ul (0.8-2.9); LYMPHOCYTES % 1.9 % (15.0-51.0); MEAN CORPUSCULAR HEMOGLOBIN 30.8 pg (29.0-33.0); MEAN CORPUSCULAR HGB CONC 32.3 g/dl (32.0-37.0); MEAN CORPUSCULAR VOLUME 95.1 fl (82.0-101.0); MEAN PLATELET VOLUME 10.3 fl (7.4-10.4); MONOCYTE # 0.2 10^3/ul (0.3-0.9); NEUTROPHIL # 6.3 10^3/ul (1.6-7.5); NEUTROPHILS % 93.4 % (39.0-77.0); PLATELET COUNT 148 10^3/UL (140-415); RED BLOOD COUNT 2.47 10^6/ul (4.20-5.40); RED CELL DISTRIBUTION WIDTH 17.3 % (11.5-14.5); RETICULOCYTE COUNT # 0.133 X10^6 (0.020-0.110); RETICULOCYTE COUNT % 5.4 % (0.5-1.5); RETICULOCYTE RBC 2.47
[2017-11-10 10:03] LABS: LACTATE DEHYDROGENASE 1363 IU/L (313-618)
[2017-11-10 10:04] LABS: POSITIVE DIFF @See below
[2017-11-10] MEDS: ONDANSETRON 4 MG INJ IV (11:43)
[2017-11-10] MEDS: ACETAMINOPHEN 325 MG TAB PO ×2 (12:34→20:06)
[2017-11-10] MEDS: SOD FERRIC GLUC COMPLX 125 MG in SOD CHLORIDE 0.9% 100 ML IVPB (17:14)
[2017-11-10] MEDS: EPOETIN 3000 UNITS/1 ML INJ (ESRD) SC (17:16)
[2017-11-11] MEDS: PANTOPRAZOLE 40 MG INJ IV (06:48)
[2017-11-11] MEDS: CALCIUM ACETATE 667 MG CAP PO ×3 (07:35→17:25)
[2017-11-11] MEDS: ONDANSETRON 4 MG INJ IV (08:20)
[2017-11-11] MEDS: FUROSEMIDE 40 MG TAB PO (08:23)
[2017-11-11] MEDS: AMLODIPINE 10 MG TAB PO (08:24)
[2017-11-11] MEDS: MULTIVIT/CA CARB/B CMPLX/FA TAB PO (08:24)
[2017-11-11] MEDS: DOCUSATE SODIUM 100 MG CAP PO ×2 (08:24→20:55)
[2017-11-11] MEDS: CALCIUM/VITAMIN D (500/200) TAB PO ×2 (08:25→20:53)
[2017-11-11] MEDS: METHYLPREDNISOLONE 125 MG INJ IV ×2 (08:27→20:56)
[2017-11-11] MEDS: CYCLOPHOSPHAMIDE 25 MG PO ×2 (08:38→21:25)
[2017-11-11] MEDS: TRIMETHOPRIM/SULFAMETHOX (DS) TAB PO (08:38)
[2017-11-11] MEDS: ONDANSETRON 4 MG TAB PO ×2 (14:21→20:53)
[2017-11-11] MEDS: SOD FERRIC GLUC COMPLX 125 MG in SOD CHLORIDE 0.9% 100 ML IVPB (17:26)
[2017-11-11] MEDS ORDERED: ALBUMIN HUMAN 25% 50 ML IV (18:00)
[2017-11-11] MEDS ORDERED: SODIUM CHLORIDE 0.9% 1L BAG IV (18:00)
[2017-11-11] MEDS: ACETAMINOPHEN 325 MG TAB PO (20:53)
[2017-11-12] MEDS: PANTOPRAZOLE 40 MG INJ IV (06:01)
[2017-11-12] MEDS: MULTIVIT/CA CARB/B CMPLX/FA TAB PO (08:01)
[2017-11-12] MEDS: CALCIUM ACETATE 667 MG CAP PO ×3 (08:03→17:52)
[2017-11-12] MEDS: CYCLOPHOSPHAMIDE 25 MG PO ×2 (08:03→21:21)
[2017-11-12] MEDS: CALCIUM/VITAMIN D (500/200) TAB PO ×2 (08:05→20:04)
[2017-11-12] MEDS: DOCUSATE SODIUM 100 MG CAP PO ×2 (08:05→20:04)
[2017-11-12] MEDS: METHYLPREDNISOLONE 125 MG INJ IV ×2 (08:05→20:04)
[2017-11-12] MEDS: FUROSEMIDE 40 MG TAB PO (08:10)
[2017-11-12] MEDS: AMLODIPINE 10 MG TAB PO (08:10)
[2017-11-12] MEDS: ONDANSETRON 4 MG TAB PO (09:01)
[2017-11-12 09:55] LABS: ABNORMAL IP MESSAGE 1; HEMATOCRIT 23.4 % (37.0-47.0); HEMOGLOBIN 7.8 g/dl (12.0-16.0); MEAN CORPUSCULAR HEMOGLOBIN 31.3 pg (29.0-33.0); MEAN CORPUSCULAR HGB CONC 33.3 g/dl (32.0-37.0); MEAN PLATELET VOLUME 10.3 fl (7.4-10.4); NUCLEATED RED BLOOD CELLS% 0.4 /100WBC (0.0-0.0); PLATELET COUNT 137 10^3/UL (140-415); RED BLOOD COUNT 2.49 10^6/ul (4.20-5.40)
[2017-11-12 09:59] LABS: POSITIVE DIFF @See below
[2017-11-12 10:00] LABS: ADD MAN DIFF? YES
[2017-11-12 10:17] LABS: ALANINE AMINOTRANSFERASE 82 IU/L (13-69); ALBUMIN 3.1 g/dl (3.3-4.9); ALKALINE PHOSPHATASE 68 IU/L (42-121); ANION GAP 14 (8-16); ASPARTATE AMINO TRANSFERASE 31 IU/L (15-46); BILIRUBIN,INDIRECT 1.2 mg/dl (0-1.1); BILIRUBIN,TOTAL 1.2 mg/dl (0.2-1.3); BLOOD UREA NITROGEN 94 mg/dl (7-20); CARBON DIOXIDE 27 mmol/L (21-31); CHLORIDE 101 mmol/L (97-110); GLUCOSE 92 mg/dl (70-220); SODIUM 136 mmol/L (135-144)
[2017-11-12 10:18] LABS: ALBUMIN/GLOBULIN RATIO 1.47; TOTAL PROTEIN 5.2 g/dl (6.1-8.1)
[2017-11-12 10:27] LABS: CREATININE 6.91 mg/dl (0.44-1.00)
[2017-11-12 11:01] LABS: ANISOCYTOSIS 1+ (0-0); ERYTHROBLAST% (NRBC) (M) 1 % (0-0); LYMPHOCYTES #M 0.3 10^3/ul (0.8-2.9); LYMPHOCYTES % (M) 6 % (15-51); MICROCYTOSIS 1+ (0-0); MONOCYTE #M 0.3 10^3/ul (0.3-0.9); MONOCYTES % (M) 6 % (0-11); MYELOCYTES % (M) 1 % (0-0); PLATELET ESTIMATE DECREASED; POLYCHROMASIA 1+ (0-0); PROMYELOCYTES % (M) 1 % (0-0); SEGMENTED NEUTROPHILS (M) % 86 % (39-77); SMUDGE%M 14 % (0-0)
[2017-11-12] MEDS: HEPARIN 1000 UNITS/ML 10 ML INJ CATHETER (13:08)
[2017-11-12] MEDS: SOD FERRIC GLUC COMPLX 125 MG in SOD CHLORIDE 0.9% 100 ML IVPB (18:04)
[2017-11-12] MEDS: EPOETIN 3000 UNITS/1 ML INJ (ESRD) SC (18:15)
[2017-11-13] MEDS: PANTOPRAZOLE 40 MG INJ IV (05:42)
[2017-11-13] MEDS: METHYLPREDNISOLONE 125 MG INJ IV ×2 (08:30→22:01)
[2017-11-13] MEDS: MULTIVIT/CA CARB/B CMPLX/FA TAB PO (08:31)
[2017-11-13] MEDS: CYCLOPHOSPHAMIDE 25 MG PO ×2 (08:31→22:12)
[2017-11-13] MEDS: CALCIUM ACETATE 667 MG CAP PO ×3 (08:33→18:01)
[2017-11-13] MEDS: FUROSEMIDE 40 MG TAB PO (08:33)
[2017-11-13] MEDS: AMLODIPINE 10 MG TAB PO (08:33)
[2017-11-13] MEDS: CALCIUM/VITAMIN D (500/200) TAB PO ×2 (08:34→22:02)
[2017-11-13] MEDS: DOCUSATE SODIUM 100 MG CAP PO ×2 (08:34→22:02)
[2017-11-13] MEDS: ONDANSETRON 4 MG INJ IV ×2 (08:34→16:36)
[2017-11-13] MEDS: SOD FERRIC GLUC COMPLX 125 MG in SOD CHLORIDE 0.9% 100 ML IVPB (16:36)
[2017-11-13 16:39] LABS: ANION GAP 13 (8-16); BLOOD UREA NITROGEN 84 mg/dl (7-20); CALCIUM 9.4 mg/dl (8.4-10.2); CARBON DIOXIDE 30 mmol/L (21-31); CHLORIDE 97 mmol/L (97-110); GLUCOSE 120 mg/dl (70-220); POTASSIUM 5.8 mmol/L (3.5-5.1); SODIUM 134 mmol/L (135-144)
[2017-11-13 16:45] LABS: CREATININE 5.55 mg/dl (0.44-1.00)
[2017-11-13] MEDS: NA POLYST SULFON 15 GM/60 ML BTL PO (18:01)
[2017-11-14 05:14] LABS: ABNORMAL IP MESSAGE 1; HEMATOCRIT 22.7 % (37.0-47.0); HEMOGLOBIN 7.6 g/dl (12.0-16.0); MEAN CORPUSCULAR HEMOGLOBIN 30.4 pg (29.0-33.0); MEAN CORPUSCULAR HGB CONC 33.5 g/dl (32.0-37.0); MEAN CORPUSCULAR VOLUME 90.8 fl (82.0-101.0); MEAN PLATELET VOLUME 10.5 fl (7.4-10.4); NUCLEATED RED BLOOD CELLS% 0.7 /100WBC (0.0-0.0); PLATELET COUNT 118 10^3/UL (140-415); RED CELL DISTRIBUTION WIDTH 16.4 % (11.5-14.5)
[2017-11-14 05:14] LABS: WHITE BLOOD COUNT 5.9 10^3/ul (4.8-10.8)
[2017-11-14 05:33] LABS: ADD MAN DIFF? YES; POSITIVE DIFF @See below
[2017-11-14] MEDS: ONDANSETRON 4 MG INJ IV ×3 (05:35→19:19)
[2017-11-14] MEDS: PANTOPRAZOLE 40 MG INJ IV (05:35)
[2017-11-14 05:46] LABS: ANION GAP 18 (8-16); BLOOD UREA NITROGEN 103 mg/dl (7-20); CALCIUM 9.1 mg/dl (8.4-10.2); CARBON DIOXIDE 28 mmol/L (21-31); CHLORIDE 96 mmol/L (97-110); GLUCOSE 124 mg/dl (70-220); POTASSIUM 5.6 mmol/L (3.5-5.1); SODIUM 136 mmol/L (135-144)
[2017-11-14 05:52] LABS: CREATININE 6.41 mg/dl (0.44-1.00)
[2017-11-14] MEDS: FUROSEMIDE 40 MG TAB PO (07:54)
[2017-11-14] MEDS: AMLODIPINE 10 MG TAB PO (07:54)
[2017-11-14] MEDS: CALCIUM/VITAMIN D (500/200) TAB PO ×2 (08:16→20:21)
[2017-11-14] MEDS: CALCIUM ACETATE 667 MG CAP PO ×3 (08:16→17:28)
[2017-11-14] MEDS: MULTIVIT/CA CARB/B CMPLX/FA TAB PO (08:16)
[2017-11-14] MEDS: DOCUSATE SODIUM 100 MG CAP PO ×2 (08:16→21:00)
[2017-11-14] MEDS: TRIMETHOPRIM/SULFAMETHOX (DS) TAB PO (08:16)
[2017-11-14] MEDS: METHYLPREDNISOLONE 125 MG INJ IV (08:17)
[2017-11-14] MEDS: CYCLOPHOSPHAMIDE 25 MG PO ×2 (08:20→20:28)
[2017-11-14 09:15] LABS: ANISOCYTOSIS 1+ (0-0); BAND NEUTROPHILS #M 0.2 10^3/ul (0.0-0.6); BAND NEUTROPHILS % (M) 4 % (0-4); ERYTHROBLAST% (NRBC) (M) 1 % (0-0); LYMPHOCYTES #M 0.1 10^3/ul (0.8-2.9); LYMPHOCYTES % (M) 2 % (15-51); MICROCYTOSIS 1+ (0-0); PLATELET ESTIMATE DECREASED; POLYCHROMASIA 1+ (0-0); SCHISTOCYTES 1+ (0-0); SEG NEUT #M 5.6 10^3/ul (1.6-7.5); SEGMENTED NEUTROPHILS (M) % 94 % (39-77); SMUDGE%M 8 % (0-0)
[2017-11-14] MEDS: HEPARIN 1000 UNITS/ML 10 ML INJ CATHETER (14:30)
[2017-11-14] MEDS ORDERED: SOD CHLORIDE 0.9% 1,000 ML IV (14:41)
[2017-11-14] MEDS ORDERED: HEPARIN 1000 UNITS/ML 10 ML INJ CATHETER (15:00)
[2017-11-14] MEDS ORDERED: ALBUMIN HUMAN 25% 50 ML IV (15:00)
[2017-11-14] MEDS: SOD FERRIC GLUC COMPLX 125 MG in SOD CHLORIDE 0.9% 100 ML IVPB (17:28)
[2017-11-14] MEDS: FOLIC ACID 1 MG TAB PO (20:21)
[2017-11-15] MEDS: PANTOPRAZOLE 40 MG INJ IV (06:46)
[2017-11-15] MEDS: ONDANSETRON 4 MG INJ IV (06:46)
[2017-11-15] MEDS: CYCLOPHOSPHAMIDE 25 MG PO (08:34)
[2017-11-15 08:36] LABS: ABNORMAL IP MESSAGE 1; HEMOGLOBIN 7.8 g/dl (12.0-16.0); MEAN CORPUSCULAR HEMOGLOBIN 31.5 pg (29.0-33.0); MEAN CORPUSCULAR HGB CONC 33.9 g/dl (32.0-37.0); MEAN CORPUSCULAR VOLUME 92.7 fl (82.0-101.0); MEAN PLATELET VOLUME 10.4 fl (7.4-10.4); PLATELET COUNT 98 10^3/UL (140-415); RED BLOOD COUNT 2.48 10^6/ul (4.20-5.40); RED CELL DISTRIBUTION WIDTH 17.2 % (11.5-14.5); RETICULOCYTE COUNT # 0.231 X10^6 (0.020-0.110); RETICULOCYTE COUNT % 9.2 % (0.5-1.5)
[2017-11-15 08:36] LABS: WHITE BLOOD COUNT 5.2 10^3/ul (4.8-10.8)
[2017-11-15 08:39] LABS: ADD MAN DIFF? YES; POSITIVE DIFF @See below
[2017-11-15] MEDS: CALCIUM ACETATE 667 MG CAP PO ×2 (08:39→13:02)
[2017-11-15] MEDS: FOLIC ACID 1 MG TAB PO (08:40)
[2017-11-15] MEDS: CALCIUM/VITAMIN D (500/200) TAB PO (08:40)
[2017-11-15] MEDS: MULTIVIT/CA CARB/B CMPLX/FA TAB PO (08:41)
[2017-11-15] MEDS: FUROSEMIDE 40 MG TAB PO (08:41)
[2017-11-15] MEDS: predniSONE 20 MG TAB PO (08:42)
[2017-11-15] MEDS: DOCUSATE SODIUM 100 MG CAP PO (08:42)
[2017-11-15 09:00] LABS: BILIRUBIN,INDIRECT 1.5 mg/dl (0-1.1); BILIRUBIN,TOTAL 1.5 mg/dl (0.2-1.3)
[2017-11-15 09:02] LABS: ANION GAP 12 (8-16); BLOOD UREA NITROGEN 84 mg/dl (7-20); CALCIUM 8.7 mg/dl (8.4-10.2); CARBON DIOXIDE 29 mmol/L (21-31); CHLORIDE 99 mmol/L (97-110); GLUCOSE 76 mg/dl (70-220); POTASSIUM 5.1 mmol/L (3.5-5.1); SODIUM 135 mmol/L (135-144)
[2017-11-15 09:09] LABS: CREATININE 5.93 mg/dl (0.44-1.00)
[2017-11-15 09:34] LABS: ANISOCYTOSIS 2+ (0-0); BAND NEUTROPHILS % (M) 1 % (0-4); EOSINOPHILS % (M) 1 % (0-7); HYPOCHROMASIA 1+ (0-0); LYMPHOCYTES #M 0.3 10^3/ul (0.8-2.9); LYMPHOCYTES % (M) 6 % (15-51); MICROCYTOSIS 2+ (0-0); MONOCYTE #M 0.2 10^3/ul (0.3-0.9); MONOCYTES % (M) 5 % (0-11); PLATELET ESTIMATE DECREASED; POLYCHROMASIA 1+ (0-0); REACTIVE LYMPHOCYTES% (M) 1 % (0-0); SEG NEUT #M 4.5 10^3/ul (1.6-7.5); SEGMENTED NEUTROPHILS (M) % 86 % (39-77); SMUDGE%M 4 % (0-0); TARGET CELLS 1+ (0-0)
[2017-11-15] MEDS: AMLODIPINE 10 MG TAB PO (13:02)
[2017-11-16 16:47] LABS: HAPTOGLOBIN <15 mg/dL (43-212)
== END 2017-11-15 14:35 | disposition home or self-care (01) | DRG 545 ==
LOC: TEL 21:53 → MS1 11-12 16:30 → E/R 12:56 → TEL 20:11
PROC: 30233N1 Transfusion of Nonautologous Red Blood Cells into Peripheral Vein, Percutaneous Approach (ICD-10-PCS; 2017-11-07)
PROC: 5A1D70Z Performance of Urinary Filtration, Intermittent, Less than 6 Hours Per Day (ICD-10-PCS; principal; 2017-11-08)
DX: M31.0 Hypersensitivity angiitis (principal); N18.6 End stage renal disease; D61.810 Antineoplastic chemotherapy induced pancytopenia; I12.0 Hypertensive chronic kidney disease with stage 5 chronic kidney disease or end stage renal disease; N17.9 Acute kidney failure, unspecified; D59.1 Other autoimmune hemolytic anemias; E87.5 Hyperkalemia; D63.1 Anemia in chronic kidney disease; E66.9 Obesity, unspecified; R06.03 Acute respiratory distress; R60.9 Edema, unspecified; Z68.36 Body mass index [BMI] 36.0-36.9, adult; T45.1X5A Adverse effect of antineoplastic and immunosuppressive drugs, initial encounter; Z99.2 Dependence on renal dialysis; Z87.891 Personal history of nicotine dependence; Z79.52 Long term (current) use of systemic steroids
CPT/HCPCS: 36415; 36430; 71045; 71275; 80048; 80053; 82247; 82248; 82728; 83010; 83036; 83051; 83540; 83605; 83615; 83735; 84443; 84484; 85025; 85045; 85610; 85730; 86160; 86850; 86900; 86901; 86920; 87040; 87340; 90935; 93005; 93970; 96365; 96366; 96367; 96375; 97163; 99291-25; J9310

== ENCOUNTER 2017-11-20 09:39 | Emergency (ER) | payer OTHER ==
[2017-11-20 10:32] LABS: ADD MAN DIFF? NO
[2017-11-20 10:35] LABS: ABNORMAL IP MESSAGE 1; HEMATOCRIT 25.4 % (37.0-47.0); HEMOGLOBIN 8.4 g/dl (12.0-16.0); LYMPHOCYTES # 0.2 10^3/ul (0.8-2.9); LYMPHOCYTES % 3.2 % (15.0-51.0); MEAN CORPUSCULAR HEMOGLOBIN 32.3 pg (29.0-33.0); MEAN CORPUSCULAR HGB CONC 33.1 g/dl (32.0-37.0); MEAN CORPUSCULAR VOLUME 97.7 fl (82.0-101.0); MEAN PLATELET VOLUME 11.4 fl (7.4-10.4); MONOCYTE # 0.3 10^3/ul (0.3-0.9); NEUTROPHIL # 4.6 10^3/ul (1.6-7.5); NEUTROPHILS % 86.7 % (39.0-77.0); NUCLEATED RED BLOOD CELLS% 0.4 /100WBC (0.0-0.0); PLATELET COUNT 117 10^3/UL (140-415); RED CELL DISTRIBUTION WIDTH 19.2 % (11.5-14.5)
[2017-11-20 10:35] LABS: WHITE BLOOD COUNT 5.3 10^3/ul (4.8-10.8)
[2017-11-20 10:48] LABS: POSITIVE DIFF @See below
[2017-11-20 11:07] LABS: ANION GAP 15 (8-16)
[2017-11-20 11:12] LABS: BLOOD UREA NITROGEN 56 mg/dl (7-20); CALCIUM 8.8 mg/dl (8.4-10.2); CARBON DIOXIDE 28 mmol/L (21-31); CHLORIDE 98 mmol/L (97-110); CREATININE 5.74 mg/dl (0.44-1.00); GLUCOSE 163 mg/dl (70-220); SODIUM 136 mmol/L (135-144)
[2017-11-20 11:14] LABS: POTASSIUM 5.2 mmol/L (3.5-5.1)
[2017-11-20] MEDS: NA POLYST SULFON 15 GM/60 ML BTL PO (11:52)
== END 2017-11-20 12:21 | disposition home or self-care (01) ==
LOC: E/R 09:39
DX: D64.9 Anemia, unspecified (principal); E87.5 Hyperkalemia; N18.6 End stage renal disease; M31.0 Hypersensitivity angiitis; J44.9 Chronic obstructive pulmonary disease, unspecified; I12.0 Hypertensive chronic kidney disease with stage 5 chronic kidney disease or end stage renal disease
CPT/HCPCS: 36415; 80048; 85025; 86850; 86900; 86901; 93005; 99284-25

== ENCOUNTER 2017-11-30 10:19 | Emergency (ER) | payer OTHER ==
[2017-11-30] MEDS: ONDANSETRON 4 MG INJ IV (11:14)
[2017-11-30] MEDS: SOD CHLORIDE 0.9% 1,000 ML IV (11:14)
[2017-11-30] MEDS: MECLIZINE 12.5 MG TAB PO (11:14)
[2017-11-30 11:40] LABS: ABNORMAL IP MESSAGE 1; HEMATOCRIT 25.5 % (37.0-47.0); HEMOGLOBIN 8.4 g/dl (12.0-16.0); MEAN CORPUSCULAR HEMOGLOBIN 32.8 pg (29.0-33.0); MEAN CORPUSCULAR HGB CONC 32.9 g/dl (32.0-37.0); MEAN CORPUSCULAR VOLUME 99.6 fl (82.0-101.0); PLATELET COUNT 64 10^3/UL (140-415); RED BLOOD COUNT 2.56 10^6/ul (4.20-5.40); RED CELL DISTRIBUTION WIDTH 19.3 % (11.5-14.5)
[2017-11-30 11:40] LABS: WHITE BLOOD COUNT 0.7 10^3/ul (4.8-10.8)
[2017-11-30 11:46] LABS: POSITIVE DIFF @See below
[2017-11-30 11:48] LABS: ADD MAN DIFF? YES; PATH REVIEW? YES-PATH TO CONFIRM
[2017-11-30 12:00] LABS: INR 1.02; PROTIME 13.5 Sec (11.9-14.9); PT RATIO 1.1
[2017-11-30 12:01] LABS: PARTIAL THROMBOPLASTIN TIME 23.7 Sec (23.0-35.0)
[2017-11-30 12:06] LABS: ALANINE AMINOTRANSFERASE 49 IU/L (13-69); ALBUMIN 2.9 g/dl (3.3-4.9); ALKALINE PHOSPHATASE 59 IU/L (42-121); ANION GAP 15 (8-16); ASPARTATE AMINO TRANSFERASE 25 IU/L (15-46); BILIRUBIN,INDIRECT 0.6 mg/dl (0-1.1); BILIRUBIN,TOTAL 0.6 mg/dl (0.2-1.3); BLOOD UREA NITROGEN 58 mg/dl (7-20); CALCIUM 8.9 mg/dl (8.4-10.2); CARBON DIOXIDE 32 mmol/L (21-31); CHLORIDE 96 mmol/L (97-110); CREATININE 6.12 mg/dl (0.44-1.00); GLUCOSE 118 mg/dl (70-220); POTASSIUM 4.6 mmol/L (3.5-5.1); SODIUM 138 mmol/L (135-144); TOTAL PROTEIN 5.3 g/dl (6.1-8.1)
[2017-11-30 12:16] LABS: TROPONIN-I 0.036 ng/ml (0.000-0.120)
== END 2017-11-30 13:51 | disposition home or self-care (01) ==
LOC: FTE 10:19 → E/R 13:51
DX: D61.818 Other pancytopenia (principal); J44.9 Chronic obstructive pulmonary disease, unspecified; I12.0 Hypertensive chronic kidney disease with stage 5 chronic kidney disease or end stage renal disease; N18.6 End stage renal disease; R11.10 Vomiting, unspecified; Z87.891 Personal history of nicotine dependence
CPT/HCPCS: 36415; 70450; 80053; 84484; 85025; 85610; 85730; 86850; 86900; 86901; 93005; 96374; 99285-25

== ENCOUNTER 2018-02-20 10:07 | Inpatient (IN) | payer MEDICARE, OTHER ==
[2018-02-20 14:03] LABS: ADD MAN DIFF? NO
[2018-02-20 14:10] LABS: WHITE BLOOD COUNT 10.8 10^3/ul (4.8-10.8)
[2018-02-20 14:10] LABS: BASOPHILS % 0.2 % (0.0-2.0); HEMATOCRIT 37.1 % (37.0-47.0); HEMOGLOBIN 12.2 g/dl (12.0-16.0); LYMPHOCYTES % 8.8 % (15.0-51.0); MEAN CORPUSCULAR HEMOGLOBIN 33.8 pg (29.0-33.0); MEAN CORPUSCULAR HGB CONC 32.9 g/dl (32.0-37.0); MEAN CORPUSCULAR VOLUME 102.8 fl (82.0-101.0); MEAN PLATELET VOLUME 9.1 fl (7.4-10.4); MONOCYTE # 0.4 10^3/ul (0.3-0.9); MONOCYTES % 3.9 % (0.0-11.0); NEUTROPHIL # 9.2 10^3/ul (1.6-7.5); NEUTROPHILS % 85.2 % (39.0-77.0); PLATELET COUNT 302 10^3/UL (140-415); RED BLOOD COUNT 3.61 10^6/ul (4.20-5.40); RED CELL DISTRIBUTION WIDTH 14.1 % (11.5-14.5)
[2018-02-20 14:30] LABS: INR 0.92; PROTIME 12.4 Sec (11.9-14.9)
[2018-02-20 14:31] LABS: PARTIAL THROMBOPLASTIN TIME 26.7 Sec (23.0-35.0)
[2018-02-20 14:32] LABS: ANION GAP 21 (5-13); CALCIUM 10.4 mg/dl (8.4-10.2); CARBON DIOXIDE 21 mmol/L (21-31); CHLORIDE 91 mmol/L (97-110); GLUCOSE 108 mg/dl (70-220); SODIUM 133 mmol/L (135-144)
[2018-02-20 14:38] LABS: Estimated GFR 5 mL/min (>60)
[2018-02-20 14:39] LABS: BLOOD UREA NITROGEN 122 mg/dl (7-20)
[2018-02-20 14:41] LABS: CREATININE 8.75 mg/dl (0.44-1.00)
[2018-02-20] MEDS ORDERED: LIDOCAINE 2% (MDV) 20 ML INJ ×2 (15:06→15:58)
[2018-02-20] MEDS ORDERED: HEPARIN 1000 UNITS/ML 10 ML INJ (15:06)
[2018-02-20] MEDS ORDERED: HEPARIN 1000 UNITS/NS (A-LINE) 1,000 ML (15:06)
[2018-02-20] MEDS ORDERED: MIDAZOLAM 1 MG/ML 2 ML INJ (15:19)
[2018-02-20] MEDS ORDERED: FENTAnyl 50 MCG/ML VIAL (15:20)
[2018-02-20] MEDS: DEXTROSE 50% 50 ML SYRINGE IV (16:16)
[2018-02-20] MEDS: INSULIN REGULAR, HUMAN 100 UNIT/1 ML 3ML VIAL IVP ×2 (16:17→18:53)
[2018-02-20] MEDS: ALBUTEROL 0.5% (NEB) 2.5 MG/0.5 ML AMP INH (16:21)
[2018-02-20] MEDS: NA POLYST SULFON 15 GM/60 ML BTL PO ×3 (16:29→20:34)
[2018-02-20] MEDS ORDERED: hydrALAzine 20 MG INJ IV (18:30)
[2018-02-20] MEDS ORDERED: ONDANSETRON 4 MG TAB PO (18:30)
[2018-02-20] MEDS ORDERED: LORAZEPAM 2 MG INJ IV (18:30)
[2018-02-20] MEDS ORDERED: morphine 2 MG INJ IV (18:30)
[2018-02-20] MEDS ORDERED: NACL 0.9% 3 ML SYG IV (18:30)
[2018-02-20] MEDS ORDERED: MAGNESIUM HYDROXIDE 30ML CUP PO (18:30)
[2018-02-20] MEDS ORDERED: NITROGLYCERIN (SL) 0.4 MG TAB SL (18:30)
[2018-02-20] MEDS ORDERED: ALBUTEROL/IPRATROPIUM (NEB) 3 ML AMP HHN (18:30)
[2018-02-20] MEDS ORDERED: HYDROCODONE/APAP (5/325) TAB PO (18:30)
[2018-02-20] MEDS ORDERED: NA PHOSPHATE/BIPHOS 133 ML ENEMA PR (18:30)
[2018-02-20] MEDS ORDERED: DOCUSATE SODIUM 100 MG CAP PO (18:30)
[2018-02-20] MEDS ORDERED: DEXTROSE 50% 50 ML SYRINGE IV (19:00)
[2018-02-20] MEDS: CYCLOPHOSPHAMIDE 25 MG PO (19:44)
[2018-02-20 20:00] LABS: FREE T4 (FREE THYROXINE) 0.99 ng/dl (0.64-1.79)
[2018-02-20 20:18] LABS: HEPATITIS B SURFACE ANTIGEN NEGATIVE (NEGATIVE)
[2018-02-20] MEDS: ONDANSETRON 4 MG INJ IV (20:31)
[2018-02-20] MEDS: HEPARIN 1000 UNITS/ML 10 ML INJ CATHETER (23:55)
[2018-02-21] MEDS: ACETAMINOPHEN 325 MG TAB PO ×2 (00:18→14:28)
[2018-02-21 01:04] LABS: B-TYPE NATRIURETIC PEPTIDE 5390 PG/ML (0-125)
[2018-02-21 05:42] LABS: ADD MAN DIFF? NO
[2018-02-21 05:45] LABS: WHITE BLOOD COUNT 7.5 10^3/ul (4.8-10.8)
[2018-02-21 05:45] LABS: BASOPHILS % 0.1 % (0.0-2.0); EOSINOPHILS % 0.1 % (0.0-7.0); HEMATOCRIT 36.1 % (37.0-47.0); HEMOGLOBIN 11.5 g/dl (12.0-16.0); LYMPHOCYTES # 1.1 10^3/ul (0.8-2.9); LYMPHOCYTES % 14.7 % (15.0-51.0); MEAN CORPUSCULAR HEMOGLOBIN 33.1 pg (29.0-33.0); MEAN CORPUSCULAR HGB CONC 31.9 g/dl (32.0-37.0); MEAN PLATELET VOLUME 9.3 fl (7.4-10.4); MONOCYTE # 0.6 10^3/ul (0.3-0.9); MONOCYTES % 8.2 % (0.0-11.0); NEUTROPHIL # 5.6 10^3/ul (1.6-7.5); NEUTROPHILS % 74.4 % (39.0-77.0); PLATELET COUNT 306 10^3/UL (140-415); RED BLOOD COUNT 3.47 10^6/ul (4.20-5.40); RED CELL DISTRIBUTION WIDTH 14.1 % (11.5-14.5)
[2018-02-21] MEDS: PANTOPRAZOLE (EC) 40 MG TAB PO (06:12)
[2018-02-21 06:25] LABS: ANION GAP 16 (5-13); BLOOD UREA NITROGEN 62 mg/dl (7-20); CALCIUM 9.9 mg/dl (8.4-10.2); CARBON DIOXIDE 25 mmol/L (21-31); CHLORIDE 97 mmol/L (97-110); CREATININE 6.25 mg/dl (0.44-1.00); Estimated GFR 7 mL/min (>60); GLUCOSE 79 mg/dl (70-220); HDL CHOLESTEROL 50 mg/dl (34-88); PHOSPHORUS 8.6 mg/dl (2.5-4.9); POTASSIUM 4.5 mmol/L (3.5-5.1); SODIUM 138 mmol/L (135-144)
[2018-02-21 06:38] LABS: CHOL/HDL RATIO 6.8 RATIO; CHOLESTEROL 341 mg/dl (100-200); LDL CHOLESTEROL,CALCULATED 165 mg/dl; TRIGLYCERIDES 630 mg/dl (0-149)
[2018-02-21] MEDS: predniSONE 20 MG TAB PO (08:42)
[2018-02-21] MEDS: CALCIUM ACETATE 667 MG CAP PO ×2 (08:49→11:48)
[2018-02-21] MEDS: FUROSEMIDE 40 MG TAB PO (08:50)
[2018-02-21] MEDS: MULTIVIT/CA CARB/B CMPLX/FA TAB PO (08:50)
[2018-02-21 09:06] LABS: HEMOGLOBIN A1C 4.8 % (0-5.9)
[2018-02-21] MEDS: AMLODIPINE 10 MG TAB PO (11:47)
[2018-02-21] MEDS ORDERED: ATORVASTATIN 40 MG TAB PO ×2 (13:00→21:00)
[2018-02-21] MEDS ORDERED: SEVELAMER CARBONATE 800 MG TABLET PO (18:00)
== END 2018-02-21 16:14 | disposition home or self-care (01) | DRG 314 ==
LOC: E/R 10:07 → 6WM 16:20
PROC: 05HM33Z Insertion of Infusion Device into Right Internal Jugular Vein, Percutaneous Approach (ICD-10-PCS; principal; 2018-02-20 15:00)
PROC: B543ZZA Ultrasonography of Right Jugular Veins, Guidance (ICD-10-PCS; 2018-02-20 15:00)
PROC: 0JH63XZ Insertion of Tunneled Vascular Access Device into Chest Subcutaneous Tissue and Fascia, Percutaneous Approach (ICD-10-PCS; 2018-02-20 15:00)
DX: T82.42XA Displacement of vascular dialysis catheter, initial encounter (principal); N18.6 End stage renal disease; M31.0 Hypersensitivity angiitis; I47.1 Supraventricular tachycardia; Y71.8 Miscellaneous cardiovascular devices associated with adverse incidents, not elsewhere classified; E87.5 Hyperkalemia; Z87.891 Personal history of nicotine dependence; E20.9 Hypoparathyroidism, unspecified
CPT/HCPCS: 71045; 80048; 80061; 82962; 83036; 83735; 83880; 84100; 84439; 84443; 85025; 85610; 85730; 87340; 93005; 93306; 94664; 96374; 96375; 97161; 99285-25

== ENCOUNTER 2018-03-04 07:53 | Inpatient (IN) | payer MEDICARE, OTHER ==
[2018-03-04 08:34] LABS: ADD MAN DIFF? NO
[2018-03-04 08:37] LABS: WHITE BLOOD COUNT 10.2 10^3/ul (4.8-10.8)
[2018-03-04 08:37] LABS: ABNORMAL IP MESSAGE 1; BASOPHILS % 0.1 % (0.0-2.0); EOSINOPHILS % 0.1 % (0.0-7.0); LYMPHOCYTES % 19.3 % (15.0-51.0); MEAN CORPUSCULAR HEMOGLOBIN 34.5 pg (29.0-33.0); MEAN CORPUSCULAR HGB CONC 31.3 g/dl (32.0-37.0); MEAN CORPUSCULAR VOLUME 110.3 fl (82.0-101.0); MEAN PLATELET VOLUME 9.1 fl (7.4-10.4); MONOCYTE # 0.4 10^3/ul (0.3-0.9); NEUTROPHIL # 7.7 10^3/ul (1.6-7.5); NEUTROPHILS % 75.7 % (39.0-77.0); NUCLEATED RED BLOOD CELLS # 0.1 10^3/ul (0.0-0.0); NUCLEATED RED BLOOD CELLS% 1.4 /100WBC (0.0-0.0); PLATELET COUNT 230 10^3/UL (140-415); RED BLOOD COUNT 1.45 10^6/ul (4.20-5.40); RED CELL DISTRIBUTION WIDTH 15.6 % (11.5-14.5)
[2018-03-04 08:40] LABS: POSITIVE DIFF @See below
[2018-03-04 08:42] LABS: PATH REVIEW? YES
[2018-03-04 08:54] LABS: ALANINE AMINOTRANSFERASE 31 IU/L (13-69); ALBUMIN 3.4 g/dl (3.3-4.9); ALBUMIN/GLOBULIN RATIO 1.61; ALKALINE PHOSPHATASE 48 IU/L (42-121); ANION GAP 17 (5-13); ASPARTATE AMINO TRANSFERASE 20 IU/L (15-46); BLOOD UREA NITROGEN 110 mg/dl (7-20); CALCIUM 9.8 mg/dl (8.4-10.2); CARBON DIOXIDE 27 mmol/L (21-31); CHLORIDE 93 mmol/L (97-110); GLUCOSE 149 mg/dl (70-220); POTASSIUM 5.1 mmol/L (3.5-5.1); SODIUM 137 mmol/L (135-144); TOTAL PROTEIN 5.5 g/dl (6.1-8.1)
[2018-03-04 09:00] LABS: Estimated GFR 6 mL/min (>60)
[2018-03-04 09:13] LABS: CREATININE 7.31 mg/dl (0.44-1.00)
[2018-03-04 09:58] LABS: ANISOCYTOSIS 2+ (0-0); BAND NEUTROPHILS #M 0.2 10^3/ul (0.0-0.6); BAND NEUTROPHILS % (M) 2 % (0-4); ERYTHROBLAST% (NRBC) (M) 2 % (0-0); HYPOCHROMASIA 1+ (0-0); LYMPHOCYTES #M 2.3 10^3/ul (0.8-2.9); LYMPHOCYTES % (M) 23 % (15-51); MONOCYTE #M 0.6 10^3/ul (0.3-0.9); MONOCYTES % (M) 6 % (0-11); PLASMA CELLS #M 0.2 10^3/ul (0.0-0.0); PLASMAC%(M) 2 % (0); PLATELET ESTIMATE NORMAL; POLYCHROMASIA 3+ (0-0); REACTIVE LYMPHOCYTES #M 0.1 10^3/ul (0.0-0.0); REACTIVE LYMPHOCYTES% (M) 1 % (0-0); SEG NEUT #M 6.8 10^3/ul (1.6-7.5); SEGMENTED NEUTROPHILS (M) % 66 % (39-77); SMUDGE%M 1 % (0-0)
[2018-03-04] MEDS ORDERED: HYDROCODONE/APAP (5/325) TAB PO (10:00)
[2018-03-04] MEDS ORDERED: ONDANSETRON 4 MG INJ IV (10:00)
[2018-03-04] MEDS ORDERED: NACL 0.9% 3 ML SYG IV (10:00)
[2018-03-04] MEDS ORDERED: ACETAMINOPHEN 325 MG TAB PO (10:00)
[2018-03-04] MEDS ORDERED: ONDANSETRON 4 MG TAB PO (10:00)
[2018-03-04] MEDS: CALCIUM ACETATE 667 MG CAP PO ×2 (12:25→17:15)
[2018-03-04] MEDS: ACETAMINOPHEN 325 MG TAB PO (14:49)
[2018-03-04] MEDS: predniSONE 10 MG TAB PO (17:15)
[2018-03-04] MEDS: ONDANSETRON 4 MG INJ IV (18:27)
[2018-03-04 21:01] LABS: IMMEDIATE SPIN CROSSMATCH 1 2
[2018-03-04] MEDS: ATORVASTATIN 40 MG TAB PO (21:45)
[2018-03-04] MEDS: CYCLOPHOSPHAMIDE 25 MG PO (21:48)
[2018-03-05] MEDS: ACETAMINOPHEN 325 MG TAB PO (02:48)
[2018-03-05 05:22] LABS: ADD MAN DIFF? NO
[2018-03-05 05:26] LABS: WHITE BLOOD COUNT 8.4 10^3/ul (4.8-10.8)
[2018-03-05 05:26] LABS: BASOPHILS % 0.1 % (0.0-2.0); EOSINOPHILS % 0.1 % (0.0-7.0); HEMATOCRIT 22.3 % (37.0-47.0); HEMOGLOBIN 7.5 g/dl (12.0-16.0); LYMPHOCYTES # 1.8 10^3/ul (0.8-2.9); LYMPHOCYTES % 21.1 % (15.0-51.0); MEAN CORPUSCULAR HEMOGLOBIN 31.9 pg (29.0-33.0); MEAN CORPUSCULAR HGB CONC 33.6 g/dl (32.0-37.0); MEAN CORPUSCULAR VOLUME 94.9 fl (82.0-101.0); MONOCYTE # 0.7 10^3/ul (0.3-0.9); MONOCYTES % 8.1 % (0.0-11.0); NEUTROPHIL # 5.8 10^3/ul (1.6-7.5); NEUTROPHILS % 69.4 % (39.0-77.0); NUCLEATED RED BLOOD CELLS # 0.1 10^3/ul (0.0-0.0); NUCLEATED RED BLOOD CELLS% 1.2 /100WBC (0.0-0.0); PLATELET COUNT 194 10^3/UL (140-415); RED BLOOD COUNT 2.35 10^6/ul (4.20-5.40); RED CELL DISTRIBUTION WIDTH 19.5 % (11.5-14.5)
[2018-03-05 05:56] LABS: PHOSPHORUS 4.3 mg/dl (2.5-4.9)
[2018-03-05 05:56] LABS: MAGNESIUM 1.9 mg/dl (1.7-2.5)
[2018-03-05 06:19] LABS: ANION GAP 10 (5-13); BLOOD UREA NITROGEN 43 mg/dl (7-20); CALCIUM 8.4 mg/dl (8.4-10.2); CARBON DIOXIDE 30 mmol/L (21-31); CHLORIDE 97 mmol/L (97-110); CREATININE 3.39 mg/dl (0.44-1.00); Estimated GFR 14 mL/min (>60); GLUCOSE 80 mg/dl (70-220); POTASSIUM 4.2 mmol/L (3.5-5.1); SODIUM 137 mmol/L (135-144)
[2018-03-05] MEDS: CALCIUM ACETATE 667 MG CAP PO (08:20)
[2018-03-05] MEDS: MULTIVIT/CA CARB/B CMPLX/FA TAB PO (08:20)
[2018-03-05] MEDS: AMLODIPINE 10 MG TAB PO (08:21)
[2018-03-05] MEDS: predniSONE 10 MG TAB PO (08:22)
[2018-03-05] MEDS: CYCLOPHOSPHAMIDE 25 MG PO (08:26)
[2018-03-05 08:34] LABS: CHOL/HDL RATIO 5.1 RATIO; HDL CHOLESTEROL 35 mg/dl (34-88); LDL CHOLESTEROL,CALCULATED 56 mg/dl; TRIGLYCERIDES 452 mg/dl (0-149)
[2018-03-05 08:34] LABS: CHOLESTEROL 181 mg/dl (100-200)
[2018-03-05] MEDS ORDERED: FUROSEMIDE 40 MG TAB PO (09:00)
[2018-03-05 10:31] LABS: IRON 57 ug/dl (35-150)
[2018-03-05 10:40] LABS: % IRON SATURATION 19 % SAT (22-52); TOTAL IRON BINDING CAPACITY 294 ug/dl (241-421)
[2018-03-05 14:17] LABS: FOLATE > 20.0 ng/ml (2.8-20.0)
== END 2018-03-05 10:05 | disposition left against medical advice (07) | DRG 811 ==
LOC: E/R 07:53 → 6WM 11:49
PROVIDERS: Family Medicine
PROC: 30233N1 Transfusion of Nonautologous Red Blood Cells into Peripheral Vein, Percutaneous Approach (ICD-10-PCS; principal; 2018-03-04)
PROC: 5A1D70Z Performance of Urinary Filtration, Intermittent, Less than 6 Hours Per Day (ICD-10-PCS; 2018-03-04)
DX: D50.9 Iron deficiency anemia, unspecified (principal); N18.6 End stage renal disease; M31.0 Hypersensitivity angiitis; I12.0 Hypertensive chronic kidney disease with stage 5 chronic kidney disease or end stage renal disease; Z99.2 Dependence on renal dialysis
CPT/HCPCS: 36415; 36430; 71045; 80048; 80053; 80061; 82607; 82728; 82746; 83540; 83735; 84100; 85025; 86850; 86900; 86901; 86920; 90935; 99291-25

== ENCOUNTER 2018-03-29 20:18 | Inpatient (IN) | payer MEDICARE, OTHER ==
[2018-03-29] MEDS ORDERED: MAGNESIUM HYDROXIDE 30ML CUP PO (22:00)
[2018-03-29] MEDS ORDERED: ONDANSETRON 4 MG INJ IV (22:00)
[2018-03-29] MEDS ORDERED: HYDROmorphONE 0.5 MG/0.5 ML SYG IV (22:00)
[2018-03-29] MEDS: DOCUSATE SODIUM 100 MG CAP PO (22:48)
[2018-03-29] MEDS: HYDROCODONE/APAP (5/325) TAB PO (22:49)
[2018-03-30] MEDS: HYDROCODONE/APAP (5/325) TAB PO ×4 (02:53→20:51)
[2018-03-30 03:59] LABS: ADD UMIC YES; UR ASCORBIC ACID NEGATIVE (NEGATIVE); UR BACTERIA MODERATE /HPF (NONE SEEN); UR BILIRUBIN (Dip) NEGATIVE (NEGATIVE); UR BLOOD (Dip) 1+ mg/dL (NEGATIVE); UR CLARITY TURBID (CLEAR); UR COLOR YELLOW (YELLOW); UR GLUCOSE (Dip) NEGATIVE (NEGATIVE); UR KETONES (Dip) NEGATIVE (NEGATIVE); UR LEUKOCYTE ESTERASE (Dip) 3+ Leu/ul (NEGATIVE); UR NITRITE (Dip) NEGATIVE (NEGATIVE); UR NONSQUAMOUS EPITHELIAL CELL 51 /HPF (NONE SEEN); UR RBC 36 /HPF (0-5); UR SPECIFIC GRAVITY (Dip) 1.016 (1.003-1.030); UR SQUAMOUS EPITHELIAL CELL MANY /HPF (FEW); UR TOTAL PROTEIN (Dip) 3+ mg/dl (NEGATIVE); UR UROBILINOGEN (Dip) NEGATIVE (NEGATIVE); UR WBC > 182 /HPF (0-5)
[2018-03-30 06:49] LABS: ADD MAN DIFF? NO
[2018-03-30 07:00] LABS: ABNORMAL IP MESSAGE 1; BASOPHILS % 0.1 % (0.0-2.0); EOSINOPHILS % 0.2 % (0.0-7.0); HEMATOCRIT 22.9 % (37.0-47.0); LYMPHOCYTES # 1.8 10^3/ul (0.8-2.9); LYMPHOCYTES % 21.5 % (15.0-51.0); MEAN CORPUSCULAR HEMOGLOBIN 31.4 pg (29.0-33.0); MEAN CORPUSCULAR HGB CONC 30.1 g/dl (32.0-37.0); MEAN CORPUSCULAR VOLUME 104.1 fl (82.0-101.0); MONOCYTE # 0.8 10^3/ul (0.3-0.9); MONOCYTES % 9.7 % (0.0-11.0); NEUTROPHIL # 5.7 10^3/ul (1.6-7.5); NEUTROPHILS % 67.8 % (39.0-77.0); PLATELET COUNT 228 10^3/UL (140-415)
[2018-03-30 07:00] LABS: WHITE BLOOD COUNT 8.4 10^3/ul (4.8-10.8)
[2018-03-30 07:12] LABS: HEMOGLOBIN 6.9 g/dl (12.0-16.0); POSITIVE DIFF @See below
[2018-03-30 07:33] LABS: ALANINE AMINOTRANSFERASE 18 IU/L (13-69); ALBUMIN 3.6 g/dl (3.3-4.9); ALBUMIN/GLOBULIN RATIO 1.28; ALKALINE PHOSPHATASE 69 IU/L (42-121); ANION GAP 20 (5-13); ASPARTATE AMINO TRANSFERASE 16 IU/L (15-46); BLOOD UREA NITROGEN 96 mg/dl (7-20); CALCIUM 9.5 mg/dl (8.4-10.2); CARBON DIOXIDE 35 mmol/L (21-31); CHLORIDE 85 mmol/L (97-110); GLUCOSE 78 mg/dl (70-220); SODIUM 140 mmol/L (135-144); TOTAL PROTEIN 6.4 g/dl (6.1-8.1)
[2018-03-30 07:47] LABS: Estimated GFR 4 mL/min (>60)
[2018-03-30] MEDS: CALCIUM ACETATE 667 MG CAP PO ×3 (08:43→19:39)
[2018-03-30] MEDS: SEVELAMER CARBONATE 800 MG TABLET PO ×3 (08:43→19:27)
[2018-03-30] MEDS ORDERED: VITAMIN B COMPLEX/VIT C CAP PO (09:00)
[2018-03-30] MEDS: MULTIVIT/CA CARB/B CMPLX/FA TAB PO (09:00)
[2018-03-30] MEDS: BISACODYL 10 MG SUPP PR (10:00)
[2018-03-30] MEDS: ONDANSETRON (ODT) 4 MG TAB ODT (12:19)
[2018-03-30] MEDS: predniSONE 20 MG TAB PO (12:19)
[2018-03-30] MEDS: DOCUSATE SODIUM 100 MG CAP PO ×3 (12:19→20:56)
[2018-03-30 13:33] LABS: HEPATITIS B SURFACE ANTIGEN NEGATIVE (NEGATIVE)
[2018-03-30 15:15] LABS: IMMEDIATE SPIN CROSSMATCH 1 1
[2018-03-30] MEDS: HEPARIN 1000 UNITS/ML 10 ML INJ CATHETER (18:25)
[2018-03-30] MEDS: EPOETIN 4000 UNITS/1 ML INJ (ESRD) SC (19:29)
[2018-03-30] MEDS: SENNA TAB PO ×2 (20:51→20:57)
[2018-03-30] MEDS: ATORVASTATIN 40 MG TAB PO (20:51)
[2018-03-30] MEDS: LACTULOSE 30ML CUP PO (20:51)
[2018-03-31] MEDS: HYDROCODONE/APAP (5/325) TAB PO ×4 (02:14→21:17)
[2018-03-31] MEDS: ONDANSETRON (ODT) 4 MG TAB ODT ×2 (02:18→08:49)
[2018-03-31] MEDS: CALCIUM ACETATE 667 MG CAP PO ×3 (08:41→18:26)
[2018-03-31] MEDS: predniSONE 20 MG TAB PO (08:48)
[2018-03-31] MEDS: MULTIVIT/CA CARB/B CMPLX/FA TAB PO (08:48)
[2018-03-31] MEDS: DOCUSATE SODIUM 100 MG CAP PO ×2 (08:48→21:00)
[2018-03-31] MEDS ORDERED: CEFTRIAXONE 1 GM/50 ML (PMX) 50 ML IVPB (10:00)
[2018-03-31] MEDS: SEVELAMER CARBONATE 800 MG TABLET PO ×3 (10:37→18:25)
[2018-03-31] MEDS ORDERED: MAGNESIUM HYDROXIDE 30ML CUP PO (11:00)
[2018-03-31] MEDS: BISACODYL 10 MG SUPP PR (13:40)
[2018-03-31] MEDS: SENNA TAB PO (21:00)
[2018-03-31] MEDS: ATORVASTATIN 40 MG TAB PO (21:17)
[2018-03-31] MEDS: ZOLPIDEM 5 MG TAB PO (21:17)
[2018-03-31] MEDS: CEPHALEXIN 500 MG CAP PO (21:17)
[2018-04-01] MEDS: HYDROCODONE/APAP (5/325) TAB PO ×3 (06:42→20:18)
[2018-04-01 06:43] LABS: ADD MAN DIFF? NO
[2018-04-01 06:47] LABS: WHITE BLOOD COUNT 8.5 10^3/ul (4.8-10.8)
[2018-04-01 06:47] LABS: EOSINOPHILS % 0.1 % (0.0-7.0); HEMATOCRIT 26.7 % (37.0-47.0); LYMPHOCYTES # 2.2 10^3/ul (0.8-2.9); LYMPHOCYTES % 25.4 % (15.0-51.0); MEAN CORPUSCULAR HEMOGLOBIN 30.3 pg (29.0-33.0); MEAN CORPUSCULAR HGB CONC 30.3 g/dl (32.0-37.0); MEAN PLATELET VOLUME 9.9 fl (7.4-10.4); MONOCYTE # 0.8 10^3/ul (0.3-0.9); MONOCYTES % 9.9 % (0.0-11.0); NEUTROPHIL # 5.4 10^3/ul (1.6-7.5); NEUTROPHILS % 64.2 % (39.0-77.0); PLATELET COUNT 233 10^3/UL (140-415); RED BLOOD COUNT 2.67 10^6/ul (4.20-5.40); RED CELL DISTRIBUTION WIDTH 16.5 % (11.5-14.5)
[2018-04-01 07:02] LABS: ANION GAP 19 (5-13); BLOOD UREA NITROGEN 75 mg/dl (7-20); CALCIUM 9.7 mg/dl (8.4-10.2); CARBON DIOXIDE 28 mmol/L (21-31); CHLORIDE 92 mmol/L (97-110); GLUCOSE 87 mg/dl (70-220); POTASSIUM 5.3 mmol/L (3.5-5.1); SODIUM 139 mmol/L (135-144)
[2018-04-01 07:09] LABS: Estimated GFR 4 mL/min (>60)
[2018-04-01 07:10] LABS: CREATININE 9.45 mg/dl (0.44-1.00)
[2018-04-01 07:18] LABS: HEMOGLOBIN 8.1 g/dl (12.0-16.0)
[2018-04-01] MEDS: CALCIUM ACETATE 667 MG CAP PO ×3 (07:58→18:05)
[2018-04-01] MEDS: SEVELAMER CARBONATE 800 MG TABLET PO ×3 (07:58→18:05)
[2018-04-01] MEDS: MULTIVIT/CA CARB/B CMPLX/FA TAB PO (09:00)
[2018-04-01] MEDS: DOCUSATE SODIUM 100 MG CAP PO ×2 (11:06→21:45)
[2018-04-01] MEDS: ONDANSETRON (ODT) 4 MG TAB ODT ×2 (11:07→17:09)
[2018-04-01] MEDS: CEPHALEXIN 500 MG CAP PO ×2 (11:07→21:46)
[2018-04-01] MEDS: predniSONE 20 MG TAB PO (11:08)
[2018-04-01] MEDS: HEPARIN 1000 UNITS/ML 10 ML INJ CATHETER (21:01)
[2018-04-01] MEDS: EPOETIN 4000 UNITS/1 ML INJ (ESRD) SC (21:45)
[2018-04-01] MEDS: ATORVASTATIN 40 MG TAB PO (21:45)
[2018-04-01] MEDS: SENNA TAB PO (21:46)
[2018-04-01] MEDS: ZOLPIDEM 5 MG TAB PO (21:46)
[2018-04-02] MEDS: ONDANSETRON (ODT) 4 MG TAB ODT ×3 (05:07→19:38)
[2018-04-02] MEDS: HYDROCODONE/APAP (5/325) TAB PO ×3 (05:07→21:22)
[2018-04-02] MEDS: CALCIUM ACETATE 667 MG CAP PO ×3 (08:00→17:29)
[2018-04-02] MEDS: SEVELAMER CARBONATE 800 MG TABLET PO ×3 (08:00→17:29)
[2018-04-02] MEDS: DOCUSATE SODIUM 100 MG CAP PO ×2 (09:11→20:36)
[2018-04-02] MEDS: MULTIVIT/CA CARB/B CMPLX/FA TAB PO (09:11)
[2018-04-02] MEDS: predniSONE 20 MG TAB PO (09:11)
[2018-04-02] MEDS: CEPHALEXIN 500 MG CAP PO ×2 (09:13→20:36)
[2018-04-02] MEDS ORDERED: GUAIFENESIN 20 MG/ML 5ML CUP PO (11:00)
[2018-04-02] MEDS: CHOLECALCIFEROL 2,000 UNIT CAP PO (12:32)
[2018-04-02] MEDS: ATORVASTATIN 40 MG TAB PO (20:36)
[2018-04-02] MEDS: SENNA TAB PO (20:36)
[2018-04-02] MEDS: ZOLPIDEM 5 MG TAB PO (21:22)
[2018-04-02] MEDS: GUAIFENESIN 20 MG/ML 5ML CUP PO (21:25)
[2018-04-03 07:18] LABS: ADD MAN DIFF? NO
[2018-04-03 07:26] LABS: BASOPHILS % 0.2 % (0.0-2.0); EOSINOPHILS % 0.1 % (0.0-7.0); HEMATOCRIT 27.2 % (37.0-47.0); HEMOGLOBIN 8.4 g/dl (12.0-16.0); LYMPHOCYTES # 2.6 10^3/ul (0.8-2.9); MEAN CORPUSCULAR HEMOGLOBIN 30.4 pg (29.0-33.0); MEAN CORPUSCULAR HGB CONC 30.9 g/dl (32.0-37.0); MEAN CORPUSCULAR VOLUME 98.6 fl (82.0-101.0); MEAN PLATELET VOLUME 9.6 fl (7.4-10.4); MONOCYTE # 0.9 10^3/ul (0.3-0.9); MONOCYTES % 9.3 % (0.0-11.0); NEUTROPHILS % 62.9 % (39.0-77.0); PLATELET COUNT 237 10^3/UL (140-415); RED BLOOD COUNT 2.76 10^6/ul (4.20-5.40); RED CELL DISTRIBUTION WIDTH 15.4 % (11.5-14.5)
[2018-04-03 07:26] LABS: WHITE BLOOD COUNT 9.5 10^3/ul (4.8-10.8)
[2018-04-03 07:41] LABS: ANION GAP 21 (5-13); BLOOD UREA NITROGEN 73 mg/dl (7-20); CALCIUM 9.7 mg/dl (8.4-10.2); CARBON DIOXIDE 24 mmol/L (21-31); CHLORIDE 93 mmol/L (97-110); GLUCOSE 85 mg/dl (70-220); POTASSIUM 5.5 mmol/L (3.5-5.1); SODIUM 138 mmol/L (135-144)
[2018-04-03 07:47] LABS: Estimated GFR 5 mL/min (>60)
[2018-04-03 07:51] LABS: CREATININE 8.65 mg/dl (0.44-1.00)
[2018-04-03] MEDS: CALCIUM ACETATE 667 MG CAP PO ×3 (08:11→17:24)
[2018-04-03] MEDS: SEVELAMER CARBONATE 800 MG TABLET PO ×3 (08:11→17:24)
[2018-04-03] MEDS: MULTIVIT/CA CARB/B CMPLX/FA TAB PO (08:12)
[2018-04-03] MEDS: HYDROCODONE/APAP (5/325) TAB PO ×3 (08:12→23:41)
[2018-04-03] MEDS: CEPHALEXIN 500 MG CAP PO ×2 (08:13→21:09)
[2018-04-03] MEDS: CHOLECALCIFEROL 2,000 UNIT CAP PO (08:13)
[2018-04-03] MEDS: DOCUSATE SODIUM 100 MG CAP PO ×2 (08:13→21:09)
[2018-04-03] MEDS: predniSONE 20 MG TAB PO (08:14)
[2018-04-03] MEDS: ERGOCALCIFEROL 50,000 UNIT CAP PO (12:00)
[2018-04-03] MEDS: ONDANSETRON (ODT) 4 MG TAB ODT ×3 (12:40→21:08)
[2018-04-03] MEDS: SODIUM POLYSTYRENE 15 GM KIT (POWDER + SORBITOL) PO (16:30)
[2018-04-03] MEDS ORDERED: HEPARIN 1000 UNITS/ML 10 ML INJ CATHETER (17:30)
[2018-04-03] MEDS: AL HYDROX/MG HYDROX/SIMETH 30 ML CUP PO (21:08)
[2018-04-03] MEDS: SENNA TAB PO (21:09)
[2018-04-03] MEDS: ZOLPIDEM 5 MG TAB PO (21:09)
[2018-04-03] MEDS: ATORVASTATIN 40 MG TAB PO (21:09)
[2018-04-04] MEDS: AMLODIPINE 10 MG TAB PO (01:46)
[2018-04-04] MEDS: ACETAMINOPHEN 325 MG TAB PO ×2 (01:46→22:33)
[2018-04-04] MEDS: CALCIUM ACETATE 667 MG CAP PO ×3 (07:45→18:30)
[2018-04-04] MEDS: SEVELAMER CARBONATE 800 MG TABLET PO ×3 (07:45→18:29)
[2018-04-04] MEDS: DOCUSATE SODIUM 100 MG CAP PO ×2 (10:06→22:26)
[2018-04-04] MEDS: ONDANSETRON (ODT) 4 MG TAB ODT ×2 (10:19→16:38)
[2018-04-04] MEDS: CEPHALEXIN 500 MG CAP PO ×2 (10:20→22:27)
[2018-04-04] MEDS: HYDROCODONE/APAP (5/325) TAB PO ×3 (10:20→18:31)
[2018-04-04] MEDS: predniSONE 20 MG TAB PO (10:21)
[2018-04-04] MEDS: MULTIVIT/CA CARB/B CMPLX/FA TAB PO (10:37)
[2018-04-04] MEDS: ERGOCALCIFEROL 50,000 UNIT CAP PO (10:37)
[2018-04-04] MEDS: HEPARIN 1000 UNITS/ML 10 ML INJ CATHETER (19:47)
[2018-04-04] MEDS: SENNA TAB PO (22:25)
[2018-04-04] MEDS: EPOETIN 4000 UNITS/1 ML INJ (ESRD) SC (22:26)
[2018-04-04] MEDS: ATORVASTATIN 40 MG TAB PO (22:27)
[2018-04-05] MEDS: SEVELAMER CARBONATE 800 MG TABLET PO ×3 (07:59→17:19)
[2018-04-05] MEDS: CALCIUM ACETATE 667 MG CAP PO ×3 (08:00→17:19)
[2018-04-05] MEDS: HYDROCODONE/APAP (5/325) TAB PO ×2 (08:00→16:07)
[2018-04-05] MEDS: DOCUSATE SODIUM 100 MG CAP PO ×2 (09:00→21:41)
[2018-04-05] MEDS: predniSONE 20 MG TAB PO (09:54)
[2018-04-05] MEDS: CEPHALEXIN 500 MG CAP PO ×2 (09:54→21:40)
[2018-04-05] MEDS: MULTIVIT/CA CARB/B CMPLX/FA TAB PO (09:54)
[2018-04-05] MEDS ORDERED: HEPARIN 1000 UNITS/ML 10 ML INJ CATHETER (14:30)
[2018-04-05] MEDS ORDERED: GUAIFENESIN LA 600 MG TABSR PO (17:00)
[2018-04-05] MEDS: ONDANSETRON (ODT) 4 MG TAB ODT (17:27)
[2018-04-05] MEDS: GUAIFENESIN LA 600 MG TABSR PO (21:40)
[2018-04-05] MEDS: SENNA TAB PO (21:41)
[2018-04-05] MEDS: ATORVASTATIN 40 MG TAB PO (21:41)
[2018-04-06] MEDS: HYDROCODONE/APAP (5/325) TAB PO (01:16)
[2018-04-06] MEDS: ONDANSETRON (ODT) 4 MG TAB ODT ×3 (01:59→15:57)
[2018-04-06] MEDS: PANTOPRAZOLE 40 MG INJ IV (03:18)
[2018-04-06 03:26] LABS: ADD MAN DIFF? NO
[2018-04-06 03:27] LABS: WHITE BLOOD COUNT 12.2 10^3/ul (4.8-10.8)
[2018-04-06 03:27] LABS: BASOPHILS % 0.2 % (0.0-2.0); EOSINOPHILS % 0.1 % (0.0-7.0); HEMATOCRIT 25.1 % (37.0-47.0); HEMOGLOBIN 7.6 g/dl (12.0-16.0); LYMPHOCYTES # 2.7 10^3/ul (0.8-2.9); LYMPHOCYTES % 22.1 % (15.0-51.0); MEAN CORPUSCULAR HEMOGLOBIN 29.9 pg (29.0-33.0); MEAN CORPUSCULAR HGB CONC 30.3 g/dl (32.0-37.0); MEAN CORPUSCULAR VOLUME 98.8 fl (82.0-101.0); MEAN PLATELET VOLUME 9.3 fl (7.4-10.4); MONOCYTE # 1.1 10^3/ul (0.3-0.9); MONOCYTES % 8.6 % (0.0-11.0); NEUTROPHIL # 8.3 10^3/ul (1.6-7.5); NEUTROPHILS % 68.1 % (39.0-77.0); NUCLEATED RED BLOOD CELLS% 0.2 /100WBC (0.0-0.0); PLATELET COUNT 320 10^3/UL (140-415); RED BLOOD COUNT 2.54 10^6/ul (4.20-5.40); RED CELL DISTRIBUTION WIDTH 15.3 % (11.5-14.5)
[2018-04-06 04:07] LABS: ALANINE AMINOTRANSFERASE 16 IU/L (13-69); ALBUMIN 3.7 g/dl (3.3-4.9); ALBUMIN/GLOBULIN RATIO 1.32; ALKALINE PHOSPHATASE 85 IU/L (42-121); ANION GAP 17 (5-13); ASPARTATE AMINO TRANSFERASE 20 IU/L (15-46); BLOOD UREA NITROGEN 95 mg/dl (7-20); CALCIUM 9.7 mg/dl (8.4-10.2); CARBON DIOXIDE 34 mmol/L (21-31); CHLORIDE 89 mmol/L (97-110); GLUCOSE 103 mg/dl (70-220); POTASSIUM 5.1 mmol/L (3.5-5.1); SODIUM 140 mmol/L (135-144); TOTAL PROTEIN 6.5 g/dl (6.1-8.1)
[2018-04-06 04:12] LABS: Estimated GFR 5 mL/min (>60)
[2018-04-06 04:23] LABS: CREATININE 8.94 mg/dl (0.44-1.00)
[2018-04-06 07:39] LABS: ANION GAP 20 (5-13); BLOOD UREA NITROGEN 105 mg/dl (7-20); CALCIUM 9.7 mg/dl (8.4-10.2); CARBON DIOXIDE 33 mmol/L (21-31); CHLORIDE 86 mmol/L (97-110); GLUCOSE 89 mg/dl (70-220); POTASSIUM 4.8 mmol/L (3.5-5.1); SODIUM 139 mmol/L (135-144)
[2018-04-06 07:48] LABS: Estimated GFR 5 mL/min (>60)
[2018-04-06 07:53] LABS: CREATININE 9.02 mg/dl (0.44-1.00)
[2018-04-06] MEDS: SEVELAMER CARBONATE 800 MG TABLET PO ×3 (07:55→17:23)
[2018-04-06] MEDS: CALCIUM ACETATE 667 MG CAP PO ×3 (07:55→17:23)
[2018-04-06] MEDS: DOCUSATE SODIUM 100 MG CAP PO ×2 (09:00→20:36)
[2018-04-06] MEDS: MULTIVIT/CA CARB/B CMPLX/FA TAB PO (09:38)
[2018-04-06] MEDS: CEPHALEXIN 500 MG CAP PO ×2 (09:38→20:36)
[2018-04-06] MEDS: predniSONE 20 MG TAB PO (09:38)
[2018-04-06] MEDS: GUAIFENESIN LA 600 MG TABSR PO ×2 (09:39→20:36)
[2018-04-06] MEDS ORDERED: SUCRALFATE (100 MG/ML) 10ML CUP PO (10:30)
[2018-04-06] MEDS: SOD CHLORIDE 0.9% 250 ML IV* (10:30)
[2018-04-06] MEDS: SOD CHLORIDE 0.9% 1,000 ML IV (10:48)
[2018-04-06] MEDS: PANTOPRAZOLE IV 80 MG in SOD CHLORIDE 0.9% 100 ML IV ×2 (14:34→22:44)
[2018-04-06] MEDS: SUCRALFATE (100 MG/ML) 10ML CUP PO ×3 (14:53→20:35)
[2018-04-06 17:15] LABS: HEMATOCRIT 17.1 % (37.0-47.0)
[2018-04-06 17:37] LABS: HEMOGLOBIN 5.2 g/dl (12.0-16.0)
[2018-04-06] MEDS ORDERED: PANTOPRAZOLE 40 MG INJ IV (18:00)
[2018-04-06 19:55] LABS: ADD MAN DIFF? NO
[2018-04-06 19:56] LABS: WHITE BLOOD COUNT 11.6 10^3/ul (4.8-10.8)
[2018-04-06 19:56] LABS: BASOPHILS % 0.1 % (0.0-2.0); HEMATOCRIT 28.7 % (37.0-47.0); LYMPHOCYTES # 1.6 10^3/ul (0.8-2.9); LYMPHOCYTES % 13.6 % (15.0-51.0); MEAN CORPUSCULAR HEMOGLOBIN 29.6 pg (29.0-33.0); MEAN CORPUSCULAR HGB CONC 31.4 g/dl (32.0-37.0); MEAN CORPUSCULAR VOLUME 94.4 fl (82.0-101.0); MEAN PLATELET VOLUME 9.1 fl (7.4-10.4); MONOCYTE # 0.4 10^3/ul (0.3-0.9); MONOCYTES % 3.3 % (0.0-11.0); NEUTROPHIL # 9.5 10^3/ul (1.6-7.5); NEUTROPHILS % 81.7 % (39.0-77.0); PLATELET COUNT 286 10^3/UL (140-415); RED BLOOD COUNT 3.04 10^6/ul (4.20-5.40); RED CELL DISTRIBUTION WIDTH 15.9 % (11.5-14.5)
[2018-04-06] MEDS: ATORVASTATIN 40 MG TAB PO (20:35)
[2018-04-06] MEDS: SENNA TAB PO (20:36)
[2018-04-06] MEDS: EPOETIN 4000 UNITS/1 ML INJ (ESRD) SC (20:40)
[2018-04-06] MEDS: ZOLPIDEM 5 MG TAB PO (22:50)
[2018-04-07 06:05] LABS: ADD MAN DIFF? NO
[2018-04-07 06:13] LABS: WHITE BLOOD COUNT 7.9 10^3/ul (4.8-10.8)
[2018-04-07 06:13] LABS: BASOPHILS % 0.1 % (0.0-2.0); EOSINOPHILS % 0.4 % (0.0-7.0); HEMOGLOBIN 7.5 g/dl (12.0-16.0); LYMPHOCYTES # 1.9 10^3/ul (0.8-2.9); LYMPHOCYTES % 24.7 % (15.0-51.0); MEAN CORPUSCULAR HGB CONC 31.3 g/dl (32.0-37.0); MEAN PLATELET VOLUME 9.3 fl (7.4-10.4); MONOCYTE # 0.7 10^3/ul (0.3-0.9); MONOCYTES % 8.6 % (0.0-11.0); NEUTROPHIL # 5.1 10^3/ul (1.6-7.5); NEUTROPHILS % 64.5 % (39.0-77.0); NUCLEATED RED BLOOD CELLS% 0.3 /100WBC (0.0-0.0); PLATELET COUNT 238 10^3/UL (140-415); RED CELL DISTRIBUTION WIDTH 17.1 % (11.5-14.5)
[2018-04-07 06:45] LABS: ANION GAP 13 (5-13); BLOOD UREA NITROGEN 41 mg/dl (7-20); CALCIUM 9.3 mg/dl (8.4-10.2); CARBON DIOXIDE 26 mmol/L (21-31); CHLORIDE 103 mmol/L (97-110); CREATININE 4.91 mg/dl (0.44-1.00); Estimated GFR 9 mL/min (>60); GLUCOSE 101 mg/dl (70-220); POTASSIUM 4.7 mmol/L (3.5-5.1); SODIUM 142 mmol/L (135-144)
[2018-04-07] MEDS: CALCIUM ACETATE 667 MG CAP PO ×3 (07:35→17:50)
[2018-04-07] MEDS: SEVELAMER CARBONATE 800 MG TABLET PO ×3 (07:35→17:50)
[2018-04-07] MEDS: DOCUSATE SODIUM 100 MG CAP PO ×2 (09:00→20:22)
[2018-04-07] MEDS: CEPHALEXIN 500 MG CAP PO ×2 (09:03→20:21)
[2018-04-07] MEDS: HYDROCODONE/APAP (5/325) TAB PO (09:03)
[2018-04-07] MEDS: MULTIVIT/CA CARB/B CMPLX/FA TAB PO (09:03)
[2018-04-07] MEDS: GUAIFENESIN LA 600 MG TABSR PO ×2 (09:04→20:21)
[2018-04-07] MEDS: PANTOPRAZOLE IV 80 MG in SOD CHLORIDE 0.9% 100 ML IV ×2 (09:04→17:48)
[2018-04-07] MEDS: predniSONE 20 MG TAB PO (09:05)
[2018-04-07] MEDS: ONDANSETRON (ODT) 4 MG TAB ODT ×2 (09:20→20:27)
[2018-04-07] MEDS ORDERED: OCTREOTIDE 50 MCG in SOD CHLORIDE 0.9% 50 ML IVPB (10:30)
[2018-04-07 11:18] LABS: IMMEDIATE SPIN CROSSMATCH 1 2
[2018-04-07] MEDS: SOD CHLORIDE 0.9% 250 ML IV* (11:30)
[2018-04-07] MEDS: OCTREOTIDE 50 MCG INJ SC (13:17)
[2018-04-07] MEDS: SOD FERRIC GLUC COMPLX 125 MG in SOD CHLORIDE 0.9% 100 ML IVPB (13:19)
[2018-04-07] MEDS ORDERED: PROPOFOL 20 ML (15:43)
[2018-04-07] MEDS ORDERED: SODIUM CHLORIDE 0.9% 1L BAG IV (17:00)
[2018-04-07 18:02] LABS: ADD MAN DIFF? NO
[2018-04-07 18:04] LABS: BASOPHILS % 0.2 % (0.0-2.0); HEMATOCRIT 28.8 % (37.0-47.0); HEMOGLOBIN 9.2 g/dl (12.0-16.0); LYMPHOCYTES # 1.6 10^3/ul (0.8-2.9); LYMPHOCYTES % 18.1 % (15.0-51.0); MEAN CORPUSCULAR HEMOGLOBIN 29.9 pg (29.0-33.0); MEAN CORPUSCULAR HGB CONC 31.9 g/dl (32.0-37.0); MEAN CORPUSCULAR VOLUME 93.5 fl (82.0-101.0); MEAN PLATELET VOLUME 8.7 fl (7.4-10.4); MONOCYTE # 0.3 10^3/ul (0.3-0.9); MONOCYTES % 2.9 % (0.0-11.0); NEUTROPHIL # 6.6 10^3/ul (1.6-7.5); NEUTROPHILS % 77.3 % (39.0-77.0); PLATELET COUNT 223 10^3/UL (140-415); RED BLOOD COUNT 3.08 10^6/ul (4.20-5.40); RED CELL DISTRIBUTION WIDTH 16.5 % (11.5-14.5)
[2018-04-07 18:04] LABS: WHITE BLOOD COUNT 8.6 10^3/ul (4.8-10.8)
[2018-04-07] MEDS: ATORVASTATIN 40 MG TAB PO (20:20)
[2018-04-07] MEDS: SENNA TAB PO (20:22)
[2018-04-07] MEDS: ZOLPIDEM 5 MG TAB PO (22:06)
[2018-04-07] MEDS: SUCRALFATE (100 MG/ML) 10ML CUP PO (23:54)
[2018-04-08] MEDS: HYDROCODONE/APAP (5/325) TAB PO ×3 (02:15→22:02)
[2018-04-08] MEDS: PANTOPRAZOLE IV 80 MG in SOD CHLORIDE 0.9% 100 ML IV (04:00)
[2018-04-08 06:28] LABS: ADD MAN DIFF? NO
[2018-04-08 06:37] LABS: BASOPHILS % 0.1 % (0.0-2.0); EOSINOPHILS % 0.1 % (0.0-7.0); HEMATOCRIT 27.1 % (37.0-47.0); HEMOGLOBIN 8.7 g/dl (12.0-16.0); LYMPHOCYTES # 1.8 10^3/ul (0.8-2.9); LYMPHOCYTES % 22.4 % (15.0-51.0); MEAN CORPUSCULAR HEMOGLOBIN 29.6 pg (29.0-33.0); MEAN CORPUSCULAR HGB CONC 32.1 g/dl (32.0-37.0); MEAN CORPUSCULAR VOLUME 92.2 fl (82.0-101.0); MONOCYTE # 0.6 10^3/ul (0.3-0.9); MONOCYTES % 7.1 % (0.0-11.0); NEUTROPHIL # 5.5 10^3/ul (1.6-7.5); NEUTROPHILS % 68.7 % (39.0-77.0); NUCLEATED RED BLOOD CELLS% 0.2 /100WBC (0.0-0.0); PLATELET COUNT 236 10^3/UL (140-415); RED BLOOD COUNT 2.94 10^6/ul (4.20-5.40)
[2018-04-08 06:37] LABS: WHITE BLOOD COUNT 8.1 10^3/ul (4.8-10.8)
[2018-04-08] MEDS: SEVELAMER CARBONATE 800 MG TABLET PO ×3 (08:41→17:35)
[2018-04-08] MEDS: CALCIUM ACETATE 667 MG CAP PO ×3 (08:41→17:38)
[2018-04-08] MEDS: GUAIFENESIN LA 600 MG TABSR PO ×2 (08:41→20:19)
[2018-04-08] MEDS: CEPHALEXIN 500 MG CAP PO ×2 (08:41→20:19)
[2018-04-08] MEDS: MULTIVIT/CA CARB/B CMPLX/FA TAB PO (08:42)
[2018-04-08] MEDS: predniSONE 20 MG TAB PO (08:42)
[2018-04-08] MEDS: DOCUSATE SODIUM 100 MG CAP PO ×2 (08:42→21:00)
[2018-04-08] MEDS: SUCRALFATE (100 MG/ML) 10ML CUP PO ×4 (08:46→21:56)
[2018-04-08] MEDS: ACETAMINOPHEN 325 MG TAB PO (11:59)
[2018-04-08] MEDS: SOD FERRIC GLUC COMPLX 125 MG in SOD CHLORIDE 0.9% 100 ML IVPB (12:42)
[2018-04-08] MEDS: ONDANSETRON (ODT) 4 MG TAB ODT ×2 (14:21→20:25)
[2018-04-08] MEDS: PANTOPRAZOLE 40 MG INJ IV ×2 (17:38→18:00)
[2018-04-08 18:03] LABS: WHITE BLOOD COUNT 10.2 10^3/ul (4.8-10.8)
[2018-04-08 18:03] LABS: ADD MAN DIFF? NO; BASOPHILS % 0.1 % (0.0-2.0); HEMATOCRIT 29.7 % (37.0-47.0); HEMOGLOBIN 9.5 g/dl (12.0-16.0); LYMPHOCYTES # 1.2 10^3/ul (0.8-2.9); LYMPHOCYTES % 11.7 % (15.0-51.0); MEAN CORPUSCULAR HEMOGLOBIN 29.5 pg (29.0-33.0); MEAN CORPUSCULAR VOLUME 92.2 fl (82.0-101.0); MEAN PLATELET VOLUME 9.1 fl (7.4-10.4); MONOCYTE # 0.2 10^3/ul (0.3-0.9); MONOCYTES % 1.9 % (0.0-11.0); NEUTROPHIL # 8.7 10^3/ul (1.6-7.5); NUCLEATED RED BLOOD CELLS% 0.2 /100WBC (0.0-0.0); PLATELET COUNT 238 10^3/UL (140-415); RED BLOOD COUNT 3.22 10^6/ul (4.20-5.40); RED CELL DISTRIBUTION WIDTH 15.9 % (11.5-14.5)
[2018-04-08] MEDS: ATORVASTATIN 40 MG TAB PO (20:19)
[2018-04-08] MEDS: EPOETIN 4000 UNITS/1 ML INJ (ESRD) SC (20:20)
[2018-04-08] MEDS: SENNA TAB PO (21:00)
[2018-04-08] MEDS: PANTOPRAZOLE (EC) 40 MG TAB PO (21:56)
[2018-04-08] MEDS: ZOLPIDEM 5 MG TAB PO (21:56)
[2018-04-09] MEDS: ONDANSETRON (ODT) 4 MG TAB ODT (02:26)
[2018-04-09] MEDS ORDERED: PANTOPRAZOLE IV 80 MG in SOD CHLORIDE 0.9% 100 ML IVPB (06:00)
== END 2018-04-09 06:30 | disposition short-term general hospital (02) | DRG 559 ==
LOC: VRC 20:18
PROC: F07Z5ZZ Bed Mobility Treatment (ICD-10-PCS; principal; 2018-04-07 15:01)
PROC: F07Z9ZZ Gait Training/Functional Ambulation Treatment (ICD-10-PCS; 2018-04-07 15:01)
PROC: F07Z8ZZ Transfer Training Treatment (ICD-10-PCS; 2018-04-07 15:01)
PROC: F08Z2ZZ Grooming/Personal Hygiene Treatment (ICD-10-PCS; 2018-04-07 15:01)
PROC: F08Z1ZZ Dressing Techniques Treatment (ICD-10-PCS; 2018-04-07 15:01)
PROC: F08Z0ZZ Bathing/Showering Techniques Treatment (ICD-10-PCS; 2018-04-07 15:01)
PROC: 5A1D70Z Performance of Urinary Filtration, Intermittent, Less than 6 Hours Per Day (ICD-10-PCS; 2018-04-07 15:01)
PROC: 30233N1 Transfusion of Nonautologous Red Blood Cells into Peripheral Vein, Percutaneous Approach (ICD-10-PCS; 2018-04-07 15:01)
PROC: 0DB68ZX Excision of Stomach, Via Natural or Artificial Opening Endoscopic, Diagnostic (ICD-10-PCS; 2018-04-07 15:01)
DX: S32.011D Stable burst fracture of first lumbar vertebra, subsequent encounter for fracture with routine healing (principal); N18.6 End stage renal disease; K26.0 Acute duodenal ulcer with hemorrhage; K29.71 Gastritis, unspecified, with bleeding; M31.0 Hypersensitivity angiitis; N39.0 Urinary tract infection, site not specified; D62 Acute posthemorrhagic anemia; I12.0 Hypertensive chronic kidney disease with stage 5 chronic kidney disease or end stage renal disease; D63.1 Anemia in chronic kidney disease; E87.5 Hyperkalemia; E55.9 Vitamin D deficiency, unspecified; E78.5 Hyperlipidemia, unspecified; E66.9 Obesity, unspecified; K59.00 Constipation, unspecified; K20.9 Esophagitis, unspecified; W18.30XD Fall on same level, unspecified, subsequent encounter; Z74.09 Other reduced mobility; Z99.2 Dependence on renal dialysis; Z68.32 Body mass index [BMI] 32.0-32.9, adult; Z87.891 Personal history of nicotine dependence
CPT/HCPCS: 36430; 71045; 80048; 80053; 81001; 82652; 85014; 85018; 85025; 86644; 86850; 86900; 86901; 86920; 87081; 87086; 87340; 88305; 90935; 97110; 97112; 97116; 97150; 97163; 97166; 97530; 97535

== ENCOUNTER 2018-04-09 06:05 | Inpatient (IN) | payer MEDICARE, OTHER ==
[~2018-04-09 06:05] MED LIST: PANTOPRAZOLE 40 MG INJ
[2018-04-09] MEDS ORDERED: ALBUTEROL/IPRATROPIUM (NEB) 3 ML AMP HHN (07:00)
[2018-04-09] MEDS ORDERED: NACL 0.9% 3 ML SYG IV ×2 (07:00→10:30)
[2018-04-09] MEDS: DEXTROSE 5%-0.45% NACL 1,000 ML IV ×4 (07:10→23:51)
[2018-04-09 08:19] LABS: WHITE BLOOD COUNT 11.4 10^3/ul (4.8-10.8)
[2018-04-09 08:19] LABS: ABNORMAL IP MESSAGE 1; ADD MAN DIFF? NO; BASOPHILS % 0.2 % (0.0-2.0); EOSINOPHILS % 0.1 % (0.0-7.0); HEMATOCRIT 22.1 % (37.0-47.0); LYMPHOCYTES # 2.4 10^3/ul (0.8-2.9); LYMPHOCYTES % 21.3 % (15.0-51.0); MEAN CORPUSCULAR HEMOGLOBIN 29.7 pg (29.0-33.0); MEAN CORPUSCULAR HGB CONC 31.2 g/dl (32.0-37.0); MEAN CORPUSCULAR VOLUME 95.3 fl (82.0-101.0); MEAN PLATELET VOLUME 9.3 fl (7.4-10.4); MONOCYTE # 0.7 10^3/ul (0.3-0.9); MONOCYTES % 6.2 % (0.0-11.0); NEUTROPHILS % 70.3 % (39.0-77.0); NUCLEATED RED BLOOD CELLS% 0.3 /100WBC (0.0-0.0); PLATELET COUNT 239 10^3/UL (140-415); RED BLOOD COUNT 2.32 10^6/ul (4.20-5.40); RED CELL DISTRIBUTION WIDTH 16.1 % (11.5-14.5)
[2018-04-09 08:21] LABS: POSITIVE DIFF @See below
[2018-04-09 08:24] LABS: HEMOGLOBIN 6.9 g/dl (12.0-16.0); PATH REVIEW? YES
[2018-04-09 08:39] LABS: ALANINE AMINOTRANSFERASE 21 IU/L (13-69); ALBUMIN 2.9 g/dl (3.3-4.9); ALBUMIN/GLOBULIN RATIO 1.31; ALKALINE PHOSPHATASE 81 IU/L (42-121); ANION GAP 11 (5-13); ASPARTATE AMINO TRANSFERASE 26 IU/L (15-46); BLOOD UREA NITROGEN 55 mg/dl (7-20); CALCIUM 8.6 mg/dl (8.4-10.2); CARBON DIOXIDE 23 mmol/L (21-31); CHLORIDE 105 mmol/L (97-110); CREATININE 5.11 mg/dl (0.44-1.00); Estimated GFR 9 mL/min (>60); GLUCOSE 91 mg/dl (70-220); POTASSIUM 4.7 mmol/L (3.5-5.1); SODIUM 139 mmol/L (135-144); TOTAL PROTEIN 5.1 g/dl (6.1-8.1)
[2018-04-09] MEDS: PANTOPRAZOLE IV 80 MG in SOD CHLORIDE 0.9% 100 ML IV ×2 (09:00→18:03)
[2018-04-09] MEDS: ALBUMIN HUMAN 25% 100 ML IV (09:09)
[2018-04-09] MEDS ORDERED: ACETAMINOPHEN 650 MG SUPP PR (10:30)
[2018-04-09] MEDS ORDERED: LIDOCAINE 1% (MPF) 5 ML VIAL SC (10:30)
[2018-04-09] MEDS ORDERED: ONDANSETRON 4 MG INJ IV (10:30)
[2018-04-09 10:48] LABS: ANISOCYTOSIS 2+ (0-0); BAND NEUTROPHILS #M 0.2 10^3/ul (0.0-0.6); BAND NEUTROPHILS % (M) 2 % (0-4); BURR CELLS 1+ (0-0); ERYTHROBLAST% (NRBC) (M) 2 % (0-0); LYMPHOCYTES #M 1.7 10^3/ul (0.8-2.9); LYMPHOCYTES % (M) 15 % (15-51); MICROCYTOSIS 2+ (0-0); MONOCYTE #M 0.2 10^3/ul (0.3-0.9); MONOCYTES % (M) 2 % (0-11); PLATELET ESTIMATE NORMAL; POIKILOCYTOSIS 1+ (0-0); POLYCHROMASIA 3+ (0-0); SCHISTOCYTES 1+ (0-0); SEG NEUT #M 9.3 10^3/ul (1.6-7.5); SEGMENTED NEUTROPHILS (M) % 81 % (39-77); SMUDGE%M 3 % (0-0)
[2018-04-09] MEDS: morphine 4 MG/ML VIAL IV (11:44)
[2018-04-09] MEDS: ONDANSETRON 4 MG INJ IV ×2 (11:55→21:00)
[2018-04-09] MEDS: SUCRALFATE (100 MG/ML) 10ML CUP PO ×4 (12:51→22:14)
[2018-04-09 14:16] LABS: IMMEDIATE SPIN CROSSMATCH 1 4
[2018-04-09] MEDS: SOD CHLORIDE 0.9% 250 ML IV* (14:30)
[2018-04-09 22:47] LABS: ADD MAN DIFF? NO
[2018-04-09 22:48] LABS: ABNORMAL IP MESSAGE 1; BASOPHILS % 0.1 % (0.0-2.0); EOSINOPHILS % 0.1 % (0.0-7.0); LYMPHOCYTES # 2.8 10^3/ul (0.8-2.9); LYMPHOCYTES % 18.3 % (15.0-51.0); MEAN CORPUSCULAR HEMOGLOBIN 30.5 pg (29.0-33.0); MEAN CORPUSCULAR HGB CONC 31.9 g/dl (32.0-37.0); MEAN CORPUSCULAR VOLUME 95.8 fl (82.0-101.0); MEAN PLATELET VOLUME 8.7 fl (7.4-10.4); MONOCYTE # 1.2 10^3/ul (0.3-0.9); MONOCYTES % 7.4 % (0.0-11.0); NEUTROPHIL # 10.9 10^3/ul (1.6-7.5); NEUTROPHILS % 70.5 % (39.0-77.0); NUCLEATED RED BLOOD CELLS # 0.1 10^3/ul (0.0-0.0); NUCLEATED RED BLOOD CELLS% 0.5 /100WBC (0.0-0.0); PLATELET COUNT 174 10^3/UL (140-415); RED BLOOD COUNT 1.67 10^6/ul (4.20-5.40); RED CELL DISTRIBUTION WIDTH 15.8 % (11.5-14.5)
[2018-04-09 22:48] LABS: WHITE BLOOD COUNT 15.4 10^3/ul (4.8-10.8)
[2018-04-09 22:52] LABS: POSITIVE DIFF @See below
[2018-04-09 22:54] LABS: HEMOGLOBIN 5.1 g/dl (12.0-16.0)
[2018-04-09] MEDS: SOD CHLORIDE 0.9% 250 ML IV (23:01)
[2018-04-09 23:07] LABS: LACTIC ACID 1.5 mmol/L (0.5-2.0)
[2018-04-09 23:07] LABS: ANION GAP 8 (5-13); BLOOD UREA NITROGEN 69 mg/dl (7-20); CARBON DIOXIDE 21 mmol/L (21-31); CHLORIDE 109 mmol/L (97-110); Estimated GFR 7 mL/min (>60); GLUCOSE 115 mg/dl (70-220); MAGNESIUM 1.9 mg/dl (1.7-2.5); PHOSPHORUS 3.6 mg/dl (2.5-4.9); POTASSIUM 5.8 mmol/L (3.5-5.1); SODIUM 138 mmol/L (135-144)
[2018-04-09 23:18] LABS: TROPONIN-I 0.016 ng/ml (0.000-0.120)
[2018-04-09] MEDS ORDERED: PHENYLephrine 20MG IN 250 ML 250 ML (23:33)
[2018-04-09] MEDS: PHENYLephrine 80 MG in DEXTROSE 5% 242 ML IV (23:54)
[2018-04-10] MEDS: PANTOPRAZOLE IV 80 MG in SOD CHLORIDE 0.9% 100 ML IV ×3 (05:00→21:20)
[2018-04-10] MEDS: LORAZEPAM 2 MG INJ IV ×2 (05:31→20:04)
[2018-04-10 08:07] LABS: ADD MAN DIFF? NO
[2018-04-10 08:09] LABS: WHITE BLOOD COUNT 8.3 10^3/ul (4.8-10.8)
[2018-04-10 08:09] LABS: BASOPHILS % 0.1 % (0.0-2.0); EOSINOPHILS % 0.2 % (0.0-7.0); HEMOGLOBIN 7.7 g/dl (12.0-16.0); LYMPHOCYTES # 2.1 10^3/ul (0.8-2.9); LYMPHOCYTES % 25.8 % (15.0-51.0); MEAN CORPUSCULAR HEMOGLOBIN 30.6 pg (29.0-33.0); MEAN CORPUSCULAR HGB CONC 33.5 g/dl (32.0-37.0); MEAN CORPUSCULAR VOLUME 91.3 fl (82.0-101.0); MEAN PLATELET VOLUME 8.9 fl (7.4-10.4); MONOCYTE # 0.6 10^3/ul (0.3-0.9); MONOCYTES % 6.8 % (0.0-11.0); NEUTROPHIL # 5.3 10^3/ul (1.6-7.5); NEUTROPHILS % 64.2 % (39.0-77.0); NUCLEATED RED BLOOD CELLS # 0.1 10^3/ul (0.0-0.0); NUCLEATED RED BLOOD CELLS% 0.7 /100WBC (0.0-0.0); PLATELET COUNT 134 10^3/UL (140-415); RED BLOOD COUNT 2.52 10^6/ul (4.20-5.40)
[2018-04-10 08:29] LABS: ANION GAP 8 (5-13); BLOOD UREA NITROGEN 80 mg/dl (7-20); CALCIUM 8.1 mg/dl (8.4-10.2); CARBON DIOXIDE 18 mmol/L (21-31); CHLORIDE 111 mmol/L (97-110); CREATININE 6.71 mg/dl (0.44-1.00); Estimated GFR 7 mL/min (>60); GLUCOSE 88 mg/dl (70-220); MAGNESIUM 1.9 mg/dl (1.7-2.5); PHOSPHORUS 3.7 mg/dl (2.5-4.9); SODIUM 137 mmol/L (135-144)
[2018-04-10] MEDS ORDERED: INSULIN REGULAR, HUMAN 100 UNIT/1 ML 3ML VIAL IVP (09:15)
[2018-04-10] MEDS ORDERED: DEXTROSE 50% 50 ML SYRINGE IV (09:30)
[2018-04-10] MEDS: DEXTROSE 5%-0.45% NACL 1,000 ML IV ×3 (12:24→22:08)
[2018-04-10] MEDS: CALCIUM GLUCONATE 10% 2 GM in DEXTROSE 5% 100 ML IVPB (14:57)
[2018-04-10] MEDS: SUCRALFATE (100 MG/ML) 10ML CUP PO ×3 (14:59→20:03)
[2018-04-10 16:30] LABS: POTASSIUM 3.2 mmol/L (3.5-5.1)
[2018-04-10] MEDS: PROPOFOL 20 ML (17:31)
[2018-04-10] MEDS: LIDOCAINE 2% (SDV) 5 ML INJ (17:31)
[2018-04-10] MEDS: ETOMIDATE 20 MG INJ (17:32)
[2018-04-10] MEDS ORDERED: PROPOFOL 40 ML (18:29)
[2018-04-10] MEDS: ACETAMINOPHEN 325 MG TAB PO (20:04)
[2018-04-11] MEDS: morphine 4 MG/ML VIAL IV (01:57)
[2018-04-11] MEDS ORDERED: MAGNESIUM SULFATE 1 GM/D5W 100 ML (05:57)
[2018-04-11] MEDS ORDERED: POTASSIUM CHLORIDE 100 ML IVPB (05:57)
[2018-04-11] MEDS: DEXTROSE 5%-0.45% NACL 1,000 ML IV ×2 (05:59→08:05)
[2018-04-11] MEDS: MAGNESIUM SULFATE 1 GM/D5W 100 ML IVPB (06:00)
[2018-04-11] MEDS: POTASSIUM CHLORIDE 100 ML IVPB ×4 (06:06→10:00)
[2018-04-11] MEDS: PANTOPRAZOLE IV 80 MG in SOD CHLORIDE 0.9% 100 ML IV ×2 (06:30→21:28)
[2018-04-11] MEDS: SUCRALFATE (100 MG/ML) 10ML CUP PO ×4 (09:59→21:28)
[2018-04-11] MEDS: SOD CHLORIDE 0.9% 1,000 ML IV (10:42)
[2018-04-11 11:36] LABS: ADD MAN DIFF? NO
[2018-04-11 11:37] LABS: BASOPHILS % 0.1 % (0.0-2.0); EOSINOPHILS % 0.6 % (0.0-7.0); MEAN CORPUSCULAR HEMOGLOBIN 30.3 pg (29.0-33.0); MEAN CORPUSCULAR HGB CONC 33.3 g/dl (32.0-37.0); MEAN CORPUSCULAR VOLUME 90.9 fl (82.0-101.0); MEAN PLATELET VOLUME 8.8 fl (7.4-10.4); MONOCYTE # 0.5 10^3/ul (0.3-0.9); MONOCYTES % 6.6 % (0.0-11.0); NEUTROPHIL # 5.2 10^3/ul (1.6-7.5); NEUTROPHILS % 75.2 % (39.0-77.0); NUCLEATED RED BLOOD CELLS% 0.3 /100WBC (0.0-0.0); PLATELET COUNT 134 10^3/UL (140-415); RED BLOOD COUNT 2.31 10^6/ul (4.20-5.40); RED CELL DISTRIBUTION WIDTH 15.9 % (11.5-14.5)
[2018-04-11 11:37] LABS: WHITE BLOOD COUNT 6.9 10^3/ul (4.8-10.8)
[2018-04-11 11:58] LABS: ALBUMIN 2.6 g/dl (3.3-4.9); ANION GAP 8 (5-13); BLOOD UREA NITROGEN 30 mg/dl (7-20); CALCIUM 8.3 mg/dl (8.4-10.2); CARBON DIOXIDE 24 mmol/L (21-31); CHLORIDE 100 mmol/L (97-110); CREATININE 4.61 mg/dl (0.44-1.00); GLUCOSE 68 mg/dl (70-220); PHOSPHORUS 4.1 mg/dl (2.5-4.9); POTASSIUM 4.2 mmol/L (3.5-5.1); SODIUM 132 mmol/L (135-144)
[2018-04-11] MEDS ORDERED: SODIUM CHLORIDE 0.9% 1L BAG IV (15:00)
[2018-04-11] MEDS: BISACODYL (EC) 5 MG TAB PO (15:09)
[2018-04-11] MEDS: ONDANSETRON 4 MG INJ IV ×2 (15:44→21:42)
[2018-04-11] MEDS: ACETAMINOPHEN 325 MG TAB PO (17:05)
[2018-04-11] MEDS: MAGNESIUM CITRATE 300 ML BTL PO (17:25)
[2018-04-11] MEDS: POLYETHYLENE GLYCOL 3350 119 GM POWDER PO (18:10)
[2018-04-12] MEDS: PANTOPRAZOLE IV 80 MG in SOD CHLORIDE 0.9% 100 ML IV ×2 (06:41→17:00)
[2018-04-12] MEDS: POLYETHYLENE GLYCOL 3350 119 GM POWDER PO (06:41)
[2018-04-12] MEDS: SOD CHLORIDE 0.9% 1,000 ML IV (06:42)
[2018-04-12] MEDS: BISACODYL (EC) 5 MG TAB PO (08:17)
[2018-04-12] MEDS: SUCRALFATE (100 MG/ML) 10ML CUP PO ×4 (08:19→20:30)
[2018-04-12 08:28] LABS: ADD MAN DIFF? NO
[2018-04-12 08:31] LABS: ABNORMAL IP MESSAGE 1; EOSINOPHILS % 0.5 % (0.0-7.0); HEMATOCRIT 20.6 % (37.0-47.0); LYMPHOCYTES # 0.9 10^3/ul (0.8-2.9); MEAN CORPUSCULAR HEMOGLOBIN 30.6 pg (29.0-33.0); MEAN CORPUSCULAR VOLUME 92.8 fl (82.0-101.0); MEAN PLATELET VOLUME 8.7 fl (7.4-10.4); MONOCYTE # 0.4 10^3/ul (0.3-0.9); MONOCYTES % 6.9 % (0.0-11.0); NEUTROPHIL # 4.5 10^3/ul (1.6-7.5); NEUTROPHILS % 75.9 % (39.0-77.0); PLATELET COUNT 125 10^3/UL (140-415); RED BLOOD COUNT 2.22 10^6/ul (4.20-5.40); RED CELL DISTRIBUTION WIDTH 15.8 % (11.5-14.5)
[2018-04-12 08:31] LABS: WHITE BLOOD COUNT 5.9 10^3/ul (4.8-10.8)
[2018-04-12 08:34] LABS: POSITIVE DIFF @See below
[2018-04-12 08:36] LABS: HEMOGLOBIN 6.8 g/dl (12.0-16.0)
[2018-04-12 08:54] LABS: ALBUMIN 2.6 g/dl (3.3-4.9); ANION GAP 10 (5-13); BLOOD UREA NITROGEN 34 mg/dl (7-20); CALCIUM 8.5 mg/dl (8.4-10.2); CARBON DIOXIDE 22 mmol/L (21-31); CHLORIDE 103 mmol/L (97-110); CREATININE 6.55 mg/dl (0.44-1.00); GLUCOSE 68 mg/dl (70-220); MAGNESIUM 2.4 mg/dl (1.7-2.5); POTASSIUM 4.4 mmol/L (3.5-5.1); SODIUM 135 mmol/L (135-144)
[2018-04-12 12:31] LABS: IMMEDIATE SPIN CROSSMATCH 1 1
[2018-04-12] MEDS: PROPOFOL 20 ML (14:56)
[2018-04-12] MEDS ORDERED: ONDANSETRON 4 MG INJ IV (15:30)
[2018-04-12] MEDS ORDERED: morphine LIQ (10 MG/5 ML) CUP PO (16:00)
[2018-04-12] MEDS: MESALAMINE (SR) 250 MG CAP PO ×2 (17:44→20:30)
[2018-04-12] MEDS: EPOETIN 3000 UNITS/1 ML INJ (ESRD) SC (17:46)
[2018-04-12] MEDS: FENTAnyl 50 MCG/ML VIAL (19:26)
[2018-04-12] MEDS: ACETAMINOPHEN 325 MG TAB PO (22:11)
[2018-04-13] MEDS: LORAZEPAM 2 MG INJ IV (01:11)
[2018-04-13] MEDS: PANTOPRAZOLE IV 80 MG in SOD CHLORIDE 0.9% 100 ML IV (03:07)
[2018-04-13 08:54] LABS: ADD MAN DIFF? NO
[2018-04-13 09:01] LABS: WHITE BLOOD COUNT 5.5 10^3/ul (4.8-10.8)
[2018-04-13 09:01] LABS: BASOPHILS % 0.2 % (0.0-2.0); EOSINOPHILS % 0.7 % (0.0-7.0); HEMATOCRIT 23.5 % (37.0-47.0); HEMOGLOBIN 7.8 g/dl (12.0-16.0); LYMPHOCYTES # 1.2 10^3/ul (0.8-2.9); LYMPHOCYTES % 21.4 % (15.0-51.0); MEAN CORPUSCULAR HEMOGLOBIN 29.5 pg (29.0-33.0); MEAN CORPUSCULAR HGB CONC 33.2 g/dl (32.0-37.0); MEAN PLATELET VOLUME 9.3 fl (7.4-10.4); MONOCYTE # 0.5 10^3/ul (0.3-0.9); MONOCYTES % 8.4 % (0.0-11.0); NEUTROPHIL # 3.7 10^3/ul (1.6-7.5); NEUTROPHILS % 68.4 % (39.0-77.0); PLATELET COUNT 140 10^3/UL (140-415); RED BLOOD COUNT 2.64 10^6/ul (4.20-5.40)
[2018-04-13] MEDS: SUCRALFATE (100 MG/ML) 10ML CUP PO ×4 (09:15→22:38)
[2018-04-13] MEDS: MESALAMINE (SR) 250 MG CAP PO ×4 (09:16→22:38)
[2018-04-13 09:33] LABS: ANION GAP 6 (5-13); BLOOD UREA NITROGEN 20 mg/dl (7-20); CALCIUM 8.2 mg/dl (8.4-10.2); CARBON DIOXIDE 27 mmol/L (21-31); CHLORIDE 104 mmol/L (97-110); CREATININE 5.24 mg/dl (0.44-1.00); Estimated GFR 9 mL/min (>60); GLUCOSE 83 mg/dl (70-220); POTASSIUM 3.9 mmol/L (3.5-5.1); SODIUM 137 mmol/L (135-144)
[2018-04-13] MEDS: ONDANSETRON 4 MG INJ IV (12:17)
[2018-04-13] MEDS: HYDROCODONE/APAP (5/325) TAB PO (13:38)
[2018-04-13] MEDS: GUAIFENESIN/DM (SR) TAB PO (13:38)
[2018-04-13] MEDS: PANTOPRAZOLE 40 MG INJ IV (18:08)
[2018-04-13] MEDS: hydrALAzine 20 MG INJ IV (20:29)
[2018-04-13] MEDS: ACETAMINOPHEN 325 MG TAB PO (20:52)
[2018-04-13] MEDS: LORAZEPAM 0.5 MG TAB PO (22:41)
[2018-04-14] MEDS: PANTOPRAZOLE (EC) 40 MG TAB PO ×2 (05:29→17:51)
[2018-04-14] MEDS: ACETAMINOPHEN 325 MG TAB PO ×3 (06:51→21:38)
[2018-04-14] MEDS: MESALAMINE (SR) 250 MG CAP PO ×4 (09:00→20:08)
[2018-04-14] MEDS: SUCRALFATE (100 MG/ML) 10ML CUP PO ×4 (09:00→20:08)
[2018-04-14] MEDS: BARIUM SULFATE 0.1% 450 ML BTL (VOLUMEN) PO (10:15)
[2018-04-14 10:52] LABS: MYELOPEROXIDASE ANTIBODY <1.0 AI; PROTEINASE-3 ANTIBODY <1.0 AI
[2018-04-14] MEDS: SOD CHLORIDE 0.9% 100 ML ×2 (10:53→11:45)
[2018-04-14] MEDS: IOHEXOL 100 ML (10:53)
[2018-04-14] MEDS: IOHEXOL 350MG/ML 50 ML BTL (10:56)
[2018-04-14] MEDS: IODIXANOL LOCM 100 ML BTL (11:45)
[2018-04-14] MEDS: IODIXANOL LOCM 50 ML BTL (11:45)
[2018-04-14] MEDS: GLUCAGON 1 MG INJ (11:50)
[2018-04-14] MEDS: BARIUM SULF 2% 450 ML BTL (BERRY SMOOTHIE) PO (12:13)
[2018-04-14] MEDS: predniSONE 5 MG TAB PO (13:03)
[2018-04-14] MEDS: GUAIFENESIN/DM (SR) TAB PO ×2 (13:09→22:25)
[2018-04-14 13:11] LABS: ANCA SCREEN NEGATIVE (NEGATIVE)
[2018-04-14 14:37] LABS: ADD MAN DIFF? NO
[2018-04-14 14:48] LABS: BASOPHILS % 0.2 % (0.0-2.0); EOSINOPHILS % 0.3 % (0.0-7.0); HEMATOCRIT 25.4 % (37.0-47.0); LYMPHOCYTES % 8.4 % (15.0-51.0); MEAN CORPUSCULAR HEMOGLOBIN 28.4 pg (29.0-33.0); MEAN CORPUSCULAR HGB CONC 31.5 g/dl (32.0-37.0); MEAN CORPUSCULAR VOLUME 90.1 fl (82.0-101.0); MEAN PLATELET VOLUME 9.1 fl (7.4-10.4); MONOCYTE # 0.6 10^3/ul (0.3-0.9); MONOCYTES % 5.3 % (0.0-11.0); NEUTROPHIL # 9.9 10^3/ul (1.6-7.5); NEUTROPHILS % 85.3 % (39.0-77.0); PLATELET COUNT 160 10^3/UL (140-415); RED BLOOD COUNT 2.82 10^6/ul (4.20-5.40); RED CELL DISTRIBUTION WIDTH 16.5 % (11.5-14.5)
[2018-04-14 14:48] LABS: WHITE BLOOD COUNT 11.6 10^3/ul (4.8-10.8)
[2018-04-14] MEDS ORDERED: LOPERAMIDE 2 MG CAP PO (15:00)
[2018-04-14 15:05] LABS: ALBUMIN 2.8 g/dl (3.3-4.9); ANION GAP 10 (5-13); BLOOD UREA NITROGEN 30 mg/dl (7-20); CALCIUM 8.6 mg/dl (8.4-10.2); CARBON DIOXIDE 23 mmol/L (21-31); CHLORIDE 100 mmol/L (97-110); CREATININE 7.71 mg/dl (0.44-1.00); GLUCOSE 94 mg/dl (70-220); MAGNESIUM 1.9 mg/dl (1.7-2.5); PHOSPHORUS 3.8 mg/dl (2.5-4.9); POTASSIUM 4.5 mmol/L (3.5-5.1); SODIUM 133 mmol/L (135-144)
[2018-04-14] MEDS: EPOETIN 3000 UNITS/1 ML INJ (ESRD) SC (17:53)
[2018-04-14] MEDS: ONDANSETRON (ODT) 4 MG TAB ODT (20:06)
[2018-04-14] MEDS: LORAZEPAM 0.5 MG TAB PO (21:37)
[2018-04-15] MEDS: HYDROCODONE/APAP (5/325) TAB PO ×2 (02:05→20:18)
[2018-04-15] MEDS: PANTOPRAZOLE (EC) 40 MG TAB PO ×2 (07:46→18:15)
[2018-04-15] MEDS: predniSONE 5 MG TAB PO (08:44)
[2018-04-15] MEDS: MESALAMINE (SR) 250 MG CAP PO ×4 (08:45→20:18)
[2018-04-15] MEDS: SUCRALFATE (100 MG/ML) 10ML CUP PO ×4 (08:45→20:17)
[2018-04-15 11:04] LABS: ADD MAN DIFF? NO
[2018-04-15 11:10] LABS: WHITE BLOOD COUNT 6.9 10^3/ul (4.8-10.8)
[2018-04-15 11:10] LABS: BASOPHILS % 0.1 % (0.0-2.0); EOSINOPHILS % 0.6 % (0.0-7.0); HEMATOCRIT 25.1 % (37.0-47.0); HEMOGLOBIN 7.9 g/dl (12.0-16.0); LYMPHOCYTES # 1.1 10^3/ul (0.8-2.9); LYMPHOCYTES % 15.4 % (15.0-51.0); MEAN CORPUSCULAR HEMOGLOBIN 28.7 pg (29.0-33.0); MEAN CORPUSCULAR HGB CONC 31.5 g/dl (32.0-37.0); MEAN CORPUSCULAR VOLUME 91.3 fl (82.0-101.0); MEAN PLATELET VOLUME 8.8 fl (7.4-10.4); MONOCYTE # 0.7 10^3/ul (0.3-0.9); NEUTROPHIL # 5.1 10^3/ul (1.6-7.5); NEUTROPHILS % 73.5 % (39.0-77.0); PLATELET COUNT 177 10^3/UL (140-415); RED BLOOD COUNT 2.75 10^6/ul (4.20-5.40)
[2018-04-15 11:29] LABS: ALBUMIN 2.8 g/dl (3.3-4.9); ANION GAP 9 (5-13); BLOOD UREA NITROGEN 16 mg/dl (7-20); CALCIUM 8.7 mg/dl (8.4-10.2); CARBON DIOXIDE 28 mmol/L (21-31); CHLORIDE 101 mmol/L (97-110); CREATININE 5.44 mg/dl (0.44-1.00); GLUCOSE 110 mg/dl (70-220); MAGNESIUM 1.9 mg/dl (1.7-2.5); PHOSPHORUS 2.8 mg/dl (2.5-4.9); POTASSIUM 4.1 mmol/L (3.5-5.1); SODIUM 138 mmol/L (135-144)
[2018-04-15] MEDS: ACETAMINOPHEN 325 MG TAB PO (12:02)
[2018-04-15] MEDS: ONDANSETRON (ODT) 4 MG TAB ODT (17:50)
[2018-04-15] MEDS: LORAZEPAM 0.5 MG TAB PO (22:07)
[2018-04-16] MEDS: ACETAMINOPHEN 325 MG TAB PO (03:24)
[2018-04-16] MEDS: PANTOPRAZOLE (EC) 40 MG TAB PO (06:18)
[2018-04-16] MEDS: SUCRALFATE (100 MG/ML) 10ML CUP PO ×2 (08:19→13:48)
[2018-04-16] MEDS: ONDANSETRON 4 MG INJ IV ×2 (08:19→08:55)
[2018-04-16] MEDS: MESALAMINE (SR) 250 MG CAP PO ×2 (08:19→13:48)
[2018-04-16] MEDS: predniSONE 5 MG TAB PO (08:19)
[2018-04-16] MEDS: ONDANSETRON (ODT) 4 MG TAB ODT (10:20)
[2018-04-16] MEDS: CEPASTAT LOZENGE MT (10:22)
[2018-04-16] MEDS: GUAIFENESIN/DM (SR) TAB PO (10:22)
== END 2018-04-16 14:20 | disposition home health service (06) | DRG 377 ==
LOC: 6WM 06:05 → MS1 04-13 18:25 → 6WM 04-11 11:15 → ICU 23:20
PROC: 0DJ08ZZ Inspection of Upper Intestinal Tract, Via Natural or Artificial Opening Endoscopic (ICD-10-PCS; principal; 2018-04-10 17:00)
PROC: 0DBC8ZX Excision of Ileocecal Valve, Via Natural or Artificial Opening Endoscopic, Diagnostic (ICD-10-PCS; 2018-04-10 17:20)
PROC: 5A1D70Z Performance of Urinary Filtration, Intermittent, Less than 6 Hours Per Day (ICD-10-PCS; 2018-04-10 17:20)
PROC: 30233N1 Transfusion of Nonautologous Red Blood Cells into Peripheral Vein, Percutaneous Approach (ICD-10-PCS; 2018-04-10 17:20)
DX: K26.0 Acute duodenal ulcer with hemorrhage (principal); N18.6 End stage renal disease; M31.0 Hypersensitivity angiitis; K63.3 Ulcer of intestine; I12.0 Hypertensive chronic kidney disease with stage 5 chronic kidney disease or end stage renal disease; D63.1 Anemia in chronic kidney disease; D50.0 Iron deficiency anemia secondary to blood loss (chronic); E66.9 Obesity, unspecified; E78.00 Pure hypercholesterolemia, unspecified; E87.5 Hyperkalemia; K29.71 Gastritis, unspecified, with bleeding; K20.9 Esophagitis, unspecified; K64.8 Other hemorrhoids; M81.0 Age-related osteoporosis without current pathological fracture; S32.011D Stable burst fracture of first lumbar vertebra, subsequent encounter for fracture with routine healing; W18.30XD Fall on same level, unspecified, subsequent encounter; Z99.2 Dependence on renal dialysis; Z68.32 Body mass index [BMI] 32.0-32.9, adult; Z87.891 Personal history of nicotine dependence; Z79.52 Long term (current) use of systemic steroids
CPT/HCPCS: 36430; 74178; 80048; 80053; 80069; 83605; 83735; 84100; 84132; 84484; 84703; 85025; 86021; 86850; 86900; 86901; 86920; 87081; 88305; 90935; 93005; 97162; 97167

== ENCOUNTER 2018-06-22 12:48 | Emergency (ER) | payer MEDICARE, OTHER ==
[2018-06-22] MEDS: morphine LIQ (10 MG/5 ML) CUP PO (14:31)
== END 2018-06-22 15:46 | disposition home or self-care (01) ==
LOC: FTE 12:48
DX: M79.604 Pain in right leg (principal)
CPT/HCPCS: 73590; 93971; 99284-25